=== PATIENT | female | born 1955 | race Caucasian/White ===

== ENCOUNTER 2020-02-18 16:38 | Emergency (ER) | payer SELFPAY | END 2020-02-18 17:04 | disposition home or self-care (01) | LOC: ERS 16:38 | DX: J44.9 Chronic obstructive pulmonary disease, unspecified (principal); F41.9 Anxiety disorder, unspecified; Z87.891 Personal history of nicotine dependence; Z76.0 Encounter for issue of repeat prescription | CPT/HCPCS: 99284 ==

== ENCOUNTER 2020-03-17 19:30 | Emergency (ER) | payer SELFPAY | END 2020-03-17 20:11 | disposition home or self-care (01) | LOC: ERS 19:30 → MERGE 19:30 → ERS 20:11 | DX: Z76.0 Encounter for issue of repeat prescription (principal); J44.9 Chronic obstructive pulmonary disease, unspecified; F17.210 Nicotine dependence, cigarettes, uncomplicated | CPT/HCPCS: 99281 ==

== ENCOUNTER 2020-04-04 16:56 | Emergency (ER) | payer SELFPAY | END 2020-04-04 17:41 | disposition home or self-care (01) | LOC: ERS 16:56 | DX: Z76.0 Encounter for issue of repeat prescription (principal); J44.9 Chronic obstructive pulmonary disease, unspecified; F41.9 Anxiety disorder, unspecified; F17.210 Nicotine dependence, cigarettes, uncomplicated; Z79.51 Long term (current) use of inhaled steroids | CPT/HCPCS: 99281 ==

== ENCOUNTER 2020-07-05 13:09 | Emergency (ER) | payer SELFPAY ==
[2020-07-05] MEDS ORDERED: Magnesium 2 GM/50 ML BAG (IN WATER) ONE (13:34)
[2020-07-05] MEDS ORDERED: Albuterol Sulfate 2.5 mg/3 ml Neb ONE (13:38)
--- NOTE | 2020-07-05 14:12 | RAD ---
Chest AP view INDICATION: Dyspnea COMPARISON: June 05, 2020 FINDINGS: Lungs: Chronic lung changes appear stable. Pleural-parenchymal scarring involving lung apices is sim ilar appearing. Cardiac silhouette: The cardiomediastinal silhouette appears within normal limits. Pulmonary vasculature: Normal Pleural spaces: No pleural effusion or pneumothorax is demonstrated. Upper abdomen: No abnormality seen. Osseous structures: Mild scoliosis is similar appearing. No definite acute osseous abnormality. Additional findings: None. IMPRESSION: No acute cardiopulmonary abnormality.
[2020-07-05 14:14] LABS: #Basophils 0.1 thou/uL (0.0-0.2); #Eosinphils 0.9 thou/uL (0.0-0.7); #Lymphocytes 3.1 thou/uL (1.20-3.40); #Monocytes 0.8 thou/uL (0.11-0.59); #Neutrophils 13.2 thou/uL (1.40-6.50); %Basophils 0.8 % (0.0-1.0); %Eosinophils 4.7 % (0.0-10.0); %Lymphocytes 17.3 % (21.0-51.0); %Monocytes 4.4 % (0.0-10.0); %Neutrophils 72.9 % (42.0-75.0); Hemoglobin 15.5 g/dL (12.0-16.0); Mean Corpuscular HGB CONC 32.8 g/dL (32.0-36.0); Mean Corpuscular Hemoglobin 33.2 pg (27.0-31.0); Mean Platelet Volume 8.3 fL (7.4-10.4); Platelet Count 350 thou/uL (130-400); RBC Distribution Width 11.8 % (11.5-14.5); Red Blood Cell (RBC) Count 4.66 mill/uL (4.20-5.40); White Blood Cell (WBC) Count 18.2 thou/uL (4.8-10.8)
[2020-07-05 14:35] LABS: ALT (SGPT) 10 U/L (8-55); AST (SGOT) 15 U/L (5-34); Albumin 4.4 g/dL (3.4-4.8); Alkaline Phosphatase 67 U/L (40-110); Anion Gap 13 mmol/L (10-20); BUN (Urea Nitrogen) 12 mg/dL (9.8-20.1); Bilirubin, Total 0.3 mg/dL (0.2-1.2); Calc. Creatinine Clearance 0 mL/min (70-130); Calcium 9.2 mg/dL (7.8-10.44); Carbon Dioxide 25 mmol/L (23-31); Chloride 107 mmol/L (98-107); Estimated GFR-MDRD 73; Globulin 2.7 g/dL (2.4-3.5); Glucose 106 mg/dL (80-115); Potassium 3.7 mmol/L (3.5-5.1); Protein, Total 7.1 g/dL (6.0-8.3); Sodium 141 mmol/L (136-145)
== END 2020-07-05 17:30 | disposition home or self-care (01) ==
LOC: ERS 13:09
DX: J44.1 Chronic obstructive pulmonary disease with (acute) exacerbation (principal); F41.9 Anxiety disorder, unspecified; F17.210 Nicotine dependence, cigarettes, uncomplicated; Z79.51 Long term (current) use of inhaled steroids
CPT/HCPCS: 36415; 71045; 80053; 83880; 84484; 85025; 93005; 94644; 96374; J3475; J7611

== ENCOUNTER 2020-09-21 09:45 | Inpatient (IN) | payer SELFPAY ==
[2020-09-21] MEDS ORDERED: Succinylcholine 200 MG/10 ml SYRINGE FS ONE (09:51)
[2020-09-21] MEDS ORDERED: Midazolam HCl 2 mg/2 ml Vial ONE (09:51)
[2020-09-21] MEDS ORDERED: Propofol 1,000 MG/100 ML VIAL IV ONE (10:14)
[2020-09-21 10:31] LABS: #Basophils 0.2 thou/uL (0.0-0.2); #Eosinphils 0.7 thou/uL (0.0-0.7); #Lymphocytes 5.9 thou/uL (1.20-3.40); #Monocytes 0.9 thou/uL (0.11-0.59); #Neutrophils 6.3 thou/uL (1.40-6.50); %Basophils 1.3 % (0.0-1.0); %Eosinophils 4.8 % (0.0-10.0); %Lymphocytes 42.3 % (21.0-51.0); %Monocytes 6.5 % (0.0-10.0); %Neutrophils 45.2 % (42.0-75.0); Hemoglobin 13.3 g/dL (12.0-16.0); Mean Corpuscular HGB CONC 32.7 g/dL (32.0-36.0); Mean Corpuscular Hemoglobin 31.9 pg (27.0-31.0); Mean Corpuscular Volume 97.8 fL (78.0-98.0); Platelet Count 340 thou/uL (130-400); RBC Distribution Width 12.1 % (11.5-14.5); Red Blood Cell (RBC) Count 4.16 mill/uL (4.20-5.40)
[2020-09-21 10:37] LABS: Actual Bicarbonate (HCO3a) 18.3 mEq/L (22-28); Analyzer IN Cardio ER; Base Excess (BEa) -7.8 mEq/L (-2.0 to +3.0); CO2 Tension 39.7 mmHg (35.0-45.0); Calcium, Ionized (arterial) 1.17 mmol/L (1.12-1.30); Carboxyhemoglobin (COHb) 1.9 gm% (0.0-3.0); Hemoglobin (Hb) 13.6 g/dL (12.0-16.0); O2 Tension (PaO2), arterial 403.4 mmHg (> 80.0); Potassium - ABG Lab 3.52 mmol/L (3.70-5.30); Puncture Site LBA; pH, Arterial 7.28 (7.35-7.45)
[2020-09-21 10:38] LABS: ALV-art Gradient -96.525 mmHg (0-20)
[2020-09-21] MEDS ORDERED: Vancomycin 1 GM/200 ML BAG ONE (10:38)
[2020-09-21] MEDS ORDERED: Nitroglycerin 2% Ointment 1 INCH/1 GM Packet ONE (10:38)
[2020-09-21] MEDS ORDERED: Cefepime 2 GM VIAL ONE (10:38)
--- NOTE | 2020-09-21 10:51 | RAD ---
PORTABLE CHEST 1 VIEW: DATE: 09/21/2020. TIME: 10:20 AM. HISTORY: Respiratory failure. COMPARISON: 07/05/2020. FINDINGS/IMPRESSION: An endotracheal tube is present with tips at the level of the clavicular heads. The nasogastric tube can be traced into the stomach with tip excluded from the film. The heart size is normal. The aort a is tortuous. Chronic changes in the lung apices are again noted. No lobar consolidation, pneumoth oraces, or pleural effusions are seen. POS: MZA
[2020-09-21] MEDS ORDERED: Midazolam HCl 5 mg/ml Vial ONE (11:02)
[2020-09-21] MEDS ORDERED: Ondansetron PF 4 MG/2 ML Vial IVP PRN (11:06)
[2020-09-21] MEDS ORDERED: Guaifenesin DM 100-10/5 ML UDCUP PO PRN (11:06)
[2020-09-21] MEDS ORDERED: Bisacodyl 10 MG SUPP PR PRN (11:06)
[2020-09-21 11:16] LABS: Albumin 3.7 g/dL (3.4-4.8)
[2020-09-21 11:18] LABS: Calcium 8.6 mg/dL (7.8-10.44); Chloride 109 mmol/L (98-107); Potassium 3.9 mmol/L (3.5-5.1); Sodium 141 mmol/L (136-145)
[2020-09-21 11:19] LABS: Globulin 2.6 g/dL (2.4-3.5); Glucose 227 mg/dL (80-115); Protein, Total 6.3 g/dL (6.0-8.3)
[2020-09-21 11:20] LABS: Carbon Dioxide 14 mmol/L (23-31)
[2020-09-21 11:21] LABS: Anion Gap 22 mmol/L (10-20); Bilirubin, Total 0.3 mg/dL (0.2-1.2)
[2020-09-21 11:22] LABS: Alkaline Phosphatase 62 U/L (40-110); Calc. Creatinine Clearance 0 mL/min (70-130)
[2020-09-21 11:23] LABS: BUN (Urea Nitrogen) 9 mg/dL (9.8-20.1)
[2020-09-21 11:24] LABS: AST (SGOT) 13 U/L (5-34)
[2020-09-21 11:25] LABS: ALT (SGPT) 8 U/L (8-55); CK (CPK) 140 U/L (29-168)
[2020-09-21 11:30] LABS: SARS-CoV-2 NAA Rapid Test Not Detected (NotDetected)
[2020-09-21 11:50] LABS: PTT 35.9 sec (22.9-36.1); Prothrombin Time 13.7 sec (12.0-14.7)
[2020-09-21] MEDS ORDERED: HumaLOG 300 UNITS/3 ML VIAL SC PRN ×2 (12:49)
[2020-09-21] MEDS ORDERED: Dextrose 5% in Water 1,000 ML IV PRN (12:49)
[2020-09-21] MEDS ORDERED: Dextrose 50% Abboject 50 ML SYRINGE SLOW IVP PRN (12:49)
[2020-09-21] MEDS ORDERED: fentaNYL Citrate/PF 2,000 MCG in Sodium Chloride 0.9% 60 ML IV SCH ×2 (13:00→13:15)
[2020-09-21] MEDS: methylPREDNISolone Sod Succ 40 MG VIAL IVP SCH ×2 (13:14→17:36)
[2020-09-21] MEDS: Sodium Chloride 0.9% 1,000 ML IV SCH (13:14)
[2020-09-21] MEDS ORDERED: Morphine 2 MG/ML VIAL SLOW IVP PRN (13:15)
[2020-09-21] MEDS ORDERED: DISCONTINUE PREVIOUS NARCOTIC PAIN MEDICATIONS AND BENZODIAZEPINES FS SCH (13:15)
[2020-09-21] MEDS ORDERED: Propofol BOLUS 1,000 MG/100 ML VIAL IV PRN (13:15)
[2020-09-21] MEDS ORDERED: Fentanyl BOLUS 250 ML IVPB PRN (13:15)
--- NOTE | 2020-09-21 13:29 | HP ---
REASON FOR ADMISSION: Acute respiratory failure with hypoxia on ventilator, COPD exacerbation, ongoing tobacco abuse. HISTORY OF PRESENTING ILLNESS: Please note, majority of this history was obtained by talking to Dr. Noyola, ER physician, and ER records as the patient is not oriented and is intubated. Per ER physician, the patient called EMS and was found to be in severe shortness of breath in a tripod position. She was given epinephrine, magnesium, steroid shot, and multiple nebulizations and was brought to emergency room. She was saturating 77% on non-rebreather. She was soon intubated on arrival here. The patient also apparently has history of ongoing tobacco abuse. PAST MEDICAL AND SURGICAL HISTORY: History of COPD, ongoing tobacco usage, left wrist cyst removal, appendectomy, tubal ligation, anxiety disorder. CURRENT MEDICATIONS: Cannot obtain as the patient is not oriented. ALLERGIES: NO KNOWN DRUG ALLERGIES. PERSONAL HISTORY: The patient apparently smokes cigarettes and has been doing so for the last 30 years per ER records. Its unclear if patient uses alcohol or drugs. She apparently lives with family. FAMILY HISTORY: Cannot be obtained as the patient is currently intubated. REVIEW OF SYSTEMS: Cannot be obtained as the patient is currently intubated. PHYSICAL EXAMINATION: GENERAL: The patient is a 64-year-old female who is currently on ventilator. VITAL SIGNS: Blood pressure 150/104 on arrival, pulse 120 per minute, respiratory rate 40 per minute, and saturating 80% on non-rebreather. Currently 100% FiO2. Temperature 96.6 degrees. NECK: Supple. No elevated JVD. HEENT: Eyes; extraocular muscles intact. Pupils reacting to light. Oral cavity, mucous membranes are dry. Patient is orally intubated. No exudates seen. CARDIOVASCULAR SYSTEM: S1 and S2 heard, tachycardic. RESPIRATORY SYSTEM: Air entry 1+ bilateral wheezes plus bilateral, rhonchi plus bilateral. ABDOMEN: Soft. Bowel sounds heard. No tenderness, rigidity, or guarding. EXTREMITIES: No peripheral edema or calf tenderness. VASCULAR SYSTEM: Peripheral pulses 1+ bilateral. No ischemic ulcerations or gangrene. CENTRAL NERVOUS SYSTEM: No gross focal sign seen. The patient is currently intubated and cannot actively participate in a neurologic exam. PSYCHIATRIC: Cannot be accurately assessed as patient is currently intubated. LABORATORY DATA: White count of 14, H and H 13 and 40, platelet count 340, MCV is 97, 45% neutrophils. PT/INR, PTT within normal limits. Blood gas done shows a pH of 7.28, pCO2 39, PO2 403, bicarb is 18, serum bicarb is 14, BUN 9, creatinine 0.8. Lactic acid 4.7, serum glucose 227. BNP 188. COVID-19 PCR, the rapid test done in the ER is negative. Chest x-ray done shows signs of COPD, otherwise no obvious infiltrates seen. EKG shows sinus tach. CLINICAL IMPRESSION AND PLAN: The patient will be admitted to ICU for acute on chronic obstructive pulmonary disease exacerbation with acute respiratory failure, on ventilator. She will be on Levaquin, DuoNeb q.6 hourly, and Solu-Medrol 40 mg IV q.6 hourly. We will also gently hydrate her with normal saline at 70 mL per hour. I have consulted Dr. Bryant for Pulmonology. We will repeat her COVID test in view of multiple risk factors. The patient apparently was recently intubated and it is unclear when the patient was recently intubated in the last 4 weeks per ER physician. I have tried calling the patient's next of kin 2 numbers provided #[phone], #[phone] multiple times and I am unable to reach either one of the numbers. Her overall prognosis is guarded. We will continue to closely monitor her. Monitor her in ICU. Job ID: [id number] MTDD
[2020-09-21 13:58] LABS: Lactic Acid 3.1 mmol/L (0.5-2.2)
--- NOTE | 2020-09-21 14:33 | CON ---
DATE OF CONSULTATION: 09/21/2020 CONSULTING PHYSICIAN: Dr. [place]. The following encompasses 45 minutes of critical care time. HISTORY OF PRESENT ILLNESS: The patient is a 64-year-old female who came into the ER complaining of shortness of breath. She was intubated for respiratory failure and was placed on mechanical ventilation. PAST MEDICAL HISTORY: 1. Chronic obstructive pulmonary disease. 2. Anxiety. PAST SURGICAL HISTORY: Appendectomy, cyst removed from her wrist, tubal ligation. MEDICATIONS: Prior to admission, not known at this time. ALLERGIES: NONE. SOCIAL HISTORY: Smokes heavily and done so for at least 30 years. Does not consume alcohol. Does not use illicit drugs. FAMILY MEDICAL HISTORY: Not known. REVIEW OF SYSTEMS: Cannot be obtained because the patient is currently intubated. PHYSICAL EXAMINATION: VITAL SIGNS: Heart rate 83, blood pressure 86/66, O2 saturation 100%, temperature 95.7. GENERAL: The patient is a disheveled-appearing female who appears at least 30 years older than her stated age. HEENT: Unremarkable. NECK: No adenopathy or JVD. LUNGS: Bilateral wheezing with prolonged expiratory phase. CARDIOVASCULAR: S1 and S2. Regular. ABDOMEN: Soft and nontender. EXTREMITIES: No clubbing, cyanosis, edema. LABORATORY DATA: ABG; pH 7.28, pCO2 of 39, pO2 of 403 on assist control, rate 20, tidal volume 400, PEEP 5, FiO2 of 50%. Sodium 141, potassium 3.9, chloride 101, CO2 of 14, BUN 9, creatinine 0.8, glucose 227, lactate 4.7. BNP 188. White blood cell count 14, hematocrit 40, platelet count 340. PT 13.7, INR 1.0, PTT 35.9. COVID test was negative. Chest x-ray shows hyperinflation without evidence of mass, effusion, or infiltrate. ASSESSMENT: 1. Chronic obstructive pulmonary disease with exacerbation. 2. Acute on chronic hypoxic and hypercapnic respiratory failure. 3. Tobacco abuse. PLAN: I have increased the peak inspiratory pressure on the ventilator so that she can have a prolonged expiratory phase. We will continue the steroids. I will increase the frequency of her nebulization treatments. Agree with the Brovana. I will add additional inhaled steroids. Agree with antibiotics. We will follow. Job ID: [id number]
[2020-09-21] MEDS ORDERED: Sodium Chloride 0.9% 1,000 ML IV SCH (16:45)
[2020-09-21] MEDS: Propofol 1,000 MG/100 ML VIAL IV PRN (17:36)
[2020-09-21] MEDS: Budesonide 0.5 MG/2 ML NEB NEB SCH (19:02)
[2020-09-21] MEDS: Arformoterol 15 MCG/2 ML NEB NEB SCH (19:02)
[2020-09-21] MEDS: Famotidine/PF 20 mg/2ml Vial SLOW IVP SCH (20:09)
[2020-09-21] MEDS: Cholecalciferol 1,000 UNITS (25 MCG) TAB PER TUBE SCH (20:10)
[2020-09-21] MEDS: Lorazepam 2 MG/ML VIAL SLOW IVP PRN (20:52)
[2020-09-22] MEDS: methylPREDNISolone Sod Succ 40 MG VIAL IVP SCH ×4 (00:20→19:45)
[2020-09-22] MEDS: Sodium Chloride 0.9% 1,000 ML IV SCH ×3 (00:20→20:59)
[2020-09-22] MEDS: Propofol 1,000 MG/100 ML VIAL IV PRN (02:57)
[2020-09-22 03:49] LABS: #Lymphocytes 0.8 thou/uL (1.20-3.40); #Monocytes 0.2 thou/uL (0.11-0.59); #Neutrophils 13.4 thou/uL (1.40-6.50); %Basophils 0.1 % (0.0-1.0); %Lymphocytes 5.6 % (21.0-51.0); %Monocytes 1.4 % (0.0-10.0); Mean Corpuscular HGB CONC 32.7 g/dL (32.0-36.0); Mean Corpuscular Hemoglobin 32.4 pg (27.0-31.0); Mean Platelet Volume 8.4 fL (7.4-10.4); Platelet Count 295 thou/uL (130-400); RBC Distribution Width 12.1 % (11.5-14.5); White Blood Cell (WBC) Count 14.4 thou/uL (4.8-10.8)
[2020-09-22 04:10] LABS: Anion Gap 14 mmol/L (10-20); BUN (Urea Nitrogen) 13 mg/dL (9.8-20.1); Calc. Creatinine Clearance 62 mL/min (70-130); Carbon Dioxide 20 mmol/L (23-31); Chloride 112 mmol/L (98-107); Glucose 138 mg/dL (80-115); Potassium 4.2 mmol/L (3.5-5.1); Sodium 142 mmol/L (136-145)
[2020-09-22] MEDS: Arformoterol 15 MCG/2 ML NEB NEB SCH ×2 (07:02→19:39)
[2020-09-22] MEDS: Budesonide 0.5 MG/2 ML NEB NEB SCH ×2 (07:02→19:39)
[2020-09-22 07:36] LABS: Actual Bicarbonate (HCO3a) 19.4 mEq/L (22-28); Analyzer IN Cardio ER; Base Excess (BEa) -4.9 mEq/L (-2.0 to +3.0); CO2 Tension 33.4 mmHg (35.0-45.0); Calcium, Ionized (arterial) 1.14 mmol/L (1.12-1.30); Carboxyhemoglobin (COHb) 0.3 gm% (0.0-3.0); Hemoglobin (Hb) 11.5 g/dL (12.0-16.0); O2 Tension (PaO2), arterial 159.6 mmHg (> 80.0); Potassium - ABG Lab 4.26 mmol/L (3.70-5.30); pH, Arterial 7.38 (7.35-7.45)
[2020-09-22] MEDS ORDERED: FLU VACC QS2020-21(65YR UP)/PF 240 MCG/0.7 ML SYRINGE IM ONE (09:00)
[2020-09-22] MEDS: Famotidine/PF 20 mg/2ml Vial SLOW IVP SCH ×2 (09:13→20:59)
[2020-09-22] MEDS: Enoxaparin Sodium 30 MG/0.3 ML SYRINGE SC SCH (09:13)
--- NOTE | 2020-09-22 09:26 | RAD ---
Portable frontal chest radiograph: 09/22/2020 COMPARISON: 09/21/2020 HISTORY: Pneumonia FINDINGS: Stable endotracheal tube and nasogastric tube. Stable lower thoracic spine dextroscoliosis. No pneumothorax or lobar consolidation. No large volume pleural effusion. Mild linear density in the right upper lobe region in bilateral perihilar regions, stable. IMPRESSION: Stable appearance of the chest as above.
[2020-09-22] MEDS: Ascorbic Acid 500 mg Chewable Tablet PO SCH (09:28)
[2020-09-22 11:44] LABS: Puncture Site LBA
[2020-09-22] MEDS: Levofloxacin 750 mg/D5W 500 MG in Premix Bag 1 BAG IVPB SCH (12:30)
--- NOTE | 2020-09-22 14:39 | PRG ---
DATE OF SERVICE: 09/22/2020 SUBJECTIVE: Markell remains mechanically ventilated. . She is sedated for ventilation. OBJECTIVE: VITAL SIGNS: Heart rate is in 70s oximetry is 100%. Intake and output positive 1348. LUNGS: Distant, clear. HEART: Regular rhythm. ABDOMEN: Soft and nontender. EXTREMITIES: Without edema. LABORATORY DATA: White count 14.4, hemoglobin 11, and platelets 295. Sodium 142, potassium 4.2, chloride 112, bicarb 20, BUN 13, and creatinine 0.7. Chest x-ray shows haziness in the right upper lobe. IMPRESSION: Respiratory failure secondary to chronic obstructive pulmonary disease exacerbation. PLAN: Continue supportive care. She is currently not weanable. CRITICAL CARE TIME: 30 minutes. Job ID: [id number]
[2020-09-22] MEDS: Lorazepam 2 MG/ML VIAL SLOW IVP PRN (14:57)
--- NOTE | 2020-09-22 17:03 | PDOC.HOSPP ---
- Subjective Encounter Date: 09/22/20 Encounter Time: 10:30 Subjective: Patient currently intubated. - Objective Vital Signs & Weight: Vital Signs (12 hours) Pulse Resp BP Pulse Ox 09/22/20 14:24 86 105/67 09/22/20 14:23 77 21 H 100 09/22/20 14:00 30 H 09/22/20 12:00 16 09/22/20 10:38 74 88/56 L 09/22/20 10:37 74 16 100 09/22/20 10:00 16 09/22/20 08:00 16 09/22/20 07:40 100 09/22/20 07:03 98 89/55 L 09/22/20 07:02 87 19 100 09/22/20 07:01 87 19 100 09/22/20 06:00 20 Weight Admit Weight 116 lb Weight 116 lb 13.52 oz Most Recent Monitor Data Heart Rate from ECG 96 NIBP 94/59 NIBP BP-Mean 70 Respiration from ECG 16 SpO2 97 I&O: 09/21/20 09/22/20 09/23/20 06:59 06:59 06:59 Intake Total 2223.1 Output Total 875 310 Balance 1348.1 -310 Result Diagrams: 09/22/20 03:16 09/22/20 03:16 Additional Labs: Accuchecks 09/22/20 09/22/20 09/21/20 05:20 00:24 17:38 POC Glucose 139 H 148 H 131 H Hospitalist ROS - Review of Systems Other: Intubated - Medication Medications: Active Medications Generic Name Dose Route Start Last Admin Trade Name Shaneq PRN Reason Stop Dose Admin Albuterol/Ipratropium 3 ml 09/21/20 14:30 09/22/20 14:23 Ipratropium/Albuterol Sulfate 3 Ml Neb NEB 3 ml [id number] [place] Administration Arformoterol Tartrate 15 mcg 09/21/20 18:30 09/22/20 07:02 Arformoterol 15 Mcg/2 Ml Neb NEB 15 mcg BID-RT [place] Administration Ascorbic Acid 1,000 mg 09/22/20 09:00 09/22/20 09:28 Ascorbic Acid 500 Mg Chewable Tablet PO 1,000 mg DAILY [place] Administration Budesonide 0.5 mg 09/21/20 18:30 09/22/20 07:02 Budesonide 0.5 Mg/2 Ml Neb NEB 0.5 mg BID-RT [place] Administration Cholecalciferol 1,000 units 09/21/20 21:00 09/21/20 20:10 Cholecalciferol 1,000 Units (25 Mcg) Tab PER TUBE 1,000 units HS [place] Administration Enoxaparin Sodium 30 mg 09/22/20 09:00 09/22/20 09:13 Enoxaparin Sodium 30 Mg/0.3 Ml Syringe SC 30 mg 0900 [place] Administration Famotidine 20 mg 09/21/20 21:00 09/22/20 09:13 Famotidine/Pf 20 Mg/2ml Vial SLOW IVP 20 mg Q12HR [place] Administration Levofloxacin 500 mg/ Device 100 mls @ 100 mls/hr 09/22/20 12:00 09/22/20 12:30 IVPB 100 mls 1200 [place] Administration Sodium Chloride 1,000 mls @ 70 mls/hr 09/21/20 11:15 09/22/20 00:20 Normal Saline 0.9% IV 1,000 mls .[id number] [place] Administration Dexmedetomidine HCl 400 mcg/ 100 mls @ 0 mls/hr 09/22/20 08:30 09/22/20 08:42 Sodium Chloride IVPB 100 mls INF [place] Administration Protocol Titrate Lorazepam 2 mg 09/21/20 13:15 09/22/20 14:57 Lorazepam 2 Mg/Ml Vial SLOW IVP 10/21/20 13:15 2 mg Q1H PRN Administration Breakthrough agitation Methylprednisolone Sodium Succinate 40 mg 09/21/20 12:00 09/22/20 12:30 Methylprednisolone Sod Succ 40 Mg Vial IVP 40 mg Q6HR [place] Administration Propofol 1,000 mg 09/21/20 13:15 09/22/20 02:57 Propofol 1,000 Mg/100 Ml Vial IV 10/21/20 13:15 1,000 mg INF PRN Administration TO ACHIEVE GOAL RASS Protocol - Exam Heart: negative: RRR, no murmur, no gallops, no rubs, normal peripheral pulses, irregular, diminshed peripheral pulses, murmur present, II/IV, III/IV Respiratory: negative: CTAB, no wheezes, no rales, no ronchi, normal chest expa nsion, no tachypnea, normal percussion, rales, rhonchi, tachypneic, wheezes Gastrointestinal: negative: soft, non-tender, non-distended, normal bowel sounds, no palpable masses, no hepatomegaly, no splenomegaly, no bruit, no guarding, no rigidity, tender to palpation, distended, diminished bowl sounds, voluntary guarding Extremities: 1+ LE edema Hosp A/P (1) Acute respiratory failure with hypoxia Code(s): J96.01 - ACUTE RESPIRATORY FAILURE WITH HYPOXIA Status: Acute (2) COPD exacerbation Code(s): J44.1 - CHRONIC OBSTRUCTIVE PULMONARY DISEASE W (ACUTE) EXACERBATION Status: Acute (3) Smoker Code(s): F17.200 - NICOTINE DEPENDENCE, UNSPECIFIED, UNCOMPLICATED Status: Acute (4) Sepsis Code(s): A41.9 - SEPSIS, UNSPECIFIED ORGANISM Status: Acute - Plan We will continue current antibiotics. Continue steroids. Pulmonology consulted. Patient currently is on 40% FiO2 and 5 of PEEP. Vital signs stable. She was unable to tolerate propofol and kept dropping her blood pressures at this time her sedation was changed to Precedex and fentanyl.
[2020-09-22] MEDS: Cholecalciferol 1,000 UNITS (25 MCG) TAB PER TUBE SCH (20:59)
[2020-09-23] MEDS: Lorazepam 2 MG/ML VIAL SLOW IVP PRN ×6 (00:06→21:20)
[2020-09-23] MEDS: methylPREDNISolone Sod Succ 40 MG VIAL IVP SCH ×4 (00:07→17:47)
[2020-09-23] MEDS: Budesonide 0.5 MG/2 ML NEB NEB SCH ×2 (05:10→18:46)
[2020-09-23] MEDS: Arformoterol 15 MCG/2 ML NEB NEB SCH ×2 (05:17→18:46)
[2020-09-23 07:27] LABS: Actual Bicarbonate (HCO3a) 22.1 mEq/L (22-28); Base Excess (BEa) -2.5 mEq/L (-2.0 to +3.0); CO2 Tension 37.4 mmHg (35.0-45.0); Calcium, Ionized (arterial) 1.21 mmol/L (1.12-1.30); Carboxyhemoglobin (COHb) 0.3 gm% (0.0-3.0); Hemoglobin (Hb) 11.8 g/dL (12.0-16.0); O2 Tension (PaO2), arterial 94.7 mmHg (> 80.0); Potassium - ABG Lab 3.67 mmol/L (3.70-5.30); pH, Arterial 7.39 (7.35-7.45)
[2020-09-23 07:28] LABS: Puncture Site RRA
[2020-09-23] MEDS: Sodium Chloride 0.9% 1,000 ML IV SCH ×2 (07:47→12:02)
[2020-09-23] MEDS ORDERED: Sodium Chloride 0.9% 10 ML ONE (08:06)
--- NOTE | 2020-09-23 08:59 | RAD ---
PORTABLE CHEST 1 VIEW: Date: 09/23/2020 Time: 0439 hours HISTORY: Pneumonia. Respiratory failure. FINDINGS/IMPRESSION: Endotracheal and nasogastric tubes remain in place. The heart size is normal. The lungs are expanded without lobar consolidation, pneumothoraces, or pleural effusions. Lower thoracic spine dextroscolios is is stable. Mild densities in the upper lobe regions are again seen. POS: MZA
[2020-09-23] MEDS: Enoxaparin Sodium 30 MG/0.3 ML SYRINGE SC SCH (09:47)
[2020-09-23] MEDS: Ascorbic Acid 500 mg Chewable Tablet PO SCH (09:47)
[2020-09-23] MEDS: Famotidine/PF 20 mg/2ml Vial SLOW IVP SCH ×2 (09:47→21:12)
[2020-09-23] MEDS: Levofloxacin 750 mg/D5W 500 MG in Premix Bag 1 BAG IVPB SCH (12:02)
--- NOTE | 2020-09-23 14:00 | PRG ---
DATE OF SERVICE: 09/23/2020 SUBJECTIVE: The patient has been more cooperative on Precedex. Her hemodynamics are stable. OBJECTIVE: VITAL SIGNS: Blood pressure 109/67, heart rate is 81, respiratory rates in the teens. Intake and outputs, positive 1242. LUNGS: Clear. HEART: Regular rhythm. ABDOMEN: Soft. EXTREMITIES: Without edema. LABORATORY DATA: Chest x-ray shows no new infiltrates. She has mild increase in interstitial markings in the right apex. IMPRESSION: Respiratory failure, secondary to chronic obstructive pulmonary disease, clinically improved. We will do a spontaneous breathing trial in the morning. I suspect she will be a candidate for extubation in the morning. Her blood gas today looked good with a pH 7.39, CO2 of 37, PO2 of 94. Critical care time 30 min. Job ID: [id number] MTDD
--- NOTE | 2020-09-23 16:14 | PDOC.HOSPP ---
- Subjective Encounter Date: 09/23/20 Encounter Time: 11:15 Subjective: Patient intubated - Objective Vital Signs & Weight: Vital Signs (12 hours) Temp Pulse Resp BP Pulse Ox 09/23/20 14:31 79 122/73 09/23/20 14:30 79 13 98 09/23/20 14:00 16 09/23/20 12:00 97.8 F 18 09/23/20 11:47 81 109/67 09/23/20 10:00 16 09/23/20 08:00 98.6 F 17 97 09/23/20 06:34 96 112/73 09/23/20 06:00 97.8 F 18 09/23/20 05:12 77 127/78 09/23/20 05:11 80 18 100 Weight Admit Weight 116 lb Weight 112 lb 14.027 oz Most Recent Monitor Data Heart Rate from ECG 98 NIBP 120/73 NIBP BP-Mean 88 Respiration from ECG 20 SpO2 99 I&O: 09/22/20 09/23/20 09/24/20 06:59 06:59 06:59 Intake Total 2223.1 2332.7 Output Total 875 1100 390 Balance 1348.1 1232.7 -390 Result Diagrams: 09/22/20 03:16 09/22/20 03:16 Additional Labs: Accuchecks 09/23/20 09/23/20 09/23/20 12:26 06:31 00:12 POC Glucose 144 H 167 H 173 H Hospitalist ROS - Review of Systems Other: Intubated - Medication Medications: Active Medications Generic Name Dose Route Start Last Admin Trade Name Shaneq PRN Reason Stop Dose Admin Albuterol/Ipratropium 3 ml 09/21/20 14:30 09/23/20 14:30 Ipratropium/Albuterol Sulfate 3 Ml Neb NEB 3 ml [id number] [place] Administration Arformoterol Tartrate 15 mcg 09/21/20 18:30 09/23/20 05:17 Arformoterol 15 Mcg/2 Ml Neb NEB 15 mcg BID-RT [place] Administration Ascorbic Acid 1,000 mg 09/22/20 09:00 09/23/20 09:47 Ascorbic Acid 500 Mg Chewable Tablet PO 1,000 mg DAILY [place] Administration Budesonide 0.5 mg 09/21/20 18:30 09/23/20 05:10 Budesonide 0.5 Mg/2 Ml Neb NEB 0.5 mg BID-RT [place] Administration Cholecalciferol 1,000 units 09/21/20 21:00 09/22/20 20:59 Cholecalciferol 1,000 Units (25 Mcg) Tab PER TUBE 1,000 units HS [place] Administration Enoxaparin Sodium 30 mg 09/22/20 09:00 09/23/20 09:47 Enoxaparin Sodium 30 Mg/0.3 Ml Syringe SC 30 mg 0900 [place] Administration Famotidine 20 mg 09/21/20 21:00 09/23/20 09:47 Famotidine/Pf 20 Mg/2ml Vial SLOW IVP 20 mg Q12HR [place] Administration Levofloxacin 500 mg/ Device 100 mls @ 100 mls/hr 09/22/20 12:00 09/23/20 12:02 IVPB 100 mls 1200 [place] Administration Sodium Chloride 1,000 mls @ 70 mls/hr 09/21/20 11:15 09/23/20 12:02 Normal Saline 0.9% IV 1,000 mls .[id number] [place] Administration Dexmedetomidine HCl 400 mcg/ 100 mls @ 0 mls/hr 09/22/20 08:30 09/23/20 15:53 Sodium Chloride IVPB 100 mls INF [place] Administration Protocol Titrate Insulin Human Lispro 0 units 09/21/20 12:49 09/23/20 06:35 Humalog 300 Units/3 Ml Vial SC 3 unit .AGGRESSIVE SLIDING PRN Administration Aggressive [employer] Scale Lorazepam 2 mg 09/21/20 13:15 09/23/20 15:00 Lorazepam 2 Mg/Ml Vial SLOW IVP 10/21/20 13:15 2 mg Q1H PRN Administration Breakthrough agitation Methylprednisolone Sodium Succinate 40 mg 09/21/20 12:00 09/23/20 12:03 Methylprednisolone Sod Succ 40 Mg Vial IVP 40 mg Q6HR [place] Administration Propofol 1,000 mg 09/21/20 13:15 09/22/20 02:57 Propofol 1,000 Mg/100 Ml Vial IV 10/21/20 13:15 1,000 mg INF PRN Administration TO ACHIEVE GOAL RASS Protocol - Exam Neck: negative: supple, symmetric, no JVD, no thyromegaly, no lymphadenopathy, no carotid bruit, JVD Heart: negative: RRR, no murmur, no gallops, no rubs, normal peripheral pulses, irregular, diminshed peripheral pulses, murmur present, II/IV, III/IV Respiratory: negative: CTAB, no wheezes, no rales, no ronchi, normal chest expansion, no tachypnea, normal percussion, rales, rhonchi, tachypneic, wheezes Hosp A/P (1) Acute respiratory failure with hypoxia Code(s): J96.01 - ACUTE RESPIRATORY FAILURE WITH HYPOXIA Status: Acute (2) COPD exacerbation Code(s): J44.1 - CHRONIC OBSTRUCTIVE PULMONARY DISEASE W (ACUTE) EXACERBATION Status: Acute (3) Smoker Code(s): F17.200 - NICOTINE DEPENDENCE, UNSPECIFIED, UNCOMPLICATED Status: Acute (4) Sepsis Code(s): A41.9 - SEPSIS, UNSPECIFIED ORGANISM Status: Acute - Plan We will continue current antibiotics. Continue steroids. Pulmonology consulted. Patient currently is on 40% FiO2 and 5 of PEEP. Vital signs stable. She was unable to tolerate propofol and kept dropping her blood pressures at this time her sedation was changed to Precedex and fentanyl. 09/23 patient more awake however remains intubated. We will continue steroids and antibiotics. Patient on DVT prophylaxis.
[2020-09-23] MEDS ORDERED: Non-Formulary Item 1 EACH (Tiotropium Bromide [Spiriva] 18 MCG Cap.W.Dev) INH SCH (21:00)
[2020-09-23] MEDS: Cholecalciferol 1,000 UNITS (25 MCG) TAB PER TUBE SCH (21:12)
[2020-09-24] MEDS: methylPREDNISolone Sod Succ 40 MG VIAL IVP SCH ×4 (01:19→22:00)
[2020-09-24] MEDS: Lorazepam 2 MG/ML VIAL SLOW IVP PRN (02:02)
[2020-09-24 03:31] LABS: #Eosinphils 0.1 thou/uL (0.0-0.7); #Lymphocytes 0.6 thou/uL (1.20-3.40); #Monocytes 0.4 thou/uL (0.11-0.59); #Neutrophils 12.1 thou/uL (1.40-6.50); %Lymphocytes 4.5 % (21.0-51.0); %Monocytes 3.2 % (0.0-10.0); %Neutrophils 91.2 % (42.0-75.0); Hemoglobin 9.2 g/dL (12.0-16.0); Mean Corpuscular HGB CONC 32.5 g/dL (32.0-36.0); Mean Corpuscular Hemoglobin 34.4 pg (27.0-31.0); Mean Platelet Volume 8.7 fL (7.4-10.4); Platelet Count 207 thou/uL (130-400); RBC Distribution Width 12.4 % (11.5-14.5); Red Blood Cell (RBC) Count 2.67 mill/uL (4.20-5.40); White Blood Cell (WBC) Count 13.3 thou/uL (4.8-10.8)
[2020-09-24] MEDS: Sodium Chloride 0.9% 1,000 ML IV SCH (03:57)
[2020-09-24 06:09] LABS: ALT (SGPT) 20 U/L (8-55); AST (SGOT) 23 U/L (5-34); Albumin 3.2 g/dL (3.4-4.8); Alkaline Phosphatase 49 U/L (40-110); Anion Gap 15 mmol/L (10-20); BUN (Urea Nitrogen) 20 mg/dL (9.8-20.1); Bilirubin, Total 0.2 mg/dL (0.2-1.2); Calc. Creatinine Clearance 65 mL/min (70-130); Calcium 8.1 mg/dL (7.8-10.44); Carbon Dioxide 16 mmol/L (23-31); Chloride 114 mmol/L (98-107); Globulin 2.6 g/dL (2.4-3.5); Glucose 158 mg/dL (80-115); Magnesium 2.3 mg/dL (1.6-2.6); Potassium 4.5 mmol/L (3.5-5.1); Protein, Total 5.8 g/dL (6.0-8.3); Sodium 140 mmol/L (136-145)
[2020-09-24 06:17] LABS: Phosphorus 1.9 mg/dL (2.3-4.7)
[2020-09-24] MEDS: Budesonide 0.5 MG/2 ML NEB NEB SCH ×2 (06:56→18:16)
[2020-09-24] MEDS: Arformoterol 15 MCG/2 ML NEB NEB SCH ×2 (06:56→18:16)
[2020-09-24 07:09] LABS: Actual Bicarbonate (HCO3a) 21.6 mEq/L (22-28); Base Excess (BEa) -2.3 mEq/L (-2.0 to +3.0); CO2 Tension 34.3 mmHg (35.0-45.0); Calcium, Ionized (arterial) 1.19 mmol/L (1.12-1.30); Carboxyhemoglobin (COHb) 0.3 gm% (0.0-3.0); Hemoglobin (Hb) 12.2 g/dL (12.0-16.0); O2 Tension (PaO2), arterial 92.3 mmHg (> 80.0); Potassium - ABG Lab 4.17 mmol/L (3.70-5.30); pH, Arterial 7.42 (7.35-7.45)
[2020-09-24 07:11] LABS: ALV-art Gradient 78.725 mmHg (0-20); Puncture Site RRA
--- NOTE | 2020-09-24 07:41 | PRG ---
DATE OF SERVICE: 09/24/2020 35 minutes of critical care time. SUBJECTIVE: The patient remains intubated on mechanical ventilation. She was placed on spontaneous breathing. This morning, she is doing well. OBJECTIVE: VITAL SIGNS: Temperature 98.2, pulse 87, blood pressure 142/80, and O2 saturation 96%. She is currently sedated on Precedex. Total intake of 2579, output 1340. HEENT: Unremarkable. NECK: No adenopathy or JVD. CHEST: With a faint wheeze in the left upper lobe. Right side clear. CARDIAC: S1, S2. Regular. ABDOMEN: Soft. EXTREMITIES: No edema. DIAGNOSTIC DATA: Chest x-ray shows hyperinflation, no infiltrates. LABORATORY DATA: Sodium 140, potassium 4.5, chloride 114, CO2 of 16, BUN 20, creatinine 0.6, glucose 158, phosphorus 1.9. White blood cell count 13.3, hematocrit 28.3, and platelet count 207. The pH is 7.42, pCO2 of 34, pO2 of 92 on CPAP 5, pressure support 10. ASSESSMENT: 1. Chronic obstructive pulmonary disease with exacerbation. 2. Acute respiratory failure, requiring mechanical ventilation. 3. Tobacco abuse. PLAN: The patient will be extubated. I will initiate physical therapy. We will stop her IV fluids and continue steroids, but taper dose. Continue nebulization treatments and antibiotics. Job ID: [id number]
[2020-09-24] MEDS ORDERED: Sodium Phosphate 40 MMOL in Sodium Chloride 0.9% 250 ML 250 ML IVPB SCH (07:45)
--- NOTE | 2020-09-24 08:43 | RAD ---
PORTABLE CHEST: Date: 09/24/2020 HISTORY: Pneumonia. CCU follow-up. COMPARISON: 09/23/2020. FINDINGS/IMPRESSION: ET tube and NG tube are in place. Lungs appear aerated and clear of confluent infiltrate or consolida tion. No interval change seen. POS: OFF
[2020-09-24] MEDS: Enoxaparin Sodium 30 MG/0.3 ML SYRINGE SC SCH (09:54)
[2020-09-24] MEDS: Ascorbic Acid 500 mg Chewable Tablet PO SCH (09:54)
[2020-09-24] MEDS: Famotidine/PF 20 mg/2ml Vial SLOW IVP SCH ×2 (09:55→22:00)
[2020-09-24] MEDS: Levofloxacin 750 mg/D5W 500 MG in Premix Bag 1 BAG IVPB SCH (12:16)
[2020-09-24] MEDS: ALPRAZolam 0.25 MG TAB PO PRN ×2 (12:16→15:53)
[2020-09-24] MEDS: Acetaminophen 325 MG TAB PO PRN (15:19)
--- NOTE | 2020-09-24 17:34 | PDOC.HOSPP ---
- Subjective Encounter Date: 09/24/20 Encounter Time: 17:50 Subjective: Patient up in bed extubated today doing well. - Objective Vital Signs & Weight: Vital Signs (12 hours) Temp Pulse Resp BP Pulse Ox 09/24/20 14:02 113 H 25 H 94 L 09/24/20 13:00 98.4 F 09/24/20 12:00 100 09/24/20 11:35 94 L 09/24/20 11:32 137 H 30 H 94 L 09/24/20 08:20 99 09/24/20 08:00 15 97 09/24/20 07:00 98.4 F 09/24/20 06:57 83 141/82 H 09/24/20 06:00 15 Weight Admit Weight 116 lb Weight 110 lb 14.28 oz Most Recent Monitor Data Heart Rate from ECG 140 NIBP 172/97 NIBP BP-Mean 122 Respiration from ECG 42 SpO2 94 I&O: 09/23/20 09/24/20 09/25/20 06:59 06:59 06:59 Intake Total 2332.7 2579.2 Output Total 1100 1340 1110 Balance 1232.7 1239.2 -1110 Result Diagrams: 09/24/20 03:21 09/24/20 05:47 Additional Labs: Accuchecks 09/23/20 09/22/20 18:29 17:21 POC Glucose 120 H 152 H Hospitalist ROS - Review of Systems Cardiovascular: denies: chest pain, palpitations, orthopnea, paroxysmal noc. dyspnea, edema, light headedness, other Gastrointestinal: denies: nausea, vomiting, abdominal pain, diarrhea, constipation, melena, hematochezia, other Genitourinary: denies: dysuria, frequency, incontinence, hematuria, retention, other - Medication Medications: Active Medications Generic Name Dose Route Start Last Admin Trade Name Freq PRN Reason Stop Dose Admin Acetaminophen 650 mg 09/21/20 11:06 09/24/20 15:19 Acetaminophen 325 Mg Tab PO 650 mg Q4H PRN Administration Headache/Fever/Mild Pain (1-3) Albuterol/Ipratropium 3 ml 09/21/20 14:30 09/24/20 14:02 Ipratropium/Albuterol Sulfate 3 Ml Neb NEB 3 ml [id number] INDIA Administration Alprazolam 0.25 mg 09/24/20 12:11 09/24/20 15:53 Alprazolam 0.25 Mg Tab PO 0.25 mg TIDPRN PRN Administration Anxiety Arformoterol Tartrate 15 mcg 09/21/20 18:30 09/24/20 06:56 Arformoterol 15 Mcg/2 Ml Neb NEB 15 mcg BID-RT IND[place] Administration Ascorbic Acid 1,000 mg 09/22/20 09:00 09/24/20 09:54 Ascorbic Acid 500 Mg Chewable Tablet PO 1,000 mg DAILY IND[place] Administration Budesonide 0.5 mg 09/21/20 18:30 09/24/20 06:56 Budesonide 0.5 Mg/2 Ml Neb NEB 0.5 mg BID-RT [place] Administration Cholecalciferol 1,000 units 09/21/20 21:00 09/23/20 21:12 Cholecalciferol 1,000 Units (25 Mcg) Tab PER TUBE 1,000 units HS IND[place] Administration Enoxaparin Sodium 30 mg 09/22/20 09:00 09/24/20 09:54 Enoxaparin Sodium 30 Mg/0.3 Ml Syringe SC 30 mg 0900 IND[place] Administration Famotidine 20 mg 09/21/20 21:00 09/24/20 09:55 Famotidine/Pf 20 Mg/2ml Vial SLOW IVP 20 mg Q12HR [place] Administration Levofloxacin 500 mg/ Device 100 mls @ 100 mls/hr 09/22/20 12:00 09/24/20 12:16 IVPB 100 mls 1200 [place] Administration Insulin Human Lispro 0 units 09/21/20 12:49 09/23/20 06:35 Humalog 300 Units/3 Ml Vial SC 3 unit .AGGRESSIVE SLIDING PRN Administration Aggressive Correctional Scale Methylprednisolone Sodium Succinate 20 mg 09/24/20 09:00 09/24/20 09:55 Methylprednisolone Sod Succ 40 Mg Vial IVP 20 mg BID [place] Administration - Exam Neck: negative: supple, symmetric, no JVD, no thyromegaly, no lymphadenopathy, no carotid bruit, JVD Heart: negative: RRR, no murmur, no gallops, no rubs, normal peripheral pulses, irregular, diminshed peripheral pulses, murmur present, II/IV, III/IV Respiratory: negative: CTAB, no wheezes, no rales, no ronchi, normal chest expansion, no tachypnea, normal percussion, rales, rhonchi, tachypneic, wheezes Gastrointestinal: negative: soft, non-tender, non-distended, normal bowel sounds, no palpable masses, no hepatomegaly, no splenomegaly, no bruit, no guarding, no rigidity, tender to palpation, distended, diminished bowl sounds, voluntary guarding Hosp A/P (1) Acute respiratory failure with hypoxia Code(s): J96.01 - ACUTE RESPIRATORY FAILURE WITH HYPOXIA Status: Acute (2) COPD exacerbation Code(s): J44.1 - CHRONIC OBSTRUCTIVE PULMONARY DISEASE W (ACUTE) EXACERBATION Status: Acute (3) Smoker Code(s): F17.200 - NICOTINE DEPENDENCE, UNSPECIFIED, UNCOMPLICATED Status: Acute (4) Sepsis Code(s): A41.9 - SEPSIS, UNSPECIFIED ORGANISM Status: Acute - Plan We will continue current antibiotics. Continue steroids. Pulmonology consulted. Patient currently is on 40% FiO2 and 5 of PEEP. Vital signs stable. She was unable to tolerate propofol and kept dropping her blood pressures at this time her sedation was changed to Precedex and fentanyl. 09/23 patient more awake however remains intubated. We will continue steroids and antibiotics. Patient on DVT prophylaxis. 09/24 sepsis resolved. We will continue steroids duo nebs. Patient extubated today doing well. Possible discharge in the next 24 hours.
[2020-09-24] MEDS ORDERED: Lisinopril 20 MG TAB PO SCH (17:45)
[2020-09-24] MEDS: Cholecalciferol 1,000 UNITS (25 MCG) TAB PER TUBE SCH (22:00)
[2020-09-25] MEDS ORDERED: Nicotine 14 MG PATCH TOP SCH ×2 (01:00→09:00)
[2020-09-25] MEDS: Acetaminophen 325 MG TAB PO PRN (03:26)
[2020-09-25] MEDS: ALPRAZolam 0.25 MG TAB PO PRN (03:27)
[2020-09-25 08:25] VITALS: BP 143/88; TEMP 98.8
[2020-09-25] MEDS: methylPREDNISolone Sod Succ 40 MG VIAL IVP SCH (08:36)
[2020-09-25] MEDS: Arformoterol 15 MCG/2 ML NEB NEB SCH (08:36)
[2020-09-25] MEDS: Enoxaparin Sodium 30 MG/0.3 ML SYRINGE SC SCH (08:36)
[2020-09-25] MEDS: Ascorbic Acid 500 mg Chewable Tablet PO SCH (08:36)
[2020-09-25] MEDS: Famotidine/PF 20 mg/2ml Vial SLOW IVP SCH (08:36)
[2020-09-25] MEDS: Budesonide 0.5 MG/2 ML NEB NEB SCH (08:37)
--- NOTE | 2020-09-25 10:40 | PRG ---
DATE OF SERVICE: 09/25/2020 SUBJECTIVE: The patient is doing well. She was extubated yesterday, and she is now on the floor. OBJECTIVE: VITAL SIGNS: On exam, temperature 98.8, pulse 100, respirations 20, O2 saturation 96% on room air, and blood pressure 143/88. HEENT: Unremarkable. NECK: No adenopathy or JVD. CHEST: Clear. CARDIAC: S1 and S2. Regular. ABDOMEN: Soft. EXTREMITIES: No edema. ASSESSMENT: 1. Chronic obstructive pulmonary disease with exacerbation. 2. Tobacco abuse. PLAN: She is stable to go home from my standpoint. I would recommend tapering her steroids over a couple of weeks, keeping her on DuoNebs as needed and putting her on a medication such as Symbicort or Advair. She will not be following up with me. Job ID: [id number]
[2020-09-25 11:57] VITALS: BMI 18.4
--- NOTE | 2020-09-25 15:25 | PDOC.DS.DS ---
Provider - Provider Date of Admission: 09/21/20 11:06 Date of Discharge: 09/25/20 Admitting Provider: Orion Birmingham MD Consultations: Pulmonary Primary Care Physician: Lizzie Gilbert NP Course - Hospital Course Hospital Course: Patient is a 5-year-old female who initially presented to the hospital with shortness of breath and subsequently intubated in the ER. She was treated for COPD exacerbation. She was also treated with antibiotics. Patient was extubated she continued to improve in the next day she was discharged home. Patient has a history of smoking she was advised against smoking cessation. Per the nursing staff she refused all her medications this morning. To follow-up with pulmonology as outpatient. Pulmonology has cleared her to be discharged. Resuscitation Status: 09/21/20 11:03 Resuscitation Status Routine Resuscitation Status: FULL: Full Resuscitation - Labs Lab Results: 09/24/20 03:21 09/24/20 05:47 Abnormal Lab Results - Last 48 hrs 09/24/20 03:21: WBC 13.3 H, RBC 2.67 L, Hgb 9.2 L, Hct 28.3 L, MCV 106.0 H, MCH 34.4 H, Neutrophils % 91.2 H, Lymphocytes % 4.5 L, Neutrophils # 12.1 H, Lymphocytes # 0.6 L 09/24/20 05:47: Chloride 114 H, Carbon Dioxide 16 L, Phosphorus 1.9 L, Serum Total Protein 5.8 L, Albumin 3.2 L 09/24/20 06:57: Bicarbonate Actual 21.6 L, ABG pCO2 34.3 L, ABG pO2 92.3 H, ABG O2 Content 16.7 L, ABG Base Excess -2.3 L, A-a O2 Gradient 78.725 H, Chloride 110 H Microbiology - Entire Visit 09/21/20 17:01 Bronchial Washing - Aspirate Respiratory Culture - Final 09/21/20 10:15 Venous blood - Left Hand Blood Culture - Preliminary NO GROWTH AT 48 HOURS 09/21/20 10:15 Venous blood - Right Hand Blood Culture - Preliminary NO GROWTH AT 48 HOURS 09/21/20 10:10 Urine jackson catheter Urine Culture - Final NO GROWTH AT 48 HOURS - Physical Exam Vitals: Vital Signs (12 hours) Temp Pulse Resp BP Pulse Ox 09/25/20 11:27 102 H 20 96 09/25/20 08:38 96 09/25/20 08:37 100 20 96 09/25/20 08:36 100 20 96 09/25/20 08:34 100 20 96 09/25/20 08:00 98.8 F 90 20 143/88 H 97 09/25/20 03:53 98.4 F 97 16 137/73 96 Weight Admit Weight 110 lb 3.698 oz Weight 110 lb 14.28 oz Most Recent Monitor Data Heart Rate from ECG 107 NIBP 150/88 NIBP BP-Mean 108 Respiration from ECG 22 SpO2 94 Physical Exam: The patient was seen and examined on the day of discharge. Problem - Problem (1) Acute respiratory failure with hypoxia Code(s): J96.01 - ACUTE RESPIRATORY FAILURE WITH HYPOXIA Status: Acute (2) COPD exacerbation Code(s): J44.1 - CHRONIC OBSTRUCTIVE PULMONARY DISEASE W (ACUTE) EXACERBATION Status: Acute (3) Smoker Code(s): F17.200 - NICOTINE DEPENDENCE, UNSPECIFIED, UNCOMPLICATED Status: Acute (4) Sepsis Code(s): A41.9 - SEPSIS, UNSPECIFIED ORGANISM Status: Acute Plan - Discharge Medications Prescriptions: Levofloxacin [Levaquin] 500 mg PO DAILY #6 tablet Famotidine [Pepcid] 20 mg PO BID #14 tab predniSONE 40 mg PO QAM-WM #4 tab Home Medications: Medication Instructions Recorded Confirmed Type Ipratropium/Albuterol Sulfate 2 puff INH PRN PRN 09/21/20 09/21/20 History [DuoNeb] Tiotropium [place] [Spiriva] 1 puff INH BID 09/21/20 09/21/20 History Famotidine [Pepcid] 20 mg PO BID #14 tab 09/25/20 Rx Levofloxacin [Levaquin] 500 mg PO DAILY #6 tablet 09/25/20 Rx predniSONE 40 mg PO QAM-WM #4 tab 09/25/20 Rx Allergies: No Known Allergies Allergy (Verified 09/21/20 14:53) - Discharge Instructions Activity:: Activity as Tolerated Nourishment:: Heart Healthy Diet - Follow up Plan Referrals: 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
--- NOTE | 2020-09-27 07:12 | PQF ---
CLINICAL DOCUMENTATION CLARIFICATION FORM: Dear : Dahiana Benitez Date / Time: 09/27/20 0712 Please exercise your independent, professional judgment in responding to the clarification form. Clinical indicators are provided on the bottom of this form for your review Based on the clinical indicators on admit, can you determine if Sepsis was present at the time of admission? Diagnosis: Sepsis Present on Admission (POA): [ x ] Yes [ ] No [ ] Unable to determine Physician Signature: Date/Time: For continuity of documentation, please document condition throughout progress notes and discharge summary. Thank You. To be completed by CDI/Coding staff for physician review: Present Clinical Indicators - Signs / Symptoms / Labs Results and Location in Medical Record [X] WBC 14.0, Plt count 340, Neutrophils 45.2, Lactic acid 4.7 Laboratory 09/21 [X] Blood culture : No growth in 5days Microbiology 09/21 [X] BP 129/93, Pulse 101, Resp 16, temp 96.8 Vital signs 09/21 [X] Acute respiratory failure H&P p1 09/21 Dr Birmingham [X] Sepsis HPN p5 09/22 Dr Benitez Present Risk Factors Results and Location in Medical Record [X] 65 year-old Female H&P p1 09/21 Dr Birmingham [X] COPD exacerbation H&P p1 09/21 Dr Birmingham [X] Smoker H&P p1 09/21 Dr Birmingham Present Treatments Results and Location in Medical Record [X] IV Cefepime 2 gm JAN 03 [X] IV Levaquin 750 mg JAN 03 [X] IV Solu-Medrol 40 mg JAN 03 [X] IV Vancomycin 1 gm JAN 03 [X] IVF NS 1L JAN 03 [X] On mechanical ventilator Respiratory panel 09/21 [X] Pulmonary consult Consult Dr Bryant 09/21 [X] Sepsis protocol ED notes 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
--- NOTE | 2020-09-29 09:36 | EKG ---
Test Reason : Blood Pressure : / mmHG Vent. Rate : 119 BPM Atrial Rate : 119 BPM P-R Int : 140 ms QRS Dur : 088 ms QT Int : 342 ms P-R-T Axes : 084 -30 087 degrees QTc Int : 481 ms Sinus tachycardia Right atrial enlargement Left axis deviation Pulmonary disease pattern Septal infarct , age undetermined Abnormal ECG Confirmed by CR MACE DO ([id number]), picture enlarger CINDY MÁRQUEZ ([id number]) on 09/29/2020 9:35:49 AM Referred By: Confirmed By:CR MACE DO
== END 2020-09-25 13:07 | disposition home or self-care (01) | DRG 208 ==
LOC: ERS 09:45 → CCU 11:06 → ONC 09-24 20:56
PROVIDERS: ADMIT Internal Medicine; ATTEND Internal Medicine
PROC: 5A1945Z Respiratory Ventilation, 24-96 Consecutive Hours (ICD-10-PCS; principal; 2020-09-21)
PROC: 0BH17EZ Insertion of Endotracheal Airway into Trachea, Via Natural or Artificial Opening (ICD-10-PCS; 2020-09-21)
PROC: 8E0ZXY6 Isolation (ICD-10-PCS; 2020-09-21)
DX: J44.1 Chronic obstructive pulmonary disease with (acute) exacerbation (principal); J96.21 Acute and chronic respiratory failure with hypoxia; J96.22 Acute and chronic respiratory failure with hypercapnia; A41.9 Sepsis, unspecified organism; Z20.828 Contact with and (suspected) exposure to other viral communicable diseases; F41.9 Anxiety disorder, unspecified; F17.210 Nicotine dependence, cigarettes, uncomplicated; Z28.21 Immunization not carried out because of patient refusal; Z78.1 Physical restraint status; Z90.49 Acquired absence of other specified parts of digestive tract; Z98.51 Tubal ligation status; Z79.899 Other long term (current) drug therapy
CPT/HCPCS: 31500; 36415; 36416; 36600; 51702; 71045; 80048; 80053; 82550; 82805; 83605; 83735; 83880; 84100; 84484; 85025; 85610; 85730; 87040; 87070; 87086; 87205; 93005; 94002; 94003; 94640; 96365; 96366; 96368; 96374; 96375; 96376; J0692; J1650; J1956; J2060; J2250; J2704; J2920; J3010; J3370; J3490; J7050; J7620; J7626; S0028; U0002

== ENCOUNTER 2020-10-31 06:15 | Emergency (ER) | payer SELFPAY ==
[2020-10-31] MEDS ORDERED: Magnesium 2 GM/50 ML BAG (IN WATER) ONE (06:41)
[2020-10-31] MEDS ORDERED: methylPREDNISolone Sod Succ/PF 125 MG/2 ML VIAL ONE (06:41)
[2020-10-31 06:50] LABS: #Basophils 0.2 thou/uL (0.0-0.2); #Eosinphils 1.4 thou/uL (0.0-0.7); #Lymphocytes 3.6 thou/uL (1.20-3.40); #Monocytes 0.9 thou/uL (0.11-0.59); #Neutrophils 10.4 thou/uL (1.40-6.50); %Basophils 1.1 % (0.0-1.0); %Eosinophils 8.5 % (0.0-10.0); %Monocytes 5.5 % (0.0-10.0); Hemoglobin 14.8 g/dL (12.0-16.0); Mean Corpuscular HGB CONC 31.4 g/dL (32.0-36.0); Mean Corpuscular Volume 98.7 fL (78.0-98.0); Mean Platelet Volume 8.5 fL (7.4-10.4); Platelet Count 294 thou/uL (130-400); RBC Distribution Width 12.1 % (11.5-14.5); Red Blood Cell (RBC) Count 4.77 mill/uL (4.20-5.40); White Blood Cell (WBC) Count 16.5 thou/uL (4.8-10.8)
[2020-10-31 07:13] LABS: ALT (SGPT) 12 U/L (8-55); AST (SGOT) 26 U/L (5-34); Albumin 4.3 g/dL (3.4-4.8); Alkaline Phosphatase 74 U/L (40-110); Anion Gap 15 mmol/L (10-20); BUN (Urea Nitrogen) 9 mg/dL (9.8-20.1); Bilirubin, Total 0.3 mg/dL (0.2-1.2); Calc. Creatinine Clearance 0 mL/min (70-130); Calcium 9.2 mg/dL (7.8-10.44); Carbon Dioxide 26 mmol/L (23-31); Chloride 109 mmol/L (98-107); Globulin 3.6 g/dL (2.4-3.5); Glucose 106 mg/dL (80-115); Potassium 3.5 mmol/L (3.5-5.1); Protein, Total 7.9 g/dL (6.0-8.3); Sodium 146 mmol/L (136-145)
--- NOTE | 2020-10-31 07:44 | RAD ---
Chest one view HISTORY: Dyspnea. Follow-up. COMPARISON: 09/24/2020. FINDINGS: Cardiac silhouette and pulmonary vasculature are unremarkable. Mediastinum is midline with aortic calcification, allowing for S-shaped curvature of the thoracic spine. Lungs remain well-inflated. No lobar consolidation or evidence of pneumothorax. IMPRESSION : No acute abnormalities demonstrated.
[2020-10-31] MEDS ORDERED: Albuterol Sulfate 2.5 mg/0.5 ml Neb ONE ×2 (08:12→08:17)
== END 2020-10-31 10:29 | disposition home or self-care (01) ==
LOC: ERS 06:15
DX: J44.1 Chronic obstructive pulmonary disease with (acute) exacerbation (principal); F17.210 Nicotine dependence, cigarettes, uncomplicated
CPT/HCPCS: 71045; 80053; 83880; 84484; 85025; 93005; 96365; 96375; J2930; J3475; J7611; J7620

== ENCOUNTER 2020-11-13 14:24 | Observation (INO) | payer SELFPAY ==
[2020-11-13] MEDS ORDERED: Lorazepam 1 MG TAB ONE (15:14)
[2020-11-13] MEDS ORDERED: methylPREDNISolone Sod Succ/PF 125 MG/2 ML VIAL ONE (15:15)
[2020-11-13] MEDS ORDERED: Magnesium 2 GM/50 ML BAG (IN WATER) ONE (15:15)
[2020-11-13 15:25] LABS: #Basophils 0.1 thou/uL (0.0-0.2); #Lymphocytes 3.5 thou/uL (1.20-3.40); #Monocytes 0.9 thou/uL (0.11-0.59); #Neutrophils 8.5 thou/uL (1.40-6.50); %Basophils 0.8 % (0.0-1.0); %Eosinophils 6.9 % (0.0-10.0); %Monocytes 6.7 % (0.0-10.0); %Neutrophils 60.7 % (42.0-75.0); Hemoglobin 14.9 g/dL (12.0-16.0); Mean Corpuscular HGB CONC 32.4 g/dL (32.0-36.0); Mean Corpuscular Hemoglobin 31.7 pg (27.0-31.0); Mean Platelet Volume 8.4 fL (7.4-10.4); Platelet Count 357 thou/uL (130-400); RBC Distribution Width 12.2 % (11.5-14.5)
[2020-11-13] MEDS ORDERED: Albuterol 200 PUFF (6.7GM INHALER) ONE (15:25)
--- NOTE | 2020-11-13 15:26 | RAD ---
EXAM: CHEST ONE VIEW PORTABLE: 11/13/20 HISTORY: Dyspnea, shortness of breath, moderate respiratory distress. COMPARISON: 10/31/20. FINDINGS: Monitor leads overlie the chest. Heart size is normal. No confluent pneumonia, overt edema, or pleura l effusion. Minimal right apical pleural thickening. No confluent pneumonia, overt edema, or pleural effusion. IMPRESSION: Minimal pleural thickening, more so on the right apex region. No significant acute intrathoracic dise ase. POS: RRE
[2020-11-13 15:45] LABS: ALT (SGPT) 12 U/L (8-55); AST (SGOT) 17 U/L (5-34); Albumin 4.5 g/dL (3.4-4.8); Alkaline Phosphatase 74 U/L (40-110); Anion Gap 15 mmol/L (10-20); BUN (Urea Nitrogen) 12 mg/dL (9.8-20.1); Bilirubin, Total 0.4 mg/dL (0.2-1.2); Calc. Creatinine Clearance 0 mL/min (70-130); Calcium 9.6 mg/dL (7.8-10.44); Carbon Dioxide 24 mmol/L (23-31); Chloride 108 mmol/L (98-107); Globulin 3.2 g/dL (2.4-3.5); Glucose 119 mg/dL (80-115); Protein, Total 7.7 g/dL (6.0-8.3); Sodium 143 mmol/L (136-145)
[2020-11-13] MEDS ORDERED: Lorazepam 0.5 MG TAB PO PRN (21:40)
--- NOTE | 2020-11-13 21:43 | PDOC.HHP ---
Hospitalist HPI - History of Present Illness Shortness of breath History of Present Illness: This is a 65-year-old female patient with a history of COPD, who presents with worsening shortness of breath. At baseline patient uses up to 3 L of oxygen at home as needed. She notes with worsening shortness of breath cough and wheezing. Earlier today she took a breathing treatment and her medications however no improvement was noted. Decided to come to the ED for further evaluation. Of note she was last discharged on 09/25/2020 after having been managed for COPD exacerbation. She denied any associated fever chills headache diarrhea constipation. At presentation blood pressure was 156/97, pulse 124, respiratory rate 34, temperature 98.2 and saturating 85% on room air. Labs showed mild leukocytosis of 14.0, no bands. CMP was essentially within normal limits. Chest x-ray showed minimal pleural thickening more on the right apex region with no significant acute intrathoracic process. She was started on duo nebs, 1 L normal saline, magnesium sulfate and lorazepam for anxiety. Hospitalist team consulted for admission. Hospitalist ROS - Review of Systems Constitutional: denies: fever, chills, sweats, weakness Eyes: denies: pain, vision change Respiratory: reports: cough, shortness of breath, SOB with excertion Cardiovascular: denies: chest pain, palpitations, orthopnea, paroxysmal noc. dyspnea Gastrointestinal: denies: nausea, vomiting, abdominal pain, diarrhea Genitourinary: denies: dysuria Neurological: denies: weakness, numbness, change in speech All other systems reviewed; all pertinent +/- noted in HPI/Subj - Medication Medications: Medications: Currently refer to ambulatory list. Allergies: No known drug allergies Hospitalist History - Past Medical History Pulmonary: reports: COPD - Past Surgical History Other Surgical History: Appendectomy, tubal ligation - Family History Family History: reports: no pertinent history - Social History Smoking Status: Current every day smoker Alcohol: reports: None Living Situation: With Family - Exam General Appearance: awake alert General - other findings: In respiratory distress, tearful ENT: normocephalic atraumatic Neck: supple, symmetric Heart: RRR, no murmur, no gallops Respiratory - other findings: Generalized wheezing. Gastrointestinal: soft, non-tender, non-distended, normal bowel sounds Extremities: no cyanosis, no clubbing, no edema Neurological: cranial nerve grossly intact, no weakness, no focal deficits Psychiatric: normal behavior, A&O x 3, flat affect Hospitalist Results - Labs Result Diagrams: 11/13/20 14:53 11/13/20 14:53 Lab results: WBC 14.0 thou/uL (4.8-10.8) H 11/13/20 14:53 Hgb 14.9 g/dL (12.0-16.0) 11/13/20 14:53 Hct 46.1 % (36.0-47.0) 11/13/20 14:53 MCV 98.0 fL (78.0-98.0) 11/13/20 14:53 Plt Count 357 thou/uL (130-400) 11/13/20 14:53 Neutrophils % 60.7 % (42.0-75.0) 11/13/20 14:53 Sodium 143 mmol/L (136-145) 11/13/20 14:53 Potassium 4.0 mmol/L (3.5-5.1) 11/13/20 14:53 Chloride 108 mmol/L (98-107) H 11/13/20 14:53 Carbon Dioxide 24 mmol/L (23-31) 11/13/20 14:53 BUN 12 mg/dL (9.8-20.1) 11/13/20 14:53 Creatinine 0.77 mg/dL (0.6-1.1) 11/13/20 14:53 Glucose 119 mg/dL (80-115) H 11/13/20 14:53 Calcium 9.6 mg/dL (7.8-10.44) 11/13/20 14:53 Total Bilirubin 0.4 mg/dL (0.2-1.2) 11/13/20 14:53 AST 17 U/L (5-34) 11/13/20 14:53 ALT 12 U/L (8-55) 11/13/20 14:53 Alkaline Phosphatase 74 U/L (40-110) 11/13/20 14:53 Troponin I Less than 0.010 ng/mL (< 0.028) 11/13/20 14:53 Serum Total Protein 7.7 g/dL (6.0-8.3) 11/13/20 14:53 Albumin 4.5 g/dL (3.4-4.8) 11/13/20 14:53 Hospitalist H&P A/P - Plan Plan: This is a 65-year-old female patient history of COPD who presents today with worsening shortness of breath cough suggestive of COPD exacerbation. COPD exacerbation Apparently still an ongoing smoker Given steroidswe will continue Start antibiotics DuoNebs as needed/scheduled Oxygen therapy as needed. Anxiety. Patient generally anxious and tearful As needed Ativan Consider starting antidepressant VT prophylaxisLovenox CODE STATUSfull code
[2020-11-13 22:01] VITALS: BMI 19.3
[2020-11-13] MEDS ORDERED: cefTRIAXone\\ROCEPHIN 1 GM VIAL ONE (22:23)
[2020-11-13 22:39] VITALS: BP 123/83; TEMP 98.6
[2020-11-13] MEDS ORDERED: cefTRIAXone\\ROCEPHIN 1 GM in Sodium Chloride 0.9% 100 ML IVPB SCH (23:00)
[2020-11-13] MEDS ORDERED: Lorazepam 0.5 MG TAB ONE (23:50)
[2020-11-14] MEDS ORDERED: FLU VACC QS2020-21(65YR UP)/PF 240 MCG/0.7 ML SYRINGE IM ONE (09:00)
[2020-11-14] MEDS ORDERED: Enoxaparin Sodium 40 MG/0.4 ML SYRINGE SC SCH (09:00)
[2020-11-14] MEDS ORDERED: methylPREDNISolone Sod Succ 40 MG VIAL IVP SCH (09:00)
--- NOTE | 2020-11-14 19:32 | PDOC.DS.DS ---
Provider - Provider Date of Admission: 11/13/20 21:24 Date of Discharge: 11/14/19 Admitting Provider: Jared Foley MD Primary Care Physician: NO PCP PROVIDER Course - Hospital Course Hospital Course: Patient presented with shortness of breath am and was being managed as COPD exacerbation. Patient later decided the she was not comfortable so she left AMA Resuscitation Status: 11/13/20 21:31 Resuscitation Status Routine Resuscitation Status: FULL: Full Resuscitation - Labs Lab Results: 11/13/20 14:53 11/13/20 14:53 Abnormal Lab Results - Last 48 hrs 11/13/20 14:53: Chloride 108 H 11/13/20 14:53: WBC 14.0 H, MCH 31.7 H, Neutrophils # 8.5 H, Lymphocytes # 3.5 H, Monocytes # 0.9 H, Eosinophils # 1.0 H 11/13/20 20:50: D-Dimer 0.61 H - Physical Exam Vitals: Weight Weight 99 lb 3.328 oz Physical Exam: The patient was seen and examined on the day of discharge. Plan - Discharge Medications Prescriptions: Cefdinir [Omnicef] 300 mg PO BID #10 cap predniSONE [Prednisone] 40 mg PO DAILY #16 tablet Lactobacillus Combo No.10 [Probiotic] 1 capsule PO DAILY #4 capsule Home Medications: Medication Instructions Recorded Confirmed Type Ipratropium/Albuterol Sulfate 2 puff INH PRN PRN 09/21/20 09/21/20 History [DuoNeb] Tiotropium [place] [Spiriva] 1 puff INH BID 09/21/20 09/21/20 History Famotidine [Pepcid] 20 mg PO BID #14 tab 09/25/20 Rx Levofloxacin [Levaquin] 500 mg PO DAILY #6 tablet 09/25/20 Rx predniSONE 40 mg PO QAM-WM #4 tab 09/25/20 Rx Cefdinir [Omnicef] 300 mg PO BID #10 cap 11/14/20 Rx Lactobacillus Combo No.10 1 capsule PO DAILY #4 capsule 11/14/20 Rx [Probiotic] predniSONE [Prednisone] 40 mg PO DAILY #16 tablet 11/14/20 Rx Allergies: No Known Allergies Allergy (Verified 09/21/20 14:53) - Follow up Plan Referrals: PROVIDER,NO PCP [Primary Care Provider] - Disposition: LEFT AGAINST MEDICAL ADVICE Quality - Care Measures CORE MEASURES:: N/A
[2020-11-15 08:44] LABS: SARS-CoV-2 PCR by NAA Not Detected (NotDetected)
--- NOTE | 2020-12-01 22:16 | EKG ---
Test Reason : Blood Pressure : / mmHG Vent. Rate : 122 BPM Atrial Rate : 122 BPM P-R Int : 144 ms QRS Dur : 066 ms QT Int : 320 ms P-R-T Axes : 084 027 073 degrees QTc Int : 456 ms Sinus tachycardia Right atrial enlargement Septal infarct , age undetermined Abnormal ECG Confirmed by JIMBO RUBIN DO ([id number]), commissioning editor CINDY MÁRQUEZ ([id number]) on 12/01/2020 10:16:21 PM Referred By: Confirmed By:JIMBO RUBIN DO
== END 2020-11-14 02:00 | disposition left against medical advice (07) ==
LOC: ERS 14:24 → ERHOLD 21:24 → SJJU 11-14 02:25 → ERHOLD 11-14 03:00
PROVIDERS: ADMIT Student in an Organized Health Care Education/Training Program; ATTEND Internal Medicine
DX: J44.1 Chronic obstructive pulmonary disease with (acute) exacerbation (principal); F41.9 Anxiety disorder, unspecified; F17.200 Nicotine dependence, unspecified, uncomplicated; Z53.29 Procedure and treatment not carried out because of patient's decision for other reasons; Z20.822 Contact with and (suspected) exposure to COVID-19
CPT/HCPCS: 36415; 71045; 80053; 84484; 85025; 85379; 87635; 93005; 94640; 96365; 96367; 96375; G0378; J0696; J2930; J3475; J3490; J7620; U0003; U0005

== ENCOUNTER 2020-12-03 17:24 | Inpatient (IN) | payer SELFPAY ==
[2020-12-03] MEDS ORDERED: Lorazepam 2 MG/ML VIAL ONE (17:29)
[2020-12-03] MEDS ORDERED: Magnesium 2 GM/50 ML BAG (IN WATER) ONE (17:32)
[2020-12-03] MEDS ORDERED: cefTRIAXone\\ROCEPHIN 1 GM VIAL ONE (17:32)
[2020-12-03] MEDS ORDERED: methylPREDNISolone Sod Succ/PF 125 MG/2 ML VIAL ONE (17:32)
[2020-12-03] MEDS ORDERED: Nitroglycerin 2% Ointment 1 INCH/1 GM Packet ONE (17:40)
[2020-12-03 17:53] LABS: #Basophils 0.1 thou/uL (0.0-0.2); #Eosinphils 0.5 thou/uL (0.0-0.7); #Neutrophils 8.8 thou/uL (1.40-6.50); %Basophils 0.5 % (0.0-1.0); %Eosinophils 3.3 % (0.0-10.0); %Lymphocytes 32.4 % (21.0-51.0); %Monocytes 6.6 % (0.0-10.0); %Neutrophils 57.1 % (42.0-75.0); Hemoglobin 13.8 g/dL (12.0-16.0); Mean Corpuscular HGB CONC 30.9 g/dL (32.0-36.0); Mean Corpuscular Hemoglobin 30.1 pg (27.0-31.0); Mean Corpuscular Volume 97.3 fL (78.0-98.0); Mean Platelet Volume 8.2 fL (7.4-10.4); Platelet Count 353 thou/uL (130-400); RBC Distribution Width 12.4 % (11.5-14.5); Red Blood Cell (RBC) Count 4.58 mill/uL (4.20-5.40); White Blood Cell (WBC) Count 15.4 thou/uL (4.8-10.8)
[2020-12-03 18:01] LABS: Actual Bicarbonate (HCO3a) 20.8 mEq/L (22-28); Analyzer IN Cardio ER; Base Excess (BEa) -6.8 mEq/L (-2.0 to +3.0); CO2 Tension 50.2 mmHg (35.0-45.0); Calcium, Ionized (arterial) 1.22 mmol/L (1.12-1.30); Carboxyhemoglobin (COHb) 1.1 gm% (0.0-3.0); O2 Tension (PaO2), arterial 89.8 mmHg (> 80.0); Potassium - ABG Lab 3.35 mmol/L (3.70-5.30)
[2020-12-03 18:04] LABS: pH, Arterial 7.24 (7.35-7.45)
[2020-12-03 18:05] LABS: Puncture Site RRA
[2020-12-03 18:35] LABS: ALT (SGPT) 8 U/L (8-55); AST (SGOT) 17 U/L (5-34); Albumin 4.4 g/dL (3.4-4.8); Alkaline Phosphatase 67 U/L (40-110); Anion Gap 20 mmol/L (10-20); BUN (Urea Nitrogen) 11 mg/dL (9.8-20.1); Bilirubin, Total 0.3 mg/dL (0.2-1.2); Calc. Creatinine Clearance 0 mL/min (70-130); Calcium 10.1 mg/dL (7.8-10.44); Carbon Dioxide 22 mmol/L (23-31); Chloride 107 mmol/L (98-107); Globulin 3.3 g/dL (2.4-3.5); Glucose 151 mg/dL (80-115); Lipase 9 U/L (8-78); Magnesium 2.2 mg/dL (1.6-2.6); Potassium 4.6 mmol/L (3.5-5.1); Protein, Total 7.7 g/dL (5.8-8.1); Sodium 144 mmol/L (136-145)
[2020-12-03] MEDS ORDERED: Azithromycin 500 MG VIAL ONE (19:19)
[2020-12-03 19:37] LABS: SARS-CoV-2 NAA Rapid Test Not Detected (NotDetected)
[2020-12-03 19:42] LABS: Bilirubin Negative (Negative); Blood, Urine Negative (Negative); Clarity Clear (Clear); Glucose, Urine (Dipstick) Normal (Negative); Ketone, Urine Negative (Negative); Leukocyte Negative Leu/uL (Negative); Nitrite Negative (Negative); Protein, Urine (Dipstick) 10 mg/dL (Neg-Trace); Specific Gravity, Urine 1.009 (1.002-1.036); Urobilinogen Normal mg/dL (Less than 2)
[2020-12-03] MEDS ORDERED: GUAIFENESIN SF SOLN 200 MG/10 ML UDCUP PO PRN (20:28)
[2020-12-03] MEDS ORDERED: hydrALAZINE 20 MG/ML VIAL SLOW IVP PRN (20:28)
[2020-12-03] MEDS ORDERED: Acetaminophen 325 MG TAB PO PRN (20:28)
[2020-12-03] MEDS ORDERED: Bisacodyl 5 MG TAB PO PRN (20:29)
[2020-12-03] MEDS ORDERED: Ondansetron PF 4 MG/2 ML Vial IVP PRN (20:29)
[2020-12-03] MEDS ORDERED: Albuterol Sulfate 2.5 mg/3 ml Neb NEB PRN (20:29)
[2020-12-03] MEDS ORDERED: Zolpidem Tartrate 5 MG TAB PO PRN (20:29)
[2020-12-03] MEDS ORDERED: Sodium Chloride 0.9% 1,000 ML IV SCH (20:30)
[2020-12-03] MEDS ORDERED: ALPRAZolam 1 MG TAB PO PRN (20:32)
[2020-12-03 22:05] LABS: Lactic Acid 1.3 mmol/L (0.5-2.2)
[2020-12-03 22:59] VITALS: BMI 19.7
[2020-12-03] MEDS: Famotidine 20 MG TAB PO SCH (23:11)
[2020-12-04] MEDS: Acetylcysteine 20% 200 MG/ML 30 ML VIAL INH SCH ×4 (00:24→18:23)
[2020-12-04] MEDS: methylPREDNISolone Sod Succ/PF 125 MG/2 ML VIAL IVP SCH ×2 (02:53→05:17)
[2020-12-04] MEDS: guaiFENesin ER 600 MG TAB PO SCH ×3 (02:54→21:45)
[2020-12-04 05:47] LABS: #Lymphocytes 0.5 thou/uL (1.20-3.40); #Monocytes 0.1 thou/uL (0.11-0.59); #Neutrophils 4.6 thou/uL (1.40-6.50); %Basophils 0.1 % (0.0-1.0); %Eosinophils 0.1 % (0.0-10.0); %Lymphocytes 10.2 % (21.0-51.0); %Monocytes 0.9 % (0.0-10.0); %Neutrophils 88.7 % (42.0-75.0); Hemoglobin 11.9 g/dL (12.0-16.0); Mean Corpuscular HGB CONC 32.5 g/dL (32.0-36.0); Mean Corpuscular Hemoglobin 31.7 pg (27.0-31.0); Mean Corpuscular Volume 97.3 fL (78.0-98.0); Mean Platelet Volume 7.8 fL (7.4-10.4); Platelet Count 243 thou/uL (130-400); RBC Distribution Width 12.3 % (11.5-14.5); Red Blood Cell (RBC) Count 3.76 mill/uL (4.20-5.40); White Blood Cell (WBC) Count 5.1 thou/uL (4.8-10.8)
[2020-12-04 05:52] LABS: Anion Gap 15 mmol/L (10-20); BUN (Urea Nitrogen) 11 mg/dL (9.8-20.1); Calc. Creatinine Clearance 59 mL/min (70-130); Calcium 8.2 mg/dL (7.8-10.44); Carbon Dioxide 19 mmol/L (23-31); Chloride 113 mmol/L (98-107); Glucose 137 mg/dL (80-115); Potassium 3.7 mmol/L (3.5-5.1); Sodium 143 mmol/L (136-145)
[2020-12-04] MEDS: Enoxaparin Sodium 40 MG/0.4 ML SYRINGE SC SCH (09:33)
[2020-12-04] MEDS: Famotidine 20 MG TAB PO SCH ×2 (09:33→21:45)
[2020-12-04] MEDS: Zinc Sulfate 220 MG CAP PO SCH (09:33)
[2020-12-04] MEDS: methylPREDNISolone Sod Succ 40 MG VIAL IVP SCH ×2 (13:25→17:56)
[2020-12-04] MEDS: Mometasone 200 MCG/Formoterol 5 MCG 120 PUFF INHALER INH SCH (18:24)
[2020-12-05] MEDS: Acetylcysteine 20% 200 MG/ML 30 ML VIAL INH SCH ×2 (02:11→07:13)
[2020-12-05 04:55] LABS: #Lymphocytes 0.8 thou/uL (1.20-3.40); #Monocytes 0.5 thou/uL (0.11-0.59); #Neutrophils 12.6 thou/uL (1.40-6.50); %Lymphocytes 5.7 % (21.0-51.0); %Monocytes 3.7 % (0.0-10.0); %Neutrophils 90.5 % (42.0-75.0); Hemoglobin 10.6 g/dL (12.0-16.0); Mean Corpuscular HGB CONC 32.4 g/dL (32.0-36.0); Mean Corpuscular Hemoglobin 31.2 pg (27.0-31.0); Mean Corpuscular Volume 96.2 fL (78.0-98.0); Mean Platelet Volume 8.1 fL (7.4-10.4); Platelet Count 253 thou/uL (130-400); RBC Distribution Width 12.4 % (11.5-14.5); White Blood Cell (WBC) Count 13.9 thou/uL (4.8-10.8)
[2020-12-05] MEDS: methylPREDNISolone Sod Succ 40 MG VIAL IVP SCH ×2 (05:19→05:34)
[2020-12-05 05:24] LABS: ALT (SGPT) 10 U/L (8-55); AST (SGOT) 15 U/L (5-34); Albumin 3.4 g/dL (3.4-4.8); Alkaline Phosphatase 49 U/L (40-110); Anion Gap 13 mmol/L (10-20); BUN (Urea Nitrogen) 16 mg/dL (9.8-20.1); Bilirubin, Total 0.2 mg/dL (0.2-1.2); Calc. Creatinine Clearance 57 mL/min (70-130); Calcium 8.5 mg/dL (7.8-10.44); Carbon Dioxide 20 mmol/L (23-31); Chloride 113 mmol/L (98-107); Globulin 2.2 g/dL (2.4-3.5); Glucose 140 mg/dL (80-115); Potassium 4.2 mmol/L (3.5-5.1); Protein, Total 5.6 g/dL (5.8-8.1); Sodium 142 mmol/L (136-145)
[2020-12-05] MEDS: Mometasone 200 MCG/Formoterol 5 MCG 120 PUFF INHALER INH SCH (07:13)
[2020-12-05 08:53] VITALS: BP 130/77; TEMP 98.3
[2020-12-05] MEDS: guaiFENesin ER 600 MG TAB PO SCH (09:38)
[2020-12-05] MEDS: Famotidine 20 MG TAB PO SCH (09:38)
[2020-12-05] MEDS: Enoxaparin Sodium 40 MG/0.4 ML SYRINGE SC SCH (09:38)
[2020-12-05] MEDS: Zinc Sulfate 220 MG CAP PO SCH (09:39)
[2020-12-05] MEDS ORDERED: predniSONE 20 MG TAB PO SCH (10:00)
== END 2020-12-05 11:10 | disposition left against medical advice (07) | DRG 191 ==
LOC: ERS 17:24 → 2SW 20:23
PROVIDERS: ADMIT Internal Medicine; ATTEND Student in an Organized Health Care Education/Training Program
PROC: 5A09357 Assistance with Respiratory Ventilation, Less than 24 Consecutive Hours, Continuous Positive Airway Pressure (ICD-10-PCS; principal; 2020-12-03)
DX: J44.1 Chronic obstructive pulmonary disease with (acute) exacerbation (principal); J96.11 Chronic respiratory failure with hypoxia; I10 Essential (primary) hypertension; F41.9 Anxiety disorder, unspecified; Z20.822 Contact with and (suspected) exposure to COVID-19; J40 Bronchitis, not specified as acute or chronic; Z53.29 Procedure and treatment not carried out because of patient's decision for other reasons; Z90.49 Acquired absence of other specified parts of digestive tract; Z98.51 Tubal ligation status; Z87.891 Personal history of nicotine dependence; Z79.51 Long term (current) use of inhaled steroids; Z79.2 Long term (current) use of antibiotics; Z91.14 Patient's other noncompliance with medication regimen
CPT/HCPCS: 0240U; 36415; 36600; 51701; 71045; 80048; 80053; 81003; 82805; 83605; 83690; 83735; 84443; 84484; 85025; 85379; 87040; 87086; 90471; 90732; 93005; 94640; 96365; 96367; 96375; G0009; J0132; J0456; J0696; J1956; J2060; J2920; J2930; J3475; J7620

== ENCOUNTER 2020-12-13 00:38 | Observation (INO) | payer SELFPAY ==
[2020-12-13 01:11] LABS: #Basophils 0.1 thou/uL (0.0-0.2); #Eosinphils 1.4 thou/uL (0.0-0.7); #Lymphocytes 4.9 thou/uL (1.20-3.40); #Monocytes 1.6 thou/uL (0.11-0.59); %Basophils 1.1 % (0.0-1.0); %Eosinophils 11.7 % (0.0-10.0); %Lymphocytes 40.8 % (21.0-51.0); %Neutrophils 33.4 % (42.0-75.0); Hemoglobin 14.7 g/dL (12.0-16.0); Mean Corpuscular HGB CONC 31.6 g/dL (32.0-36.0); Mean Corpuscular Hemoglobin 30.5 pg (27.0-31.0); Mean Corpuscular Volume 96.3 fL (78.0-98.0); Mean Platelet Volume 9.3 fL (7.4-10.4); Platelet Count 322 thou/uL (130-400); RBC Distribution Width 12.7 % (11.5-14.5); Red Blood Cell (RBC) Count 4.83 mill/uL (4.20-5.40); White Blood Cell (WBC) Count 11.9 thou/uL (4.8-10.8)
[2020-12-13] MEDS ORDERED: methylPREDNISolone Sod Succ/PF 125 MG/2 ML VIAL ONE (01:18)
[2020-12-13 01:32] LABS: ALT (SGPT) 13 U/L (8-55); AST (SGOT) 17 U/L (5-34); Albumin 4.4 g/dL (3.4-4.8); Alkaline Phosphatase 64 U/L (40-110); Anion Gap 13 mmol/L (10-20); BUN (Urea Nitrogen) 12 mg/dL (9.8-20.1); Bilirubin, Total 0.3 mg/dL (0.2-1.2); Calc. Creatinine Clearance 0 mL/min (70-130); Calcium 9.9 mg/dL (7.8-10.44); Carbon Dioxide 28 mmol/L (23-31); Chloride 106 mmol/L (98-107); Globulin 2.9 g/dL (2.4-3.5); Glucose 92 mg/dL (80-115); Potassium 4.1 mmol/L (3.5-5.1); Protein, Total 7.3 g/dL (5.8-8.1); Sodium 143 mmol/L (136-145)
[2020-12-13 01:59] LABS: CKMB 13.1 ng/mL (0-6.6)
[2020-12-13] MEDS ORDERED: Aspirin Chewable 81 MG TAB ONE (02:00)
[2020-12-13] MEDS ORDERED: Albuterol Sulfate 2.5 mg/3 ml Neb ONE ×2 (02:39)
[2020-12-13] MEDS ORDERED: Albuterol Sulfate 2.5 mg/0.5 ml Neb ONE (02:40)
--- NOTE | 2020-12-13 04:05 | PDOC.HHP ---
Hospitalist HPI Dyspnea History of Present Illness: This is a 65-year-old female patient with a history of COPD who presents with worsening shortness of breath. Of note patient was discharged about 2 weeks ago after she was managed for COPD exacerbation with hypoxia and hypercapnia. On her previous discharge summary it was noted that she discharged home AGAINST MEDICAL ADVICE. She notes having woken up this morning with cough and shortness of breath she took 2 DuoNeb's which had no effect thus came to the ED for further evaluation. At presentation BP 102/66 pulse 104, respirate 20 temperature 98.8 saturating 90% on 4 L. Her labs showed WBC of 11.9 and elevated troponin at 0.03. Chemistry was otherwise generally normal. Covid test was negative. Chest x-ray showed hyperinflated lungs without any infiltration. She received albuterol inhalation Solu-Medrol 125 mg and duo nebs. She noticed she felt so much better. Hospitalist team was consulted for admission. Allergies/Adverse Reactions: Allergy/AdvReac Type Severity Reaction Status Date / Time No Known Allergies Allergy Verified 12/03/20 22:46 Home Medications: Medication Instructions Recorded Confirmed Type Tiotropium [place] [Spiriva] 1 puff INH BID 09/21/20 12/03/20 History Ipratropium/Albuterol Sulfate 3 ml INH Q4H 12/03/20 12/03/20 History [DuoNeb] Famotidine [Pepcid] 20 mg PO BID #60 tab 12/05/20 Rx Mometasone/Formoterol 200/5 2 puff INH BID-RT #30 inh 12/05/20 Rx [Dulera 200 Mcg/5 Mcg Inhaler] Zinc Sulfate 220 mg PO DAILY #60 cap 12/05/20 Rx predniSONE 20 mg PO ONE #5 tab 12/05/20 Rx Past History: PMHx: PSHx: FHx: Social: Hospitalist HPI ROS Constitutional: reports: malaise. denies: fever, chills, sweats, weakness Respiratory: reports: cough, shortness of breath, SOB with excertion. denies: hemoptysis Cardiovascular: denies: chest pain, palpitations, orthopnea, paroxysmal noc. dyspnea Gastrointestinal: denies: nausea, vomiting, abdominal pain, diarrhea, constipation Musculoskeletal: denies: neck pain, shoulder pain Neurological: denies: weakness, numbness, incoordination, change in speech All other systems reviewed; all pertinent +/- noted in HPI/Subj Hospitalist Exam General Appearance: awake alert General - other findings: In no acute distress. Eye: PERRL, anicteric sclera ENT: normocephalic atraumatic Heart: RRR, no murmur, no gallops, no rubs Respiratory - other findings: Reduced air entry bilaterally, occasional wheezing Gastrointestinal: soft, non-tender, non-distended, normal bowel sounds Extremities: no cyanosis, no clubbing, no edema Neurological: cranial nerve grossly intact, no focal deficits Psychiatric: normal affect, normal behavior, A&O x 3 Hospitalist Results Result Diagrams: 12/13/20 00:59 12/13/20 00:59 Lab results: Laboratory Last Values WBC 11.9 thou/uL (4.8-10.8) H 12/13/20 00:59 RBC 4.83 mill/uL (4.20-5.40) 12/13/20 00:59 Hgb 14.7 g/dL (12.0-16.0) 12/13/20 00:59 Hct 46.5 % (36.0-47.0) 12/13/20 00:59 MCV 96.3 fL (78.0-98.0) 12/13/20 00:59 MCH 30.5 pg (27.0-31.0) 18 00:59 MCHC 31.6 g/dL (32.0-36.0) L 12/13/20 00:59 RDW 12.7 % (11.5-14.5) 12/13/20 00:59 Plt Count 322 thou/uL (130-400) 12/13/20 00:59 MPV 9.3 fL (7.4-10.4) 12/13/20 00:59 Neutrophils % 33.4 % (42.0-75.0) L 12/13/20 00:59 Lymphocytes % 40.8 % (21.0-51.0) 12/13/20 00:59 Monocytes % 13.0 % (0.0-10.0) H 12/13/20 00:59 Eosinophils % 11.7 % (0.0-10.0) H 12/13/20 00:59 Basophils % 1.1 % (0.0-1.0) H 12/13/20 00:59 Neutrophils # 4.0 thou/uL (1.40-6.50) 12/13/20 00:59 Lymphocytes # 4.9 thou/uL (1.20-3.40) H 12/13/20 00:59 Monocytes # 1.6 thou/uL (0.11-0.59) H 12/13/20 00:59 Eosinophils # 1.4 thou/uL (0.0-0.7) H 12/13/20 00:59 Basophils # 0.1 thou/uL (0.0-0.2) 12/13/20 00:59 Sodium 143 mmol/L (136-145) 12/13/20 00:59 Potassium 4.1 mmol/L (3.5-5.1) 12/13/20 00:59 Chloride 106 mmol/L (98-107) 12/13/20 00:59 Carbon Dioxide 28 mmol/L (23-31) 12/13/20 00:59 Anion Gap 13 mmol/L (10-20) 12/13/20 00:59 BUN 12 mg/dL (9.8-20.1) 12/13/20 00:59 Creatinine 0.84 mg/dL (0.6-1.1) 12/13/20 00:59 Estimated GFR (MDRD) 68 12/13/20 00:59 Glucose 92 mg/dL (80-115) 12/13/20 00:59 Calcium 9.9 mg/dL (7.8-10.44) 12/13/20 00:59 Total Bilirubin 0.3 mg/dL (0.2-1.2) 12/13/20 00:59 AST 17 U/L (5-34) 12/13/20 00:59 ALT 13 U/L (8-55) 12/13/20 00:59 Alkaline Phosphatase 64 U/L (40-110) 12/13/20 00:59 CK-MB (CK-2) 13.1 ng/mL (0-6.6) H* 12/13/20 00:59 Troponin I 0.036 ng/mL (< 0.028) H 12/13/20 00:59 Serum Total Protein 7.3 g/dL (5.8-8.1) 12/13/20 00:59 Albumin 4.4 g/dL (3.4-4.8) 12/13/20 00:59 Globulin 2.9 g/dL (2.4-3.5) 12/13/20 00:59 Albumin/Globulin Ratio 1.5 g/dL (1.2-2.2) 12/13/20 00:59 Hospitalist H&P A/P Plan: 65-year-old female patient with a history of COPD and recurrent admissions presents again for her shortness of breath consistent with COPD exacerbation. COPD exacerbation Likely due to ongoing smoking Duo nebs/Solu-Medrol Monitor closely Pulmonology consult if indicated. Elevated troponin Troponin 0 0.036 Likely due to hypoxia from COPD exacerbation We will trend VT prophylaxis Lovenox
[2020-12-13 04:58] LABS: SARS-CoV-2 NAA Rapid Test Not Detected (NotDetected)
[2020-12-13 05:15] LABS: Troponin I 0.024 ng/mL (< 0.028)
[2020-12-13] MEDS ORDERED: Azithromycin 500 MG VIAL ONE (05:37)
[2020-12-13] MEDS: Azithromycin 500 MG in Sodium Chloride 0.9% 250 ML 250 ML IVPB SCH (05:42)
--- NOTE | 2020-12-13 07:40 | RAD ---
PORTABLE CHEST: DATE: 12/13/2020. PROVIDED CLINICAL HISTORY: None. FINDINGS: Comparison 12/03/2020. Cardiac and mediastinal silhouette is within normal limits. No focal consolida tion, pleural fluid, or pneumothorax apparent. IMPRESSION: No evidence for an acute cardiopulmonary process. POS: NIKKO
[2020-12-13 07:49] LABS: Troponin I 0.023 ng/mL (< 0.028)
[2020-12-13] MEDS ORDERED: Enoxaparin Sodium 40 MG/0.4 ML SYRINGE ONE (08:57)
[2020-12-13] MEDS ORDERED: methylPREDNISolone Sod Succ 40 MG VIAL ONE (08:57)
[2020-12-13] MEDS: methylPREDNISolone Sod Succ 40 MG VIAL IVP SCH (09:04)
[2020-12-13 09:55] LABS: Troponin I 0.024 ng/mL (< 0.028)
[2020-12-13] MEDS: Enoxaparin Sodium 40 MG/0.4 ML SYRINGE SC SCH (10:53)
[2020-12-13 12:05] LABS: Troponin I 0.018 ng/mL (< 0.028)
[2020-12-13 15:34] LABS: Troponin I 0.017 ng/mL (< 0.028)
--- NOTE | 2020-12-13 17:54 | PDOC.BPN ---
- Brief Progress Note Encounter Date: 12/13/20 Patient seen by me in the ER. She was having chest pain upon ambulation. Negative sets of troponins. EKG was without ischemic changes. There is a 2D echo pending. She is officially admitted with COPD exacerbation and is doing well with nebulizer therapy and standard care. I will continue to monitor. For detailed history please refer to H&P done today.
[2020-12-13 20:20] VITALS: BMI 18.8
[2020-12-14] MEDS: Azithromycin 500 MG in Sodium Chloride 0.9% 250 ML 250 ML IVPB SCH (06:55)
[2020-12-14] MEDS: Enoxaparin Sodium 40 MG/0.4 ML SYRINGE SC SCH (07:46)
[2020-12-14] MEDS: methylPREDNISolone Sod Succ 40 MG VIAL IVP SCH ×2 (07:46→10:38)
--- NOTE | 2020-12-14 18:18 | PDOC.HOSPP ---
- Subjective Encounter Date: 12/14/20 Subjective: Patient was slightly upset today because she was not getting her nebulizer treatment every 4 hours. Threatened to leave AMA eventually agreed to stay. - Objective Vital Signs & Weight: Vital Signs (12 hours) Temp Pulse Resp BP Pulse Ox 12/14/20 15:07 98.2 F 97 16 128/83 96 12/14/20 14:21 86 18 95 12/14/20 11:01 99 F 94 18 134/67 99 12/14/20 07:28 98.3 F 98 20 157/70 H 98 Weight Admit Weight 99 lb 14.4 oz Weight 99 lb 14.4 oz I&O: 12/13/20 12/14/20 12/15/20 06:59 06:59 06:59 Intake Total 240 650 Balance 240 650 Result Diagrams: 12/13/20 00:59 12/13/20 00:59 Hospitalist ROS - Medication Medications: Active Medications Generic Name Dose Route Start Last Admin Trade Name Freq PRN Reason Stop Dose Admin Albuterol/Ipratropium 3 ml 12/13/20 03:56 12/14/20 10:46 Ipratropium/Albuterol Sulfate 3 Ml Neb NEB 3 ml [id number] PRN Administration SOB &/or Wheezing Albuterol/Ipratropium 3 ml 12/13/20 07:00 12/14/20 14:21 Ipratropium/Albuterol Sulfate 3 Ml Neb NEB 3 ml [id number] IND[place] Administration Enoxaparin Sodium 40 mg 12/13/20 09:00 12/14/20 07:46 Enoxaparin Sodium 40 Mg/0.4 Ml Syringe SC Not Given 0900 INDIA Azithromycin 500 mg/ Sodium 250 mls @ 250 mls/hr 12/13/20 04:00 12/14/20 06:55 Chloride IVPB 250 mls Q24HR [place] Administration Methylprednisolone Sodium Succinate 40 mg 12/13/20 09:00 12/14/20 10:38 Methylprednisolone Sod Succ 40 Mg Vial IVP 40 mg DAILY IND[place] Administration Hospitalist Exam Vitals: Vital Signs (12 hours) Temp Pulse Resp BP Pulse Ox 12/14/20 15:07 98.2 F 97 16 128/83 96 12/14/20 14:21 86 18 95 12/14/20 11:01 99 F 94 18 134/67 99 12/14/20 07:28 98.3 F 98 20 157/70 H 98 Weight Admit Weight 99 lb 14.4 oz Weight 99 lb 14.4 oz General - other findings: Upset, cachectic Eye: anicteric sclera ENT: normocephalic atraumatic Heart: RRR, no murmur, no gallops, no rubs Respiratory: no wheezes, no ronchi Extremities: no clubbing, no edema Neurological: cranial nerve grossly intact Musculoskeletal: normal tone, normal strength Hosp A/P (1) Acute respiratory failure with hypoxia Code(s): J96.01 - ACUTE RESPIRATORY FAILURE WITH HYPOXIA Status: Acute (2) COPD exacerbation Code(s): J44.1 - CHRONIC OBSTRUCTIVE PULMONARY DISEASE W (ACUTE) EXACERBATION Status: Acute (3) Sepsis Code(s): A41.9 - SEPSIS, UNSPECIFIED ORGANISM Status: Acute (4) Smoker Code(s): F17.200 - NICOTINE DEPENDENCE, UNSPECIFIED, UNCOMPLICATED Status: Acute - Plan Assessment Patient is a 65-year-old female with a known past medical history of chronic respiratory failure, COPD on 2 L of oxygen via nasal cannula at home. She presented to the hospital with shortness of breath and was admitted with a working diagnosis of COPD exacerbation. She has done well on systemic corticosteroids, antibiotics and nebulizer therapy. Her hospital course was complicated by episodes of chest pain on ambulation. EKG was negative for is chemic signs. ACS was ruled out. There is a 2D echo that was done, results are still pending. Currently doing well. On baseline oxygen requirement. Acute on chronic respiratory failure COPD exacerbation Chest pain Plan: Continue current regimen with nebulizer, systemic corticosteroids and anti biotics Follow-up 2D echo Anticipate patient to be discharged tomorrow Continue DVT prophylaxis
[2020-12-15] MEDS: Azithromycin 500 MG in Sodium Chloride 0.9% 250 ML 250 ML IVPB SCH (04:35)
--- NOTE | 2020-12-15 09:05 | EKG ---
Test Reason : Blood Pressure : / mmHG Vent. Rate : 106 BPM Atrial Rate : 106 BPM P-R Int : 136 ms QRS Dur : 066 ms QT Int : 348 ms P-R-T Axes : 088 019 068 degrees QTc Int : 462 ms Sinus tachycardia Right atrial enlargement Anteroseptal infarct , age undetermined Abnormal ECG Confirmed by BRANDON GANN, DR. Espinoza ([id number]) on 12/15/2020 9:04:55 AM Referred By: BENITO Confirmed By:DR. Olga TAYLOR MD
[2020-12-15] MEDS: Enoxaparin Sodium 40 MG/0.4 ML SYRINGE SC SCH (09:27)
[2020-12-15] MEDS: methylPREDNISolone Sod Succ 40 MG VIAL IVP SCH (09:27)
[2020-12-15 09:48] VITALS: BP 189/89; TEMP 98.6
--- NOTE | 2020-12-15 10:01 | PDOC.DS.DS ---
Provider Date of Admission: 12/13/20 03:14 Date of Discharge: 12/15/20 Admitting Provider: Jared Foley MD Primary Care Physician: Lizzie Gilbert NP Course Hospital Course: 65-year-old woman with a history of COPD presented to the emergency department with a complaint of shortness of breath and wheezing. Patient was recently hospitalized 2 weeks ago where she was treated for COPD exacerbation with hypercapnia. Patient presents again to the emergency department with a complaint of progressive shortness of breath which did not respond to her nebulizers at home. Patient was noted to be wheezing in the ED. Chest x-ray showed hyperinflated lungs without any infiltrate. Patient was not septic. She was started on IV Solu-Medrol given DuoNeb and admitted for further management. Patient admitted to the medical floor and treated for COPD exacerbation with IV Solu-Medrol, scheduled DuoNeb and IV Zithromax. Patient clinically improved with treatment. Today patient patient's states he feels much better, not wheezing. She feels she has improved to baseline. She is tolerating her baseline 2 L of oxygen by nasal cannula. She has been ambulatory with no issues. Her troponin was mildly elevated but trended flat and no suspicion for ACS. She is deemed clinically stable for discharge. Patient is prescribed a short course of oral prednisone to continue treatment for COPD exacerbation. She will continue to use her DuoNeb as scheduled at home. Lab Results: 12/13/20 00:59 12/13/20 00:59 Vitals: Vital Signs (12 hours) Temp Pulse Resp BP BP Pulse Ox 12/15/20 08:18 82 22 H 92 L 12/15/20 08:00 98.6 F 100 24 H 189/89 H 100 12/15/20 04:00 98.2 F 82 22 H 93/53 L 95 12/15/20 02:37 93 L 12/15/20 00:10 93 L 12/15/20 00:00 79 20 Weight Admit Weight 99 lb 14.4 oz Weight 99 lb 1.6 oz Physical Exam: The patient was seen and examined on the day of discharge. General Appearance: NAD, awake alert Eye: PERRL, anicteric sclera Neck: no JVD Respiratory: CTAB, no wheezes, no rales, no ronchi Cardiovascular: RRR, no murmur Gastrointestinal: soft, non-tender, non-distended, normal bowel sounds Extremities: no cyanosis, no edema Skin: normal turgor, no rashes Neurological: no weakness, no focal deficits Musculoskeletal: normal strength PSYCH: normal affect, normal behavior, A&O x 3 Problem (1) Acute respiratory failure with hypoxia Code(s): J96.01 - ACUTE RESPIRATORY FAILURE WITH HYPOXIA Status: Acute (2) COPD exacerbation Code(s): J44.1 - CHRONIC OBSTRUCTIVE PULMONARY DISEASE W (ACUTE) EXACERBATION Status: Acute Time Spent in discharge related activities (mins): 35 Plan Prescriptions: predniSONE [Prednisone] 40 mg PO DAILY #20 tablet Azithromycin [Zithromax] 500 mg PO DAILY #3 tablet Home Medications: Medication Instructions Recorded Confirmed Type Tiotropium Butler [Spiriva] 1 puff INH DAILY 09/21/20 12/13/20 History Ipratropium/Albuterol Sulfate 3 ml INH Q4H 12/03/20 12/13/20 History [DuoNeb] Azithromycin [Zithromax] 500 mg PO DAILY #3 tablet 12/15/20 Rx predniSONE [Prednisone] 40 mg PO DAILY #20 tablet 12/15/20 Rx Allergies: No Known Allergies Allergy (Verified 12/13/20 20:00) Activity:: Activity as Tolerated Nourishment:: Heart Healthy Diet Referrals: Lizzie Gilbert NP [Primary Care Provider] - 10 Days (Please follow up with your primary care provider in 10 days.) Disposition: HOME Quality CORE MEASURES:: N/A
--- NOTE | 2020-12-15 15:18 | EKG ---
Test Reason : SOB Blood Pressure : / mmHG Vent. Rate : 125 BPM Atrial Rate : 125 BPM P-R Int : 124 ms QRS Dur : 078 ms QT Int : 314 ms P-R-T Axes : 092 019 050 degrees QTc Int : 453 ms Sinus tachycardia Right atrial enlargement Septal infarct , age undetermined Abnormal ECG Confirmed by MADI DAVIS M.D. ([id number]), staff editor CINDY MÁRQUEZ ([id number]) on 12/15/2020 3:17:36 PM Referred By: Confirmed By:MADI DAVIS M.D.
== END 2020-12-15 11:08 | disposition home or self-care (01) ==
LOC: ERS 00:38 → ERHOLD 03:14 → INTOOBSV 03:14 → 2NO 18:44
PROVIDERS: ADMIT Student in an Organized Health Care Education/Training Program; ATTEND Internal Medicine
DX: J44.1 Chronic obstructive pulmonary disease with (acute) exacerbation (principal); J96.21 Acute and chronic respiratory failure with hypoxia; R77.8 Other specified abnormalities of plasma proteins; R07.9 Chest pain, unspecified; F41.9 Anxiety disorder, unspecified; F17.210 Nicotine dependence, cigarettes, uncomplicated; Z79.899 Other long term (current) drug therapy; Z99.81 Dependence on supplemental oxygen; Z20.822 Contact with and (suspected) exposure to COVID-19
CPT/HCPCS: 36415; 71045; 80053; 82553; 84484; 85025; 93005; 93010; 93306; 96374; J0456; J1650; J2920; J2930; J7050; J7611; J7620; U0002

== ENCOUNTER 2020-12-17 03:34 | Emergency (ER) | payer SELFPAY ==
[2020-12-17] MEDS ORDERED: Lorazepam 2 MG/ML VIAL ONE (03:57)
[2020-12-17] MEDS ORDERED: Magnesium 2 GM/50 ML BAG (IN WATER) ONE (03:58)
[2020-12-17] MEDS ORDERED: methylPREDNISolone Sod Succ/PF 125 MG/2 ML VIAL ONE (03:58)
[2020-12-17 04:09] LABS: #Basophils 0.2 thou/uL (0.0-0.2); #Eosinphils 0.6 thou/uL (0.0-0.7); #Lymphocytes 4.7 thou/uL (1.20-3.40); #Monocytes 0.9 thou/uL (0.11-0.59); #Neutrophils 7.6 thou/uL (1.40-6.50); %Basophils 1.3 % (0.0-1.0); %Eosinophils 4.1 % (0.0-10.0); %Lymphocytes 33.8 % (21.0-51.0); %Monocytes 6.6 % (0.0-10.0); %Neutrophils 54.2 % (42.0-75.0); Mean Corpuscular HGB CONC 32.4 g/dL (32.0-36.0); Mean Corpuscular Hemoglobin 30.8 pg (27.0-31.0); Mean Corpuscular Volume 95.1 fL (78.0-98.0); Mean Platelet Volume 8.3 fL (7.4-10.4); Platelet Count 372 thou/uL (130-400); RBC Distribution Width 12.9 % (11.5-14.5); Red Blood Cell (RBC) Count 4.55 mill/uL (4.20-5.40)
[2020-12-17 04:32] LABS: ALT (SGPT) 11 U/L (8-55); AST (SGOT) 16 U/L (5-34); Albumin 4.2 g/dL (3.4-4.8); Alkaline Phosphatase 66 U/L (40-110); Anion Gap 15 mmol/L (10-20); BUN (Urea Nitrogen) 12 mg/dL (9.8-20.1); Bilirubin, Total 0.3 mg/dL (0.2-1.2); Calc. Creatinine Clearance 0 mL/min (70-130); Calcium 9.1 mg/dL (7.8-10.44); Carbon Dioxide 22 mmol/L (23-31); Chloride 109 mmol/L (98-107); Globulin 2.9 g/dL (2.4-3.5); Glucose 108 mg/dL (80-115); Potassium 4.1 mmol/L (3.5-5.1); Protein, Total 7.1 g/dL (5.8-8.1); Sodium 142 mmol/L (136-145)
[2020-12-17] MEDS ORDERED: Albuterol Sulfate 2.5 mg/3 ml Neb ONE (05:00)
--- NOTE | 2020-12-17 08:15 | RAD ---
CHEST 1 VIEW: COMPARISON: 12/13/2020. HISTORY: Dyspnea. FINDINGS: Atherosclerosis of the aorta. Normal cardiac silhouette. The pulmonary vessels and hilum are normal . Costophrenic angles are clear. Hyperinflation, without consolidation or mass. No pneumothorax or acute osseous abnormalities. IMPRESSION: 1. Atherosclerosis. 2. No acute cardiopulmonary process. Lungs are hyperinflated. Chronic obstructive pulmonary diseas e. POS: PPP
== END 2020-12-17 05:07 | disposition home or self-care (01) ==
LOC: ERS 03:34
DX: J44.1 Chronic obstructive pulmonary disease with (acute) exacerbation (principal); F17.210 Nicotine dependence, cigarettes, uncomplicated
CPT/HCPCS: 71045; 80053; 83880; 84484; 85025; 93005; 94640; 96365; 96375; J2060; J2930; J3475; J7611; J7620

== ENCOUNTER 2020-12-26 20:59 | Emergency (ER) | payer SELFPAY ==
--- NOTE | 2020-12-26 21:25 | RAD ---
XR Chest 1 View Portable HISTORY: Shortness of breath, chest pain, COPD exacerbation COMPARISON: 12/17/2020 FINDINGS: The heart size is normal. The lungs are well expanded with changes of COPD and no focal are as of consolidation, pneumothorax or pleural effusions. IMPRESSION: No radiographic evidence of acute cardiopulmonary process.
[2020-12-26] MEDS ORDERED: Lorazepam 1 MG TAB ONE (21:26)
[2020-12-26] MEDS ORDERED: Dexamethasone 10 MG/ML VIAL ONE (21:26)
[2020-12-26 21:51] LABS: #Basophils 0.1 thou/uL (0.0-0.2); #Lymphocytes 3.2 thou/uL (1.20-3.40); #Monocytes 1.3 thou/uL (0.11-0.59); #Neutrophils 10.2 thou/uL (1.40-6.50); %Basophils 0.4 % (0.0-1.0); %Eosinophils 6.2 % (0.0-10.0); %Lymphocytes 20.4 % (21.0-51.0); Hemoglobin 12.6 g/dL (12.0-16.0); Mean Corpuscular Hemoglobin 30.9 pg (27.0-31.0); Mean Corpuscular Volume 96.6 fL (78.0-98.0); Mean Platelet Volume 7.9 fL (7.4-10.4); Platelet Count 291 thou/uL (130-400); RBC Distribution Width 13.3 % (11.5-14.5); Red Blood Cell (RBC) Count 4.07 mill/uL (4.20-5.40); White Blood Cell (WBC) Count 15.7 thou/uL (4.8-10.8)
[2020-12-26 22:08] LABS: ALT (SGPT) 9 U/L (8-55); AST (SGOT) 13 U/L (5-34); Alkaline Phosphatase 67 U/L (40-110); Anion Gap 14 mmol/L (10-20); BUN (Urea Nitrogen) 10 mg/dL (9.8-20.1); Bilirubin, Total 0.4 mg/dL (0.2-1.2); Calc. Creatinine Clearance 0 mL/min (70-130); Calcium 9.1 mg/dL (7.8-10.44); Carbon Dioxide 24 mmol/L (23-31); Chloride 110 mmol/L (98-107); Globulin 2.7 g/dL (2.4-3.5); Glucose 102 mg/dL (80-115); Potassium 3.7 mmol/L (3.5-5.1); Protein, Total 6.7 g/dL (5.8-8.1); Sodium 144 mmol/L (136-145)
--- NOTE | 2020-12-29 10:31 | EKG ---
Test Reason : Blood Pressure : / mmHG Vent. Rate : 109 BPM Atrial Rate : 109 BPM P-R Int : 142 ms QRS Dur : 078 ms QT Int : 320 ms P-R-T Axes : 084 -06 067 degrees QTc Int : 430 ms Sinus tachycardia Biatrial enlargement Anteroseptal infarct , age undetermined Abnormal ECG Confirmed by AQUILES GANN, JOBY Alfred ([id number]), editor index CINDY MÁRQUEZ ([id number]) on 12/29/2020 10:30:59 AM Referred By: Confirmed By:JOBY KWAN MD
== END 2020-12-26 22:34 | disposition home or self-care (01) ==
LOC: ERS 20:59
DX: J44.1 Chronic obstructive pulmonary disease with (acute) exacerbation (principal); F41.9 Anxiety disorder, unspecified; F17.210 Nicotine dependence, cigarettes, uncomplicated; Z79.51 Long term (current) use of inhaled steroids
CPT/HCPCS: 36415; 71045; 80053; 83880; 84484; 85025; 93005; 94640; J1100; J7620

== ENCOUNTER 2021-01-03 10:06 | Emergency (ER) | payer SELFPAY ==
[2021-01-03] MEDS ORDERED: Albuterol Sulfate 2.5 mg/0.5 ml Neb ONE ×2 (10:40)
[2021-01-03] MEDS ORDERED: methylPREDNISolone Sod Succ/PF 125 MG/2 ML VIAL ONE (10:44)
[2021-01-03] MEDS ORDERED: Lorazepam 2 MG/ML VIAL ONE ×2 (10:57→14:17)
[2021-01-03 11:08] LABS: #Basophils 0.1 thou/uL (0.0-0.2); #Lymphocytes 2.5 thou/uL (1.20-3.40); #Monocytes 0.7 thou/uL (0.11-0.59); #Neutrophils 5.6 thou/uL (1.40-6.50); %Basophils 0.8 % (0.0-1.0); %Eosinophils 9.8 % (0.0-10.0); %Lymphocytes 25.4 % (21.0-51.0); %Monocytes 7.4 % (0.0-10.0); %Neutrophils 56.6 % (42.0-75.0); Hemoglobin 14.1 g/dL (12.0-16.0); Mean Corpuscular HGB CONC 32.9 g/dL (32.0-36.0); Mean Corpuscular Hemoglobin 31.5 pg (27.0-31.0); Mean Corpuscular Volume 95.8 fL (78.0-98.0); Mean Platelet Volume 7.7 fL (7.4-10.4); Platelet Count 338 thou/uL (130-400); RBC Distribution Width 13.1 % (11.5-14.5); Red Blood Cell (RBC) Count 4.47 mill/uL (4.20-5.40); White Blood Cell (WBC) Count 9.8 thou/uL (4.8-10.8)
[2021-01-03 11:28] LABS: ALT (SGPT) 11 U/L (8-55); AST (SGOT) 17 U/L (5-34); Albumin 4.2 g/dL (3.4-4.8); Alkaline Phosphatase 68 U/L (40-110); Anion Gap 13 mmol/L (10-20); BUN (Urea Nitrogen) 16 mg/dL (9.8-20.1); Bilirubin, Total 0.4 mg/dL (0.2-1.2); Calc. Creatinine Clearance 0 mL/min (70-130); Calcium 9.8 mg/dL (7.8-10.44); Carbon Dioxide 28 mmol/L (23-31); Chloride 105 mmol/L (98-107); Globulin 3.1 g/dL (2.4-3.5); Glucose 101 mg/dL (80-115); Potassium 4.9 mmol/L (3.5-5.1); Protein, Total 7.3 g/dL (5.8-8.1); Sodium 141 mmol/L (136-145)
== END 2021-01-03 15:55 | disposition home or self-care (01) ==
LOC: ERS 10:06
DX: J44.1 Chronic obstructive pulmonary disease with (acute) exacerbation (principal); R00.0 Tachycardia, unspecified; F17.210 Nicotine dependence, cigarettes, uncomplicated; Z79.899 Other long term (current) drug therapy
CPT/HCPCS: 71045; 71275; 80053; 84484; 85025; 85379; 93005; 94644; 96374; 96375; 96376; J2060; J2930; J7611; J7620

== ENCOUNTER 2021-01-06 07:17 | Inpatient (IN) | payer SELFPAY ==
[2021-01-06] MEDS ORDERED: Azithromycin 500 MG VIAL ONE (07:46)
[2021-01-06] MEDS ORDERED: methylPREDNISolone Sod Succ/PF 125 MG/2 ML VIAL ONE (07:46)
[2021-01-06] MEDS ORDERED: Magnesium 2 GM/50 ML BAG (IN WATER) ONE (07:46)
[2021-01-06] MEDS ORDERED: Albuterol 200 PUFF (6.7GM INHALER) ONE (07:56)
[2021-01-06 08:16] LABS: #Eosinphils 0.1 thou/uL (0.0-0.7); #Lymphocytes 4.5 thou/uL (1.20-3.40); #Monocytes 1.7 thou/uL (0.11-0.59); #Neutrophils 11.6 thou/uL (1.40-6.50); %Basophils 0.2 % (0.0-1.0); %Eosinophils 0.7 % (0.0-10.0); %Lymphocytes 24.8 % (21.0-51.0); %Monocytes 9.7 % (0.0-10.0); %Neutrophils 64.6 % (42.0-75.0); Hemoglobin 13.1 g/dL (12.0-16.0); Mean Corpuscular HGB CONC 31.8 g/dL (32.0-36.0); Mean Corpuscular Hemoglobin 30.5 pg (27.0-31.0); Mean Corpuscular Volume 96.1 fL (78.0-98.0); Mean Platelet Volume 8.3 fL (7.4-10.4); Platelet Count 382 thou/uL (130-400); RBC Distribution Width 13.5 % (11.5-14.5); Red Blood Cell (RBC) Count 4.28 mill/uL (4.20-5.40)
[2021-01-06 08:35] LABS: ALT (SGPT) 14 U/L (8-55); AST (SGOT) 13 U/L (5-34); Alkaline Phosphatase 67 U/L (40-110); Anion Gap 14 mmol/L (10-20); BUN (Urea Nitrogen) 27 mg/dL (9.8-20.1); Bilirubin, Total 0.2 mg/dL (0.2-1.2); Calc. Creatinine Clearance 0 mL/min (70-130); Calcium 9.3 mg/dL (7.8-10.44); Carbon Dioxide 23 mmol/L (23-31); Chloride 109 mmol/L (98-107); Globulin 2.8 g/dL (2.4-3.5); Glucose 101 mg/dL (80-115); Magnesium 2.2 mg/dL (1.6-2.6); Potassium 3.9 mmol/L (3.5-5.1); Protein, Total 6.8 g/dL (5.8-8.1); Sodium 142 mmol/L (136-145)
[2021-01-06 08:43] LABS: Actual Bicarbonate (HCO3a) 18.9 mEq/L (22-28); Analyzer IN Cardio ER; Base Excess (BEa) -7.2 mEq/L (-2.0 to +3.0); CO2 Tension 40.3 mmHg (35.0-45.0); Calcium, Ionized (arterial) 1.18 mmol/L (1.12-1.30); Carboxyhemoglobin (COHb) 0.7 gm% (0.0-3.0); Hemoglobin (Hb) 12.7 g/dL (12.0-16.0); O2 Tension (PaO2), arterial 145.8 mmHg (> 80.0); Potassium - ABG Lab 3.65 mmol/L (3.70-5.30); pH, Arterial 7.29 (7.35-7.45)
[2021-01-06 08:47] LABS: Puncture Site LRA
[2021-01-06 08:48] LABS: ALV-art Gradient 17.725 mmHg (0-20)
[2021-01-06 08:55] LABS: CKMB 5.5 ng/mL (0-6.6)
[2021-01-06 09:00] LABS: SARS-CoV-2 NAA Rapid Test Not Detected (NotDetected)
[2021-01-06] MEDS ORDERED: Aspirin Chewable 81 MG TAB ONE (09:11)
[2021-01-06] MEDS ORDERED: Acetaminophen 325 MG TAB PO PRN (09:42)
[2021-01-06] MEDS ORDERED: Ondansetron PF 4 MG/2 ML Vial IVP PRN (09:42)
[2021-01-06] MEDS ORDERED: HYDROcodone/Acetaminophen 5/325 mg Tablet PO PRN (09:42)
[2021-01-06] MEDS ORDERED: Senokot S 8.6-50 MG TAB PO PRN (09:42)
[2021-01-06] MEDS ORDERED: Lorazepam 2 MG/ML VIAL SLOW IVP PRN (09:44)
[2021-01-06] MEDS ORDERED: Albuterol Sulfate 2.5 mg/3 ml Neb NEB PRN (10:25)
[2021-01-06 10:43] VITALS: BMI 21.2
[2021-01-06] MEDS: methylPREDNISolone Sod Succ/PF 125 MG/2 ML VIAL IVP SCH ×3 (12:26→23:37)
[2021-01-06 12:31] LABS: Troponin I 0.038 ng/mL (< 0.028)
[2021-01-06 14:37] LABS: Troponin I 0.032 ng/mL (< 0.028)
[2021-01-06] MEDS: Lorazepam 2 MG/ML VIAL SLOW IVP PRN ×2 (14:52→20:33)
[2021-01-06] MEDS: guaiFENesin ER 600 MG TAB PO SCH (20:12)
[2021-01-06] MEDS: Famotidine/PF 20 mg/2ml Vial SLOW IVP SCH (20:12)
[2021-01-06] MEDS: Cefepime 1 GM in Sodium Chloride 0.9% 100 ML IVPB SCH (20:17)
[2021-01-07 03:52] LABS: #Eosinphils 0.1 thou/uL (0.0-0.7); #Lymphocytes 0.9 thou/uL (1.20-3.40); #Monocytes 0.2 thou/uL (0.11-0.59); %Basophils 0.3 % (0.0-1.0); %Eosinophils 0.6 % (0.0-10.0); %Monocytes 1.2 % (0.0-10.0); %Neutrophils 90.9 % (42.0-75.0); Hemoglobin 12.3 g/dL (12.0-16.0); Mean Corpuscular HGB CONC 32.5 g/dL (32.0-36.0); Mean Corpuscular Hemoglobin 31.3 pg (27.0-31.0); Mean Corpuscular Volume 96.2 fL (78.0-98.0); Mean Platelet Volume 8.1 fL (7.4-10.4); Platelet Count 352 thou/uL (130-400); RBC Distribution Width 13.4 % (11.5-14.5); Red Blood Cell (RBC) Count 3.93 mill/uL (4.20-5.40); White Blood Cell (WBC) Count 12.1 thou/uL (4.8-10.8)
[2021-01-07 04:11] LABS: Anion Gap 14 mmol/L (10-20); BUN (Urea Nitrogen) 23 mg/dL (9.8-20.1); Calc. Creatinine Clearance 60 mL/min (70-130); Calcium 8.3 mg/dL (7.8-10.44); Carbon Dioxide 20 mmol/L (23-31); Chloride 109 mmol/L (98-107); Glucose 133 mg/dL (80-115); Sodium 139 mmol/L (136-145)
[2021-01-07] MEDS: methylPREDNISolone Sod Succ/PF 125 MG/2 ML VIAL IVP SCH ×2 (05:43→12:12)
[2021-01-07] MEDS: guaiFENesin ER 600 MG TAB PO SCH (08:50)
[2021-01-07] MEDS: Cefepime 1 GM in Sodium Chloride 0.9% 100 ML IVPB SCH (08:51)
[2021-01-07] MEDS: Famotidine/PF 20 mg/2ml Vial SLOW IVP SCH (08:51)
[2021-01-07] MEDS: Enoxaparin Sodium 40 MG/0.4 ML SYRINGE SC SCH ×2 (08:51→08:56)
[2021-01-07 10:07] VITALS: BP 142/85
[2021-01-07 11:21] VITALS: TEMP 98.2
[2021-01-07] MEDS: Lorazepam 2 MG/ML VIAL SLOW IVP PRN (14:34)
== END 2021-01-07 15:00 | disposition home or self-care (01) | DRG 189 ==
LOC: ERS 07:17 → IMCU/EMU 09:09
PROVIDERS: ADMIT Family Medicine; ATTEND Family Medicine
PROC: 5A09357 Assistance with Respiratory Ventilation, Less than 24 Consecutive Hours, Continuous Positive Airway Pressure (ICD-10-PCS; principal; 2021-01-06)
DX: J96.01 Acute respiratory failure with hypoxia (principal); J44.1 Chronic obstructive pulmonary disease with (acute) exacerbation; I24.8 Other forms of acute ischemic heart disease; F17.210 Nicotine dependence, cigarettes, uncomplicated; F41.9 Anxiety disorder, unspecified; Z79.52 Long term (current) use of systemic steroids; Z98.51 Tubal ligation status; Z90.49 Acquired absence of other specified parts of digestive tract
CPT/HCPCS: 0240U; 36415; 36600; 71045; 80048; 80053; 82553; 82805; 83605; 83735; 83880; 84484; 85025; 87040; 87070; 87205; 93005; 94640; 94660; J0456; J0692; J1650; J2060; J2930; J3475; J3490; J7611; J7620; S0028

== ENCOUNTER 2021-01-17 07:01 | Emergency (ER) | payer SELFPAY ==
[2021-01-17] MEDS ORDERED: methylPREDNISolone Sod Succ/PF 125 MG/2 ML VIAL ONE (07:42)
[2021-01-17 07:47] LABS: #Basophils 0.1 thou/uL (0.0-0.2); #Eosinphils 0.3 thou/uL (0.0-0.7); #Lymphocytes 1.6 thou/uL (1.20-3.40); #Monocytes 1.2 thou/uL (0.11-0.59); #Neutrophils 11.4 thou/uL (1.40-6.50); %Basophils 0.5 % (0.0-1.0); %Monocytes 8.2 % (0.0-10.0); %Neutrophils 78.3 % (42.0-75.0); Hemoglobin 12.7 g/dL (12.0-16.0); Mean Corpuscular HGB CONC 32.5 g/dL (32.0-36.0); Mean Corpuscular Hemoglobin 31.1 pg (27.0-31.0); Mean Corpuscular Volume 95.8 fL (78.0-98.0); Mean Platelet Volume 7.5 fL (7.4-10.4); Platelet Count 269 thou/uL (130-400); RBC Distribution Width 13.8 % (11.5-14.5); Red Blood Cell (RBC) Count 4.08 mill/uL (4.20-5.40); White Blood Cell (WBC) Count 14.6 thou/uL (4.8-10.8)
[2021-01-17] MEDS ORDERED: Albuterol 200 PUFF (6.7GM INHALER) ONE (07:48)
[2021-01-17 08:08] LABS: ALT (SGPT) 16 U/L (8-55); AST (SGOT) 13 U/L (5-34); Alkaline Phosphatase 61 U/L (40-110); Anion Gap 12 mmol/L (10-20); BUN (Urea Nitrogen) 15 mg/dL (9.8-20.1); Bilirubin, Total 0.3 mg/dL (0.2-1.2); Calc. Creatinine Clearance 0 mL/min (70-130); Calcium 9.6 mg/dL (7.8-10.44); Carbon Dioxide 27 mmol/L (23-31); Chloride 104 mmol/L (98-107); Globulin 2.8 g/dL (2.4-3.5); Glucose 112 mg/dL (80-115); Potassium 4.1 mmol/L (3.5-5.1); Protein, Total 6.8 g/dL (5.8-8.1); Sodium 139 mmol/L (136-145)
[2021-01-17] MEDS ORDERED: Magnesium 2 GM/50 ML BAG (IN WATER) ONE (09:01)
== END 2021-01-17 10:08 | disposition home or self-care (01) ==
LOC: ERS 07:01
DX: J44.1 Chronic obstructive pulmonary disease with (acute) exacerbation (principal); D72.829 Elevated white blood cell count, unspecified; F17.210 Nicotine dependence, cigarettes, uncomplicated
CPT/HCPCS: 36415; 71045; 80053; 84484; 85025; 93005; 94760; 96365; 96375; J2930; J3475

== ENCOUNTER 2021-02-19 11:18 | Emergency (ER) | payer SELFPAY ==
[2021-02-19] MEDS ORDERED: Azithromycin 250 MG TAB ONE (13:34)
[2021-02-19] MEDS ORDERED: methylPREDNISolone Sod Succ/PF 125 MG/2 ML VIAL ONE (13:34)
[2021-02-19] MEDS ORDERED: Magnesium 2 GM/50 ML BAG (IN WATER) ONE (13:34)
[2021-02-19] MEDS ORDERED: Albuterol Sulfate 2.5 mg/3 ml Neb ONE (14:08)
[2021-02-19] MEDS ORDERED: Albuterol Sulfate 2.5 mg/0.5 ml Neb ONE ×2 (14:08)
[2021-02-19 14:41] LABS: Carbon Dioxide 23 mmol/L (23-31); Chloride 109 mmol/L (98-107); Sodium 142 mmol/L (136-145); Troponin I 0.014 ng/mL (< 0.028)
[2021-02-19 14:42] LABS: ALT (SGPT) 10 U/L (8-55); AST (SGOT) 17 U/L (5-34); Alkaline Phosphatase 62 U/L (40-110); Anion Gap 13 mmol/L (10-20); BUN (Urea Nitrogen) 6 mg/dL (9.8-20.1); Bilirubin, Total 0.3 mg/dL (0.2-1.2); Calc. Creatinine Clearance 0 mL/min (70-130); Calcium 9.4 mg/dL (7.8-10.44); Globulin 2.8 g/dL (2.4-3.5); Glucose 92 mg/dL (80-115); Protein, Total 6.8 g/dL (5.8-8.1)
[2021-02-19 15:21] LABS: #Basophils 0.1 thou/uL (0.0-0.2); #Eosinphils 0.5 thou/uL (0.0-0.7); #Lymphocytes 2.6 thou/uL (1.20-3.40); #Monocytes 0.7 thou/uL (0.11-0.59); #Neutrophils 6.4 thou/uL (1.40-6.50); %Basophils 0.9 % (0.0-1.0); %Eosinophils 4.6 % (0.0-10.0); %Lymphocytes 25.5 % (21.0-51.0); %Neutrophils 61.9 % (42.0-75.0); Hemoglobin 12.8 g/dL (12.0-16.0); Mean Corpuscular Hemoglobin 31.3 pg (27.0-31.0); Mean Corpuscular Volume 94.9 fL (78.0-98.0); Mean Platelet Volume 7.6 fL (7.4-10.4); Platelet Count 378 thou/uL (130-400); RBC Distribution Width 13.6 % (11.5-14.5); Red Blood Cell (RBC) Count 4.08 mill/uL (4.20-5.40); White Blood Cell (WBC) Count 10.3 thou/uL (4.8-10.8)
== END 2021-02-19 16:31 | disposition home or self-care (01) ==
LOC: ERS 11:18
DX: J44.1 Chronic obstructive pulmonary disease with (acute) exacerbation (principal); F17.210 Nicotine dependence, cigarettes, uncomplicated
CPT/HCPCS: 71045; 80053; 84484; 85025; J2930; J3475; J7611; J7620

== ENCOUNTER 2021-04-13 12:08 | Emergency (ER) | payer SELFPAY ==
[2021-04-13 12:58] LABS: #Basophils 0.1 thou/uL (0.0-0.2); #Lymphocytes 2.4 thou/uL (1.20-3.40); #Monocytes 0.8 thou/uL (0.11-0.59); #Neutrophils 6.4 thou/uL (1.40-6.50); %Eosinophils 8.9 % (0.0-10.0); %Lymphocytes 22.4 % (21.0-51.0); %Monocytes 7.4 % (0.0-10.0); %Neutrophils 60.2 % (42.0-75.0); Hemoglobin 13.5 g/dL (12.0-16.0); Mean Corpuscular HGB CONC 33.1 g/dL (32.0-36.0); Mean Corpuscular Volume 96.7 fL (78.0-98.0); Mean Platelet Volume 8.1 fL (7.4-10.4); Platelet Count 282 thou/uL (130-400); RBC Distribution Width 13.4 % (11.5-14.5); Red Blood Cell (RBC) Count 4.23 mill/uL (4.20-5.40); White Blood Cell (WBC) Count 10.6 thou/uL (4.8-10.8)
[2021-04-13] MEDS ORDERED: predniSONE 20 MG TAB ONE (13:16)
[2021-04-13 13:18] LABS: ALT (SGPT) 11 U/L (8-55); AST (SGOT) 13 U/L (5-34); Albumin 4.1 g/dL (3.4-4.8); Alkaline Phosphatase 53 U/L (40-110); Anion Gap 14 mmol/L (10-20); BUN (Urea Nitrogen) 12 mg/dL (9.8-20.1); Bilirubin, Total 0.3 mg/dL (0.2-1.2); Calc. Creatinine Clearance 0 mL/min (70-130); Calcium 9.7 mg/dL (7.8-10.44); Carbon Dioxide 25 mmol/L (23-31); Chloride 108 mmol/L (98-107); Globulin 2.6 g/dL (2.4-3.5); Glucose 87 mg/dL (80-115); Magnesium 2.1 mg/dL (1.6-2.6); Potassium 4.1 mmol/L (3.5-5.1); Protein, Total 6.7 g/dL (5.8-8.1); Sodium 143 mmol/L (136-145)
[2021-04-13] MEDS ORDERED: Lorazepam 1 MG TAB ONE (14:18)
[2021-04-13] MEDS ORDERED: Aspirin Chewable 81 MG TAB ONE (14:57)
== END 2021-04-13 16:17 | disposition home or self-care (01) ==
LOC: ERS 12:08
DX: J44.1 Chronic obstructive pulmonary disease with (acute) exacerbation (principal); R00.0 Tachycardia, unspecified; Z87.891 Personal history of nicotine dependence; Z79.899 Other long term (current) drug therapy
CPT/HCPCS: 36415; 71045; 80053; 83735; 83880; 84484; 85025; 93005; 93010; J7512; J7620

== ENCOUNTER 2021-04-26 09:25 | Emergency (ER) | payer SELFPAY ==
[2021-04-26] MEDS ORDERED: methylPREDNISolone Sod Succ/PF 125 MG/2 ML VIAL ONE (09:45)
[2021-04-26] MEDS ORDERED: Lorazepam 1 MG TAB ONE (09:45)
[2021-04-26] MEDS ORDERED: Magnesium 2 GM/50 ML BAG (IN WATER) ONE (09:45)
[2021-04-26] MEDS ORDERED: Lorazepam 2 MG/ML VIAL ONE (09:47)
[2021-04-26 09:53] LABS: #Basophils 0.1 thou/uL (0.0-0.2); #Eosinphils 1.1 thou/uL (0.0-0.7); #Lymphocytes 3.5 thou/uL (1.20-3.40); #Monocytes 1.1 thou/uL (0.11-0.59); %Basophils 0.5 % (0.0-1.0); %Eosinophils 6.8 % (0.0-10.0); %Lymphocytes 22.1 % (21.0-51.0); %Monocytes 7.1 % (0.0-10.0); %Neutrophils 63.5 % (42.0-75.0); Hemoglobin 13.4 g/dL (12.0-16.0); Mean Corpuscular HGB CONC 33.2 g/dL (32.0-36.0); Mean Corpuscular Hemoglobin 31.7 pg (27.0-31.0); Mean Corpuscular Volume 95.4 fL (78.0-98.0); Mean Platelet Volume 8.3 fL (7.4-10.4); Platelet Count 320 thou/uL (130-400); RBC Distribution Width 13.4 % (11.5-14.5); Red Blood Cell (RBC) Count 4.23 mill/uL (4.20-5.40); White Blood Cell (WBC) Count 15.8 thou/uL (4.8-10.8)
[2021-04-26 10:13] LABS: ALT (SGPT) 10 U/L (8-55); AST (SGOT) 14 U/L (5-34); Albumin 4.1 g/dL (3.4-4.8); Alkaline Phosphatase 52 U/L (40-110); Anion Gap 17 mmol/L (10-20); BUN (Urea Nitrogen) 13 mg/dL (9.8-20.1); Bilirubin, Total 0.2 mg/dL (0.2-1.2); Calc. Creatinine Clearance 0 mL/min (70-130); Carbon Dioxide 22 mmol/L (23-31); Chloride 107 mmol/L (98-107); Globulin 2.7 g/dL (2.4-3.5); Glucose 103 mg/dL (80-115); Potassium 4.2 mmol/L (3.5-5.1); Protein, Total 6.8 g/dL (5.8-8.1); Sodium 142 mmol/L (136-145)
[2021-04-26] MEDS ORDERED: Albuterol Sulfate 2.5 mg/0.5 ml Neb ONE ×2 (10:13)
[2021-04-26] MEDS ORDERED: Azithromycin 500 MG VIAL ONE (10:44)
== END 2021-04-26 13:14 | disposition home or self-care (01) ==
LOC: ERS 09:25
DX: J44.1 Chronic obstructive pulmonary disease with (acute) exacerbation (principal); Z87.891 Personal history of nicotine dependence
CPT/HCPCS: 36415; 71045; 80053; 83605; 84484; 85025; 87040; 87149; 93005; 94640; 96365; 96367; 96375; J0456; J2060; J2930; J3475; J7611; J7620

== ENCOUNTER 2021-06-08 20:25 | Emergency (ER) | payer SELFPAY ==
[2021-06-08] MEDS ORDERED: methylPREDNISolone Sod Succ/PF 125 MG/2 ML VIAL ONE (21:39)
[2021-06-08 21:56] LABS: #Basophils 0.1 thou/uL (0.0-0.2); #Eosinphils 0.9 thou/uL (0.0-0.7); #Lymphocytes 1.9 thou/uL (1.20-3.40); #Monocytes 0.8 thou/uL (0.11-0.59); #Neutrophils 13.8 thou/uL (1.40-6.50); %Basophils 0.5 % (0.0-1.0); %Eosinophils 5.1 % (0.0-10.0); %Lymphocytes 10.6 % (21.0-51.0); %Monocytes 4.8 % (0.0-10.0); Hemoglobin 13.2 g/dL (12.0-16.0); Mean Corpuscular HGB CONC 32.7 g/dL (32.0-36.0); Mean Corpuscular Volume 94.9 fL (78.0-98.0); Mean Platelet Volume 8.1 fL (7.4-10.4); Platelet Count 355 thou/uL (130-400); RBC Distribution Width 13.7 % (11.5-14.5); Red Blood Cell (RBC) Count 4.24 mill/uL (4.20-5.40); White Blood Cell (WBC) Count 17.4 thou/uL (4.8-10.8)
[2021-06-08 22:20] LABS: ALT (SGPT) 13 U/L (8-55); AST (SGOT) 16 U/L (5-34); Albumin 4.2 g/dL (3.4-4.8); Alkaline Phosphatase 60 U/L (40-110); Anion Gap 13 mmol/L (10-20); BUN (Urea Nitrogen) 15 mg/dL (9.8-20.1); Bilirubin, Total 0.2 mg/dL (0.2-1.2); Calc. Creatinine Clearance 0 mL/min (70-130); Calcium 9.8 mg/dL (7.8-10.44); Carbon Dioxide 24 mmol/L (23-31); Chloride 108 mmol/L (98-107); Globulin 2.8 g/dL (2.4-3.5); Glucose 99 mg/dL (80-115); Potassium 3.5 mmol/L (3.5-5.1); Sodium 141 mmol/L (136-145)
== END 2021-06-08 23:30 | disposition home or self-care (01) ==
LOC: ERS 20:25
DX: J44.1 Chronic obstructive pulmonary disease with (acute) exacerbation (principal); Z87.891 Personal history of nicotine dependence; Z79.899 Other long term (current) drug therapy
CPT/HCPCS: 36415; 71045; 80053; 85025; 93005; 94640; 96374; J2930; J7620

== ENCOUNTER 2021-07-07 12:02 | Emergency (ER) | payer SELFPAY ==
[2021-07-07] MEDS ORDERED: Ipratropium Bromide 2.5 ml Neb ONE (12:24)
[2021-07-07] MEDS ORDERED: Albuterol Sulfate 2.5 mg/3 ml Neb ONE (12:24)
[2021-07-07] MEDS ORDERED: methylPREDNISolone Sod Succ/PF 125 MG/2 ML VIAL ONE (12:39)
[2021-07-07] MEDS ORDERED: Magnesium 2 GM/50 ML BAG (IN WATER) ONE (12:39)
[2021-07-07 12:53] LABS: Actual Bicarbonate (HCO3a) 20.4 mEq/L (22-28); Analyzer IN Cardio ER; Base Excess (BEa) -2.9 mEq/L (-2.0 to +3.0); CO2 Tension 31.2 mmHg (35.0-45.0); Calcium, Ionized (arterial) 1.21 mmol/L (1.12-1.30); Carboxyhemoglobin (COHb) 1.2 gm% (0.0-3.0); Hemoglobin (Hb) 13.1 g/dL (12.0-16.0); O2 Tension (PaO2), arterial 137.3 mmHg (> 80.0); Potassium - ABG Lab 3.83 mmol/L (3.70-5.30); pH, Arterial 7.43 (7.35-7.45)
[2021-07-07 12:54] LABS: #Basophils 0.1 thou/uL (0.0-0.2); #Eosinphils 1.3 thou/uL (0.0-0.7); #Lymphocytes 2.8 thou/uL (1.20-3.40); #Neutrophils 7.2 thou/uL (1.40-6.50); %Basophils 1.1 % (0.0-1.0); %Eosinophils 10.5 % (0.0-10.0); %Lymphocytes 22.3 % (21.0-51.0); %Monocytes 8.3 % (0.0-10.0); %Neutrophils 57.8 % (42.0-75.0); Hemoglobin 13.5 g/dL (12.0-16.0); Mean Corpuscular HGB CONC 32.7 g/dL (32.0-36.0); Mean Corpuscular Hemoglobin 31.3 pg (27.0-31.0); Mean Corpuscular Volume 95.6 fL (78.0-98.0); Mean Platelet Volume 8.2 fL (7.4-10.4); Platelet Count 388 thou/uL (130-400); RBC Distribution Width 13.5 % (11.5-14.5); Red Blood Cell (RBC) Count 4.32 mill/uL (4.20-5.40); White Blood Cell (WBC) Count 12.5 thou/uL (4.8-10.8)
[2021-07-07 12:56] LABS: Puncture Site RBA
[2021-07-07] MEDS ORDERED: Lorazepam 2 MG/ML VIAL ONE (12:56)
[2021-07-07 13:22] LABS: ALT (SGPT) 11 U/L (8-55); AST (SGOT) 13 U/L (5-34); Albumin 4.1 g/dL (3.4-4.8); Alkaline Phosphatase 59 U/L (40-110); Anion Gap 14 mmol/L (10-20); BUN (Urea Nitrogen) 8 mg/dL (9.8-20.1); Bilirubin, Total 0.5 mg/dL (0.2-1.2); Calc. Creatinine Clearance 0 mL/min (70-130); Calcium 9.7 mg/dL (7.8-10.44); Carbon Dioxide 24 mmol/L (23-31); Chloride 108 mmol/L (98-107); Globulin 2.4 g/dL (2.4-3.5); Glucose 96 mg/dL (80-115); Potassium 4.2 mmol/L (3.5-5.1); Protein, Total 6.5 g/dL (5.8-8.1); Sodium 142 mmol/L (136-145)
[2021-07-07 13:53] LABS: SARS-CoV-2 NAA Rapid Test Not Detected (NotDetected)
== END 2021-07-07 18:50 | disposition home or self-care (01) ==
LOC: ERS 12:02
DX: J44.1 Chronic obstructive pulmonary disease with (acute) exacerbation (principal); R00.0 Tachycardia, unspecified; Z20.822 Contact with and (suspected) exposure to COVID-19; Z87.891 Personal history of nicotine dependence
CPT/HCPCS: 0240U; 36415; 36600; 71045; 80053; 82805; 83880; 84484; 85025; 85379; 93005; 94644; 94660; 96365; 96366; 96375; J2060; J2930; J3475; J7611; J7620

== ENCOUNTER 2021-07-15 16:38 | Emergency (ER) | payer SELFPAY ==
[2021-07-15 17:22] LABS: #Basophils 0.1 thou/uL (0.0-0.2); #Eosinphils 0.6 thou/uL (0.0-0.7); #Lymphocytes 2.9 thou/uL (1.20-3.40); #Neutrophils 10.1 thou/uL (1.40-6.50); %Basophils 0.6 % (0.0-1.0); %Eosinophils 3.8 % (0.0-10.0); %Monocytes 6.9 % (0.0-10.0); %Neutrophils 68.6 % (42.0-75.0); Hemoglobin 12.6 g/dL (12.0-16.0); Mean Corpuscular HGB CONC 31.8 g/dL (32.0-36.0); Mean Corpuscular Hemoglobin 29.8 pg (27.0-31.0); Mean Corpuscular Volume 93.9 fL (78.0-98.0); Mean Platelet Volume 8.2 fL (7.4-10.4); Platelet Count 322 thou/uL (130-400); RBC Distribution Width 13.4 % (11.5-14.5); Red Blood Cell (RBC) Count 4.24 mill/uL (4.20-5.40); White Blood Cell (WBC) Count 14.7 thou/uL (4.8-10.8)
[2021-07-15 17:43] LABS: ALT (SGPT) 12 U/L (8-55); AST (SGOT) 14 U/L (5-34); Albumin 3.7 g/dL (3.4-4.8); Alkaline Phosphatase 66 U/L (40-110); Anion Gap 15 mmol/L (10-20); BUN (Urea Nitrogen) 9 mg/dL (9.8-20.1); Bilirubin, Total 0.3 mg/dL (0.2-1.2); Calc. Creatinine Clearance 0 mL/min (70-130); Calcium 9.2 mg/dL (7.8-10.44); Carbon Dioxide 23 mmol/L (23-31); Chloride 107 mmol/L (98-107); Globulin 2.2 g/dL (2.4-3.5); Glucose 91 mg/dL (80-115); Potassium 3.3 mmol/L (3.5-5.1); Protein, Total 5.9 g/dL (5.8-8.1); Sodium 142 mmol/L (136-145)
[2021-07-15] MEDS ORDERED: predniSONE 20 MG TAB ONE (18:45)
== END 2021-07-15 20:29 | disposition home or self-care (01) ==
LOC: ERS 16:38
DX: J44.1 Chronic obstructive pulmonary disease with (acute) exacerbation (principal); Z79.899 Other long term (current) drug therapy; Z87.891 Personal history of nicotine dependence
CPT/HCPCS: 36415; 71045; 80053; 84484; 85025; 93005; 94640; J7512; J7620

== ENCOUNTER 2021-08-02 03:23 | Emergency (ER) | payer SELFPAY ==
[2021-08-02] MEDS ORDERED: predniSONE 20 MG TAB ONE (03:49)
[2021-08-02 04:45] LABS: #Basophils 0.1 thou/uL (0.0-0.2); #Eosinphils 0.9 thou/uL (0.0-0.7); #Lymphocytes 2.5 thou/uL (1.20-3.40); #Monocytes 0.7 thou/uL (0.11-0.59); #Neutrophils 6.7 thou/uL (1.40-6.50); %Basophils 0.5 % (0.0-1.0); %Eosinophils 8.2 % (0.0-10.0); %Lymphocytes 22.9 % (21.0-51.0); %Neutrophils 62.4 % (42.0-75.0); Hemoglobin 13.6 g/dL (12.0-16.0); Mean Corpuscular HGB CONC 32.7 g/dL (32.0-36.0); Mean Corpuscular Hemoglobin 30.5 pg (27.0-31.0); Mean Corpuscular Volume 93.2 fL (78.0-98.0); Mean Platelet Volume 8.5 fL (7.4-10.4); Platelet Count 292 thou/uL (130-400); RBC Distribution Width 13.5 % (11.5-14.5); Red Blood Cell (RBC) Count 4.47 mill/uL (4.20-5.40); White Blood Cell (WBC) Count 10.8 thou/uL (4.8-10.8)
[2021-08-02 05:04] LABS: ALT (SGPT) 9 U/L (8-55); AST (SGOT) 16 U/L (5-34); Albumin 3.8 g/dL (3.4-4.8); Alkaline Phosphatase 58 U/L (40-110); Anion Gap 12 mmol/L (10-20); BUN (Urea Nitrogen) 9 mg/dL (9.8-20.1); Bilirubin, Total 0.4 mg/dL (0.2-1.2); Calc. Creatinine Clearance 0 mL/min (70-130); Calcium 9.2 mg/dL (7.8-10.44); Carbon Dioxide 18 mmol/L (23-31); Chloride 111 mmol/L (98-107); Globulin 2.7 g/dL (2.4-3.5); Glucose 105 mg/dL (80-115); Potassium 3.3 mmol/L (3.5-5.1); Protein, Total 6.5 g/dL (5.8-8.1); Sodium 138 mmol/L (136-145)
== END 2021-08-02 05:16 | disposition home or self-care (01) ==
LOC: ERS 03:23
DX: J44.1 Chronic obstructive pulmonary disease with (acute) exacerbation (principal); Z87.891 Personal history of nicotine dependence; Z79.899 Other long term (current) drug therapy
CPT/HCPCS: 71045; 80053; 85025; 93005; J7512; J7620

== ENCOUNTER 2021-08-09 14:10 | Emergency (ER) | payer SELFPAY ==
[2021-08-09 14:46] LABS: #Basophils 0.1 thou/uL (0.0-0.2); #Eosinphils 0.3 thou/uL (0.0-0.7); #Lymphocytes 4.4 thou/uL (1.20-3.40); #Monocytes 1.1 thou/uL (0.11-0.59); #Neutrophils 7.7 thou/uL (1.40-6.50); %Basophils 0.6 % (0.0-1.0); %Eosinophils 2.3 % (0.0-10.0); %Lymphocytes 32.6 % (21.0-51.0); %Monocytes 8.2 % (0.0-10.0); %Neutrophils 56.3 % (42.0-75.0); Hemoglobin 14.2 g/dL (12.0-16.0); Mean Corpuscular HGB CONC 32.8 g/dL (32.0-36.0); Mean Corpuscular Hemoglobin 30.8 pg (27.0-31.0); Mean Platelet Volume 8.5 fL (7.4-10.4); Platelet Count 344 thou/uL (130-400); RBC Distribution Width 13.4 % (11.5-14.5); Red Blood Cell (RBC) Count 4.62 mill/uL (4.20-5.40); White Blood Cell (WBC) Count 13.6 thou/uL (4.8-10.8)
[2021-08-09] MEDS ORDERED: predniSONE 20 MG TAB ONE (14:51)
[2021-08-09] MEDS ORDERED: Ipratropium Bromide 2.5 ml Neb ONE (14:51)
[2021-08-09] MEDS ORDERED: Albuterol Sulfate 1.25 MG/3 ML NEB ONE (14:51)
[2021-08-09] MEDS ORDERED: Labetalol HCl 100 MG/20 ML VIAL ONE ×2 (14:51→14:53)
[2021-08-09 15:10] LABS: ALT (SGPT) 10 U/L (8-55); AST (SGOT) 10 U/L (5-34); Alkaline Phosphatase 57 U/L (40-110); Anion Gap 14 mmol/L (10-20); BUN (Urea Nitrogen) 16 mg/dL (9.8-20.1); Bilirubin, Total 0.4 mg/dL (0.2-1.2); Calc. Creatinine Clearance 0 mL/min (70-130); Calcium 9.7 mg/dL (7.8-10.44); Carbon Dioxide 27 mmol/L (23-31); Chloride 107 mmol/L (98-107); Globulin 2.3 g/dL (2.4-3.5); Glucose 96 mg/dL (80-115); Potassium 3.8 mmol/L (3.5-5.1); Protein, Total 6.3 g/dL (5.8-8.1); Sodium 144 mmol/L (136-145)
== END 2021-08-09 16:10 | disposition home or self-care (01) ==
LOC: ERS 14:10
DX: J44.1 Chronic obstructive pulmonary disease with (acute) exacerbation (principal); Z87.891 Personal history of nicotine dependence
CPT/HCPCS: 36415; 71045; 80053; 83880; 84484; 85025; 93005; 96374; J7512

== ENCOUNTER 2021-08-23 14:24 | Emergency (ER) | payer SELFPAY ==
[2021-08-23 14:58] LABS: #Basophils 0.1 thou/uL (0.0-0.2); #Eosinphils 0.5 thou/uL (0.0-0.7); #Lymphocytes 1.9 thou/uL (1.20-3.40); #Monocytes 0.7 thou/uL (0.11-0.59); #Neutrophils 10.2 thou/uL (1.40-6.50); %Basophils 0.5 % (0.0-1.0); %Eosinophils 3.8 % (0.0-10.0); %Lymphocytes 13.8 % (21.0-51.0); %Monocytes 5.5 % (0.0-10.0); %Neutrophils 76.4 % (42.0-75.0); Hemoglobin 13.9 g/dL (12.0-16.0); Mean Corpuscular HGB CONC 33.2 g/dL (32.0-36.0); Mean Corpuscular Hemoglobin 31.3 pg (27.0-31.0); Mean Corpuscular Volume 94.3 fL (78.0-98.0); Mean Platelet Volume 7.9 fL (7.4-10.4); Platelet Count 313 thou/uL (130-400); RBC Distribution Width 13.2 % (11.5-14.5); Red Blood Cell (RBC) Count 4.43 mill/uL (4.20-5.40); White Blood Cell (WBC) Count 13.3 thou/uL (4.8-10.8)
[2021-08-23 15:18] LABS: ALT (SGPT) 14 U/L (8-55); AST (SGOT) 15 U/L (5-34); Albumin 4.2 g/dL (3.4-4.8); Alkaline Phosphatase 76 U/L (40-110); Anion Gap 16 mmol/L (10-20); BUN (Urea Nitrogen) 12 mg/dL (9.8-20.1); Bilirubin, Total 0.4 mg/dL (0.2-1.2); Calc. Creatinine Clearance 0 mL/min (70-130); Calcium 9.5 mg/dL (7.8-10.44); Carbon Dioxide 21 mmol/L (23-31); Chloride 108 mmol/L (98-107); Globulin 2.6 g/dL (2.4-3.5); Glucose 110 mg/dL (80-115); Protein, Total 6.8 g/dL (5.8-8.1); Sodium 141 mmol/L (136-145)
[2021-08-23] MEDS ORDERED: Albuterol Sulfate 1.25 MG/3 ML NEB ONE (15:24)
[2021-08-23] MEDS ORDERED: Magnesium 2 GM/50 ML BAG (IN WATER) ONE (15:28)
[2021-08-23] MEDS ORDERED: methylPREDNISolone Sod Succ/PF 125 MG/2 ML VIAL ONE (15:28)
== END 2021-08-23 16:58 | disposition home or self-care (01) ==
LOC: ERS 14:24
DX: J44.1 Chronic obstructive pulmonary disease with (acute) exacerbation (principal); Z87.891 Personal history of nicotine dependence; Z79.899 Other long term (current) drug therapy
CPT/HCPCS: 36415; 71045; 80053; 83880; 84484; 85025; 93005; 96374; J2930; J3475

== ENCOUNTER 2021-09-04 09:08 | Emergency (ER) | payer SELFPAY ==
[2021-09-04] MEDS ORDERED: methylPREDNISolone Sod Succ/PF 125 MG/2 ML VIAL ONE ×2 (09:29→09:38)
[2021-09-04] MEDS ORDERED: Magnesium 2 GM/50 ML BAG (IN WATER) ONE (09:29)
[2021-09-04 09:45] LABS: Actual Bicarbonate (HCO3v) 24 mEq/L (22-28); Analyzer IN Cardio ER; Base Excess -0.7 mEq/L (-2.0 to +3.0); Calcium, Ionized (venous) 1.11 mmol/L (1.16-1.32); Chloride (VBG) 110 mmol/L (98-106); Hemoglobin (Hb) 14.3 g/dL (11.7-16.1); Potassium (VBG) 3.63 mmol/L (3.70-5.30); Sodium 141.6 mmol/L (133-146); pH (venous) 7.42 (7.32-7.43)
[2021-09-04 09:58] LABS: #Basophils 0.1 thou/uL (0.0-0.2); #Eosinphils 0.8 thou/uL (0.0-0.7); #Lymphocytes 2.8 thou/uL (1.20-3.40); #Monocytes 0.9 thou/uL (0.11-0.59); %Basophils 0.9 % (0.0-1.0); %Eosinophils 6.7 % (0.0-10.0); %Monocytes 7.8 % (0.0-10.0); %Neutrophils 60.5 % (42.0-75.0); Hemoglobin 13.7 g/dL (12.0-16.0); Mean Corpuscular Hemoglobin 30.9 pg (27.0-31.0); Mean Corpuscular Volume 93.9 fL (78.0-98.0); Mean Platelet Volume 7.7 fL (7.4-10.4); Platelet Count 348 thou/uL (130-400); RBC Distribution Width 13.2 % (11.5-14.5); Red Blood Cell (RBC) Count 4.42 mill/uL (4.20-5.40); White Blood Cell (WBC) Count 11.5 thou/uL (4.8-10.8)
[2021-09-04 10:16] LABS: ALT (SGPT) 10 U/L (8-55); AST (SGOT) 11 U/L (5-34); Albumin 3.9 g/dL (3.4-4.8); Alkaline Phosphatase 58 U/L (40-110); Anion Gap 13 mmol/L (10-20); BUN (Urea Nitrogen) 9 mg/dL (9.8-20.1); Bilirubin, Total 0.4 mg/dL (0.2-1.2); Calc. Creatinine Clearance 0 mL/min (70-130); Calcium 9.2 mg/dL (7.8-10.44); Carbon Dioxide 24 mmol/L (23-31); Chloride 111 mmol/L (98-107); Globulin 2.1 g/dL (2.4-3.5); Glucose 90 mg/dL (80-115); Potassium 3.9 mmol/L (3.5-5.1); Sodium 144 mmol/L (136-145)
[2021-09-04] MEDS ORDERED: cefTRIAXone\\ROCEPHIN 1 GM VIAL ONE (10:23)
[2021-09-04] MEDS ORDERED: Azithromycin 500 MG VIAL ONE (11:29)
== END 2021-09-04 12:53 | disposition home or self-care (01) ==
LOC: ERS 09:08
DX: J44.1 Chronic obstructive pulmonary disease with (acute) exacerbation (principal); Z87.891 Personal history of nicotine dependence
CPT/HCPCS: 71045; 80053; 82805; 83880; 84484; 85025; 93005; 96365; 96375; J0456; J0696; J2930; J3475; J7620

== ENCOUNTER 2021-09-23 04:39 | Emergency (ER) | payer SELFPAY ==
[2021-09-23 05:10] LABS: #Basophils 0.1 thou/uL (0.0-0.2); #Eosinphils 1.2 thou/uL (0.0-0.7); #Lymphocytes 3.2 thou/uL (1.20-3.40); #Monocytes 1.2 thou/uL (0.11-0.59); #Neutrophils 7.1 thou/uL (1.40-6.50); %Basophils 1.1 % (0.0-1.0); %Eosinophils 9.4 % (0.0-10.0); %Lymphocytes 25.2 % (21.0-51.0); %Monocytes 9.2 % (0.0-10.0); %Neutrophils 55.2 % (42.0-75.0); Hemoglobin 13.8 g/dL (12.0-16.0); Mean Corpuscular HGB CONC 32.1 g/dL (32.0-36.0); Mean Corpuscular Hemoglobin 30.4 pg (27.0-31.0); Mean Corpuscular Volume 94.8 fL (78.0-98.0); Mean Platelet Volume 7.6 fL (7.4-10.4); Platelet Count 360 thou/uL (130-400); RBC Distribution Width 13.3 % (11.5-14.5); Red Blood Cell (RBC) Count 4.53 mill/uL (4.20-5.40); White Blood Cell (WBC) Count 12.8 thou/uL (4.8-10.8)
[2021-09-23 05:22] LABS: ALT (SGPT) 11 U/L (8-55); AST (SGOT) 14 U/L (5-34); Alkaline Phosphatase 67 U/L (40-110); Anion Gap 16 mmol/L (10-20); BUN (Urea Nitrogen) 12 mg/dL (9.8-20.1); Bilirubin, Total 0.5 mg/dL (0.2-1.2); Calc. Creatinine Clearance 0 mL/min (70-130); Calcium 9.3 mg/dL (7.8-10.44); Carbon Dioxide 20 mmol/L (23-31); Chloride 111 mmol/L (98-107); Globulin 2.5 g/dL (2.4-3.5); Glucose 98 mg/dL (80-115); Potassium 4.3 mmol/L (3.5-5.1); Protein, Total 6.5 g/dL (5.8-8.1); Sodium 143 mmol/L (136-145)
== END 2021-09-23 06:45 | disposition home or self-care (01) ==
LOC: ERS 04:39
DX: J44.1 Chronic obstructive pulmonary disease with (acute) exacerbation (principal); F17.210 Nicotine dependence, cigarettes, uncomplicated
CPT/HCPCS: 36415; 71045; 80053; 83880; 84484; 85025; 93005

== ENCOUNTER 2021-10-11 11:29 | Emergency (ER) | payer SELFPAY ==
[2021-10-11] MEDS ORDERED: Acetaminophen 500 MG TAB ONE (12:08)
[2021-10-11 12:10] LABS: #Basophils 0.1 thou/uL (0.0-0.2); #Eosinphils 0.4 thou/uL (0.0-0.7); #Lymphocytes 2.2 thou/uL (1.20-3.40); #Monocytes 0.8 thou/uL (0.11-0.59); #Neutrophils 8.2 thou/uL (1.40-6.50); %Basophils 0.7 % (0.0-1.0); %Eosinophils 3.6 % (0.0-10.0); %Lymphocytes 18.9 % (21.0-51.0); %Neutrophils 69.7 % (42.0-75.0); Hemoglobin 14.2 g/dL (12.0-16.0); Mean Corpuscular HGB CONC 33.4 g/dL (32.0-36.0); Mean Corpuscular Hemoglobin 31.2 pg (27.0-31.0); Mean Corpuscular Volume 93.5 fL (78.0-98.0); Mean Platelet Volume 7.9 fL (7.4-10.4); Platelet Count 305 thou/uL (130-400); RBC Distribution Width 13.5 % (11.5-14.5); Red Blood Cell (RBC) Count 4.56 mill/uL (4.20-5.40); White Blood Cell (WBC) Count 11.8 thou/uL (4.8-10.8)
[2021-10-11 12:25] LABS: ALT (SGPT) 16 U/L (8-55); AST (SGOT) 24 U/L (5-34); Albumin 4.2 g/dL (3.4-4.8); Alkaline Phosphatase 59 U/L (40-110); Anion Gap 17 mmol/L (10-20); BUN (Urea Nitrogen) 10 mg/dL (9.8-20.1); Bilirubin, Total 0.6 mg/dL (0.2-1.2); Calc. Creatinine Clearance 0 mL/min (70-130); Calcium 9.8 mg/dL (7.8-10.44); Carbon Dioxide 20 mmol/L (23-31); Chloride 109 mmol/L (98-107); Globulin 2.4 g/dL (2.4-3.5); Glucose 108 mg/dL (80-115); Lipase 8 U/L (8-78); Potassium 4.2 mmol/L (3.5-5.1); Protein, Total 6.6 g/dL (5.8-8.1); Sodium 142 mmol/L (136-145)
[2021-10-11 12:41] LABS: Bacteria/HPF 2+ HPF (None Seen); Bilirubin Negative (Negative); Blood, Urine 1+ (Negative); Clarity Clear (Clear); Glucose, Urine (Dipstick) Normal (Negative); Ketone, Urine 10 mg/dL (Negative); Leukocyte Negative Leu/uL (Negative); Nitrite Negative (Negative); Protein, Urine (Dipstick) 100 mg/dL (Neg-Trace); Specific Gravity, Urine 1.026 (1.002-1.036); Squamous Epithelial None Seen HPF (0-3); Urobilinogen Normal mg/dL (Less than 2); WBC/HPF 0-3 HPF (0-3); pH, Urine 5.5 (5.0-9.0)
[2021-10-11] MEDS ORDERED: Ibuprofen 200 MG TAB ONE (13:24)
[2021-10-11] MEDS ORDERED: Cyclobenzaprine 10 MG TAB ONE (13:24)
== END 2021-10-11 13:40 | disposition home or self-care (01) ==
LOC: ERS 11:29
DX: R51.9 Headache, unspecified (principal); J44.9 Chronic obstructive pulmonary disease, unspecified; Z87.891 Personal history of nicotine dependence; Z79.899 Other long term (current) drug therapy
CPT/HCPCS: 36415; 51701; 70450; 71045; 80053; 81003; 81015; 83605; 83690; 84484; 85025; 87040; 87149; 93005

== ENCOUNTER 2021-10-17 16:42 | Emergency (ER) | payer SELFPAY ==
[2021-10-17 17:20] LABS: #Basophils 0.1 thou/uL (0.0-0.2); #Eosinphils 0.4 thou/uL (0.0-0.7); #Lymphocytes 2.6 thou/uL (1.20-3.40); #Monocytes 0.7 thou/uL (0.11-0.59); #Neutrophils 5.6 thou/uL (1.40-6.50); %Basophils 1.2 % (0.0-1.0); %Eosinophils 4.6 % (0.0-10.0); %Lymphocytes 27.7 % (21.0-51.0); %Monocytes 7.8 % (0.0-10.0); %Neutrophils 58.7 % (42.0-75.0); Hemoglobin 12.3 g/dL (12.0-16.0); Mean Corpuscular HGB CONC 32.9 g/dL (32.0-36.0); Mean Corpuscular Volume 94.2 fL (78.0-98.0); Mean Platelet Volume 7.8 fL (7.4-10.4); Platelet Count 295 thou/uL (130-400); RBC Distribution Width 13.7 % (11.5-14.5); Red Blood Cell (RBC) Count 3.98 mill/uL (4.20-5.40); White Blood Cell (WBC) Count 9.5 thou/uL (4.8-10.8)
[2021-10-17 17:43] LABS: ALT (SGPT) 17 U/L (8-55); AST (SGOT) 21 U/L (5-34); Alkaline Phosphatase 50 U/L (40-110); Anion Gap 14 mmol/L (10-20); BUN (Urea Nitrogen) 10 mg/dL (9.8-20.1); Bilirubin, Total 0.4 mg/dL (0.2-1.2); Calc. Creatinine Clearance 0 mL/min (70-130); Calcium 8.9 mg/dL (7.8-10.44); Carbon Dioxide 24 mmol/L (23-31); Chloride 107 mmol/L (98-107); Globulin 2.2 g/dL (2.4-3.5); Glucose 100 mg/dL (80-115); Protein, Total 6.2 g/dL (5.8-8.1); Sodium 142 mmol/L (136-145)
== END 2021-10-17 18:40 | disposition home or self-care (01) ==
LOC: ERS 16:42
DX: J44.1 Chronic obstructive pulmonary disease with (acute) exacerbation (principal); Z87.891 Personal history of nicotine dependence; Z79.899 Other long term (current) drug therapy
CPT/HCPCS: 71045; 80053; 84484; 85025; 93005; 94760

== ENCOUNTER 2021-12-01 17:21 | Emergency (ER) | payer OTHER, SELFPAY ==
[2021-12-01 18:43] LABS: Hemoglobin 12.9 g/dL (12.0-16.0); Mean Corpuscular HGB CONC 32.8 g/dL (32.0-36.0); Mean Corpuscular Hemoglobin 30.9 pg (27.0-31.0); Mean Corpuscular Volume 93.9 fL (78.0-98.0); Mean Platelet Volume 7.8 fL (7.4-10.4); Platelet Count 305 thou/uL (130-400); RBC Distribution Width 13.7 % (11.5-14.5); Red Blood Cell (RBC) Count 4.18 mill/uL (4.20-5.40); White Blood Cell (WBC) Count 21.8 thou/uL (4.8-10.8)
[2021-12-01 18:57] LABS: ALT (SGPT) 11 U/L (8-55); AST (SGOT) 15 U/L (5-34); Albumin 3.9 g/dL (3.4-4.8); Alkaline Phosphatase 62 U/L (40-110); Anion Gap 14 mmol/L (10-20); BUN (Urea Nitrogen) 12 mg/dL (9.8-20.1); Band 2 % (5-11); Bilirubin, Total 0.3 mg/dL (0.2-1.2); Calc. Creatinine Clearance 0 mL/min (70-130); Carbon Dioxide 22 mmol/L (23-31); Chloride 110 mmol/L (98-107); Eosinophils 2 % (0-10); Globulin 2.2 g/dL (2.4-3.5); Glucose 116 mg/dL (80-115); Lymphocytes 6 % (21-51); MDiff Complete? YES; Monocytes 6 % (0-10); Neutrophil 82 % (42-75); Platelet Morphology Comment Appears Adequate; Potassium 3.1 mmol/L (3.5-5.1); Protein, Total 6.1 g/dL (5.8-8.1); RBC Morphology Normal; Sodium 143 mmol/L (136-145)
[2021-12-01] MEDS ORDERED: Potassium Chloride 20 MEQ TAB ONE (19:11)
[2021-12-01 23:19] LABS: SARS-CoV-2 PCR by NAA Not Detected (NotDetected)
== END 2021-12-01 20:14 | disposition home or self-care (01) ==
LOC: ERS 17:21
DX: S61.532A Puncture wound without foreign body of left wrist, initial encounter (principal); J44.1 Chronic obstructive pulmonary disease with (acute) exacerbation; W54.0XXA Bitten by dog, initial encounter; Z20.822 Contact with and (suspected) exposure to COVID-19; Z87.891 Personal history of nicotine dependence; Z79.899 Other long term (current) drug therapy
CPT/HCPCS: 36415; 71045; 80053; 84484; 85025; 93005; 94760; U0003; U0005

== ENCOUNTER 2021-12-11 11:45 | Emergency (ER) | payer SELFPAY ==
[2021-12-11] MEDS ORDERED: methylPREDNISolone Sod Succ/PF 125 MG/2 ML VIAL ONE (12:21)
[2021-12-11] MEDS ORDERED: Lorazepam 1 MG TAB ONE (12:21)
== END 2021-12-11 15:22 | disposition home or self-care (01) ==
LOC: ERS 11:45
DX: J44.1 Chronic obstructive pulmonary disease with (acute) exacerbation (principal); Z87.891 Personal history of nicotine dependence
CPT/HCPCS: 71045; 94640; 96374; J2930; J7620

== ENCOUNTER 2022-02-01 13:49 | Emergency (ER) | payer SELFPAY ==
[~2022-02-01 13:49] MED LIST: Iopamidol-370 76% 500 ML 1 ML ONE
[2022-02-01 14:22] LABS: #Basophils 0.1 thou/uL (0.0-0.2); #Eosinphils 0.4 thou/uL (0.0-0.7); #Lymphocytes 1.5 thou/uL (1.20-3.40); #Monocytes 0.5 thou/uL (0.11-0.59); %Basophils 0.5 % (0.0-1.0); %Eosinophils 3.2 % (0.0-10.0); %Lymphocytes 12.8 % (21.0-51.0); %Monocytes 4.5 % (0.0-10.0); %Neutrophils 79.1 % (42.0-75.0); Hemoglobin 12.9 g/dL (12.0-16.0); Mean Corpuscular HGB CONC 31.6 g/dL (32.0-36.0); Mean Corpuscular Hemoglobin 30.1 pg (27.0-31.0); Mean Corpuscular Volume 95.3 fL (78.0-98.0); Platelet Count 326 thou/uL (130-400); RBC Distribution Width 13.9 % (11.5-14.5); Red Blood Cell (RBC) Count 4.29 mill/uL (4.20-5.40); White Blood Cell (WBC) Count 11.4 thou/uL (4.8-10.8)
[2022-02-01 14:45] LABS: ALT (SGPT) 11 U/L (8-55); AST (SGOT) 14 U/L (5-34); Alkaline Phosphatase 67 U/L (40-110); Anion Gap 16 mmol/L (10-20); BUN (Urea Nitrogen) 7 mg/dL (9.8-20.1); Bilirubin, Total 0.4 mg/dL (0.2-1.2); Calc. Creatinine Clearance 0 mL/min (70-130); Calcium 9.1 mg/dL (7.8-10.44); Carbon Dioxide 20 mmol/L (23-31); Chloride 106 mmol/L (98-107); Globulin 2.6 g/dL (2.4-3.5); Glucose 108 mg/dL (80-115); Potassium 3.6 mmol/L (3.5-5.1); Protein, Total 6.6 g/dL (5.8-8.1); Sodium 138 mmol/L (136-145)
[2022-02-01] MEDS ORDERED: Dexamethasone 4 MG TAB ONE (14:51)
[2022-02-01] MEDS ORDERED: Dexamethasone 10 MG/ML VIAL ONE ×2 (14:51→14:53)
[2022-02-01 16:20] LABS: SARS-CoV-2 NAA Rapid Test Not Detected (NotDetected)
[2022-02-01 17:11] LABS: Bilirubin Negative (Negative); Blood, Urine Negative (Negative); Clarity Clear (Clear); Glucose, Urine (Dipstick) Normal (Negative); Ketone, Urine Negative (Negative); Leukocyte Negative Leu/uL (Negative); Nitrite Negative (Negative); Protein, Urine (Dipstick) Negative (Neg-Trace); Specific Gravity, Urine 1.003 (1.002-1.036); Urobilinogen Normal mg/dL (Less than 2)
[2022-02-01 17:32] LABS: Lactic Acid 0.9 mmol/L (0.5-2.2)
== END 2022-02-01 18:50 | disposition home or self-care (01) ==
LOC: ERS 13:49
DX: J44.1 Chronic obstructive pulmonary disease with (acute) exacerbation (principal); Z87.891 Personal history of nicotine dependence; Z20.822 Contact with and (suspected) exposure to COVID-19
CPT/HCPCS: 36415; 71045; 71275; 80053; 81003; 83605; 84484; 85025; 85379; 87040; 87804; 93005; 94640; J1100; J7620; J8540; Q9967; U0002

== ENCOUNTER 2022-03-15 08:39 | Emergency (ER) | payer SELFPAY ==
[2022-03-15 09:23] LABS: #Basophils 0.1 thou/uL (0.0-0.2); #Eosinphils 0.5 thou/uL (0.0-0.7); #Lymphocytes 2.1 thou/uL (1.20-3.40); #Monocytes 0.6 thou/uL (0.11-0.59); #Neutrophils 6.8 thou/uL (1.40-6.50); %Basophils 0.8 % (0.0-1.0); %Eosinophils 4.6 % (0.0-10.0); %Lymphocytes 20.8 % (21.0-51.0); %Monocytes 6.2 % (0.0-10.0); %Neutrophils 67.6 % (42.0-75.0); Hemoglobin 13.5 g/dL (12.0-16.0); Mean Corpuscular HGB CONC 31.3 g/dL (32.0-36.0); Mean Corpuscular Volume 95.9 fL (78.0-98.0); Mean Platelet Volume 8.5 fL (7.4-10.4); Platelet Count 320 thou/uL (130-400); RBC Distribution Width 13.5 % (11.5-14.5); Red Blood Cell (RBC) Count 4.52 mill/uL (4.20-5.40); White Blood Cell (WBC) Count 10.1 thou/uL (4.8-10.8)
[2022-03-15 09:51] LABS: ALT (SGPT) 9 U/L (8-55); AST (SGOT) 15 U/L (5-34); Alkaline Phosphatase 69 U/L (40-110); Anion Gap 17 mmol/L (10-20); BUN (Urea Nitrogen) 12 mg/dL (9.8-20.1); Bilirubin, Total 0.8 mg/dL (0.2-1.2); Calc. Creatinine Clearance 0 mL/min (70-130); Calcium 9.4 mg/dL (7.8-10.44); Carbon Dioxide 20 mmol/L (23-31); Chloride 108 mmol/L (98-107); Glucose 90 mg/dL (80-115); Potassium 4.7 mmol/L (3.5-5.1); Sodium 140 mmol/L (136-145)
== END 2022-03-15 10:45 | disposition home or self-care (01) ==
LOC: ERS 08:39
DX: J44.1 Chronic obstructive pulmonary disease with (acute) exacerbation (principal); Z79.51 Long term (current) use of inhaled steroids; Z87.891 Personal history of nicotine dependence
CPT/HCPCS: 36415; 71045; 80053; 83880; 84484; 85025; 94640

== ENCOUNTER 2022-04-06 08:55 | Inpatient (IN) | payer SELFPAY ==
[2022-04-06] MEDS ORDERED: methylPREDNISolone Sod Succ/PF 125 MG/2 ML VIAL ONE (09:12)
[2022-04-06] MEDS ORDERED: Magnesium 2 GM/50 ML BAG (IN WATER) ONE (09:12)
[2022-04-06] MEDS ORDERED: Albuterol Sulfate 2.5 mg/0.5 ml Neb ONE (09:16)
[2022-04-06 09:25] LABS: #Basophils 0.2 thou/uL (0.0-0.2); #Eosinphils 1.1 thou/uL (0.0-0.7); #Lymphocytes 4.4 thou/uL (1.20-3.40); #Monocytes 0.8 thou/uL (0.11-0.59); #Neutrophils 7.3 thou/uL (1.40-6.50); %Basophils 1.3 % (0.0-1.0); %Eosinophils 8.2 % (0.0-10.0); %Lymphocytes 31.7 % (21.0-51.0); %Monocytes 5.9 % (0.0-10.0); %Neutrophils 52.9 % (42.0-75.0); Hemoglobin 13.2 g/dL (12.0-16.0); Mean Corpuscular HGB CONC 31.4 g/dL (32.0-36.0); Mean Corpuscular Hemoglobin 30.8 pg (27.0-31.0); Mean Corpuscular Volume 98.1 fL (78.0-98.0); Mean Platelet Volume 8.3 fL (7.4-10.4); Platelet Count 371 thou/uL (130-400); RBC Distribution Width 13.8 % (11.5-14.5); Red Blood Cell (RBC) Count 4.28 mill/uL (4.20-5.40); White Blood Cell (WBC) Count 13.7 thou/uL (4.8-10.8)
[2022-04-06 09:32] LABS: Actual Bicarbonate (HCO3a) 23.8 mEq/L (22-28); Analyzer IN Cardio ER; Base Excess (BEa) -5.7 mEq/L (-2.0 to +3.0); Calcium, Ionized (arterial) 1.23 mmol/L (1.12-1.30); Hemoglobin (Hb) 13.5 g/dL (12.0-16.0); O2 Tension (PaO2), arterial 61.3 mmHg (> 80.0)
[2022-04-06 09:40] LABS: CO2 Tension 65.6 mmHg (35.0-45.0); Puncture Site RRA; pH, Arterial 7.18 (7.35-7.45)
[2022-04-06 09:43] LABS: ALT (SGPT) 12 U/L (8-55); AST (SGOT) 18 U/L (5-34); Albumin 3.8 g/dL (3.4-4.8); Alkaline Phosphatase 84 U/L (40-110); Anion Gap 15 mmol/L (10-20); BUN (Urea Nitrogen) 12 mg/dL (9.8-20.1); Bilirubin, Total 0.6 mg/dL (0.2-1.2); Calc. Creatinine Clearance 0 mL/min (70-130); Calcium 8.5 mg/dL (7.8-10.44); Carbon Dioxide 21 mmol/L (23-31); Chloride 109 mmol/L (98-107); Globulin 2.6 g/dL (2.4-3.5); Glucose 210 mg/dL (80-115); Potassium 3.9 mmol/L (3.5-5.1); Protein, Total 6.4 g/dL (5.8-8.1); Sodium 141 mmol/L (136-145)
[2022-04-06] MEDS ORDERED: Cefepime 2 GM VIAL ONE (09:50)
[2022-04-06] MEDS ORDERED: Cefepime 1 GM VIAL ONE (09:50)
[2022-04-06] MEDS ORDERED: Propofol 1,000 MG/100 ML VIAL IV ONE (09:54)
[2022-04-06] MEDS ORDERED: Fentanyl 100 MCG/2 ML VIAL ONE ×2 (10:06→10:30)
[2022-04-06 10:18] LABS: Bacteria/HPF None Seen HPF (None Seen); Bilirubin Negative (Negative); Blood, Urine Negative (Negative); Clarity Clear (Clear); Glucose, Urine (Dipstick) Normal (Negative); Ketone, Urine Negative (Negative); Leukocyte Negative Leu/uL (Negative); Nitrite Negative (Negative); Protein, Urine (Dipstick) 30 mg/dL (Neg-Trace); RBC/HPF 0-3 HPF (0-3); Specific Gravity, Urine 1.012 (1.002-1.036); Squamous Epithelial 0-3 HPF (0-3); Urobilinogen Normal mg/dL (Less than 2); WBC/HPF 0-3 HPF (0-3); pH, Urine 6.5 (5.0-9.0)
[2022-04-06] MEDS ORDERED: Vancomycin 1 GM/200 ML BAG ONE (10:20)
[2022-04-06] MEDS ORDERED: Bisacodyl 5 MG TAB PO PRN (10:41)
[2022-04-06] MEDS ORDERED: Acetaminophen 650 MG Suppository PR PRN (10:41)
[2022-04-06] MEDS ORDERED: Electrolyte Replacement Protocol 1 EACH IVPB SCH (10:41)
[2022-04-06] MEDS ORDERED: Ondansetron PF 4 MG/2 ML Vial IVP PRN (10:41)
[2022-04-06] MEDS ORDERED: Ventilator Sedation Protocol 1 EACH FS SCH (10:45)
[2022-04-06] MEDS ORDERED: Midazolam HCl 5 mg/ml Vial ONE (10:57)
[2022-04-06] MEDS ORDERED: Morphine 4 MG/ML VIAL SLOW IVP PRN (11:00)
[2022-04-06] MEDS ORDERED: DISCONTINUE PREVIOUS NARCOTIC PAIN MEDICATIONS AND BENZODIAZEPINES FS SCH (11:00)
[2022-04-06] MEDS ORDERED: Fentanyl BOLUS 250 ML IVPB PRN (11:00)
[2022-04-06] MEDS ORDERED: Morphine 2 MG/ML VIAL SLOW IVP PRN (11:00)
[2022-04-06] MEDS ORDERED: Propofol 1,000 MG/100 ML VIAL IV PRN (11:00)
[2022-04-06] MEDS ORDERED: Propofol BOLUS 1,000 MG/100 ML VIAL IV PRN (11:00)
[2022-04-06] MEDS ORDERED: Dextrose 50% Abboject 50 ML SYRINGE SLOW IVP PRN (11:40)
[2022-04-06] MEDS ORDERED: Dextrose 5% in Water 1,000 ML IV PRN (11:40)
[2022-04-06] MEDS ORDERED: HumaLOG 300 UNITS/3 ML VIAL SC PRN (11:40)
[2022-04-06] MEDS ORDERED: Norepinephrine 8 MG/0.9% NS 250 ML ONE (12:04)
[2022-04-06 12:09] LABS: Lactic Acid 0.9 mmol/L (0.5-2.2)
[2022-04-06] MEDS ORDERED: Norepinephrine 8 MG/0.9% NS 250 ML IVPB SCH (12:15)
[2022-04-06] MEDS ORDERED: Rocuronium Bromide 50 MG/5 ML VIAL ONE (12:41)
[2022-04-06] MEDS ORDERED: Rocuronium Bromide 10 MG/ML (10ML VIAL) IVP SCH (12:45)
[2022-04-06] MEDS: methylPREDNISolone Sod Succ 40 MG VIAL IVP SCH ×3 (13:31→23:57)
[2022-04-06 14:24] LABS: Actual Bicarbonate (HCO3a) 20.3 mEq/L (22-28); Base Excess (BEa) -6.5 mEq/L (-2.0 to +3.0); CO2 Tension 45.4 mmHg (35.0-45.0); Carboxyhemoglobin (COHb) 0.4 gm% (0.0-3.0); Hemoglobin (Hb) 12.1 g/dL (12.0-16.0); O2 Tension (PaO2), arterial 112.2 mmHg (> 80.0); Potassium - ABG Lab 4.02 mmol/L (3.70-5.30); pH, Arterial 7.27 (7.35-7.45)
[2022-04-06] MEDS: Lorazepam 2 MG/ML VIAL SLOW IVP PRN ×2 (15:26→19:14)
[2022-04-06 15:39] LABS: Puncture Site RBA
[2022-04-06] MEDS: Cefepime 2 GM in Sodium Chloride 0.9% 100 ML IVPB SCH (20:43)
[2022-04-06] MEDS: Famotidine 20 MG TAB PO SCH (20:43)
[2022-04-06] MEDS ORDERED: Vancomycin 1 GM in Premix Bag 1 BAG IVPB SCH (21:00)
[2022-04-07] MEDS: Lorazepam 2 MG/ML VIAL SLOW IVP PRN ×2 (00:11→08:51)
[2022-04-07 03:28] LABS: #Lymphocytes 0.6 thou/uL (1.20-3.40); #Monocytes 0.1 thou/uL (0.11-0.59); #Neutrophils 5.1 thou/uL (1.40-6.50); %Eosinophils 0.1 % (0.0-10.0); %Monocytes 1.7 % (0.0-10.0); %Neutrophils 88.3 % (42.0-75.0); Hemoglobin 11.1 g/dL (12.0-16.0); Mean Corpuscular HGB CONC 31.2 g/dL (32.0-36.0); Mean Corpuscular Hemoglobin 30.2 pg (27.0-31.0); Mean Corpuscular Volume 96.8 fL (78.0-98.0); Mean Platelet Volume 8.2 fL (7.4-10.4); Platelet Count 276 thou/uL (130-400); RBC Distribution Width 13.6 % (11.5-14.5); Red Blood Cell (RBC) Count 3.67 mill/uL (4.20-5.40); White Blood Cell (WBC) Count 5.8 thou/uL (4.8-10.8)
[2022-04-07 03:47] LABS: Anion Gap 14 mmol/L (10-20); BUN (Urea Nitrogen) 19 mg/dL (9.8-20.1); Calc. Creatinine Clearance 48 mL/min (70-130); Calcium 8.8 mg/dL (7.8-10.44); Carbon Dioxide 19 mmol/L (23-31); Chloride 112 mmol/L (98-107); Glucose 134 mg/dL (80-115); Potassium 4.9 mmol/L (3.5-5.1); Sodium 140 mmol/L (136-145)
[2022-04-07 03:56] LABS: Hemoglobin A1c 5.1 % (4.0-6.0)
[2022-04-07] MEDS: methylPREDNISolone Sod Succ 40 MG VIAL IVP SCH ×3 (05:05→18:43)
[2022-04-07 07:29] LABS: Actual Bicarbonate (HCO3a) 19.2 mEq/L (22-28); Base Excess (BEa) -8.5 mEq/L (-2.0 to +3.0); CO2 Tension 48.6 mmHg (35.0-45.0); Calcium, Ionized (arterial) 1.22 mmol/L (1.12-1.30); Carboxyhemoglobin (COHb) 0.1 gm% (0.0-3.0); Hemoglobin (Hb) 12.3 g/dL (12.0-16.0); O2 Tension (PaO2), arterial 94.3 mmHg (> 80.0); Potassium - ABG Lab 4.63 mmol/L (3.70-5.30)
[2022-04-07 07:31] LABS: Puncture Site RRA; pH, Arterial 7.21 (7.35-7.45)
[2022-04-07] MEDS: Lactated Ringer's 1,000 ML IV SCH (08:45)
[2022-04-07] MEDS: Cefepime 2 GM in Sodium Chloride 0.9% 100 ML IVPB SCH ×2 (08:46→21:41)
[2022-04-07] MEDS: Famotidine 20 MG TAB PO SCH ×2 (08:46→21:41)
[2022-04-07] MEDS: Enoxaparin Sodium 40 MG/0.4 ML SYRINGE SC SCH (08:46)
[2022-04-07] MEDS: fentaNYL Citrate/PF 2,000 MCG in Sodium Chloride 0.9% 60 ML IV SCH (09:42)
[2022-04-08] MEDS: Lactated Ringer's 1,000 ML IV SCH ×2 (00:40→10:33)
[2022-04-08] MEDS: methylPREDNISolone Sod Succ 40 MG VIAL IVP SCH ×5 (00:40→23:06)
[2022-04-08] MEDS: HumaLOG 300 UNITS/3 ML VIAL SC PRN ×2 (01:04→06:17)
[2022-04-08 03:41] LABS: #Lymphocytes 0.4 thou/uL (1.20-3.40); #Monocytes 0.5 thou/uL (0.11-0.59); #Neutrophils 12.3 thou/uL (1.40-6.50); %Eosinophils 0.1 % (0.0-10.0); %Lymphocytes 3.4 % (21.0-51.0); %Monocytes 3.8 % (0.0-10.0); %Neutrophils 92.8 % (42.0-75.0); Mean Corpuscular HGB CONC 31.6 g/dL (32.0-36.0); Mean Corpuscular Hemoglobin 30.9 pg (27.0-31.0); Mean Corpuscular Volume 97.9 fL (78.0-98.0); Mean Platelet Volume 8.4 fL (7.4-10.4); Platelet Count 259 thou/uL (130-400); RBC Distribution Width 13.7 % (11.5-14.5); Red Blood Cell (RBC) Count 3.57 mill/uL (4.20-5.40); White Blood Cell (WBC) Count 13.2 thou/uL (4.8-10.8)
[2022-04-08 04:00] LABS: Anion Gap 12 mmol/L (10-20); BUN (Urea Nitrogen) 30 mg/dL (9.8-20.1); Calc. Creatinine Clearance 52 mL/min (70-130); Carbon Dioxide 21 mmol/L (23-31); Chloride 111 mmol/L (98-107); Glucose 118 mg/dL (80-115); Potassium 4.7 mmol/L (3.5-5.1); Sodium 139 mmol/L (136-145)
[2022-04-08] MEDS: Lorazepam 2 MG/ML VIAL SLOW IVP PRN ×2 (04:55→21:51)
[2022-04-08] MEDS: fentaNYL Citrate/PF 2,000 MCG in Sodium Chloride 0.9% 60 ML IV SCH (07:43)
[2022-04-08 07:52] LABS: Actual Bicarbonate (HCO3a) 20.8 mEq/L (22-28); Base Excess (BEa) -5.2 mEq/L (-2.0 to +3.0); Carboxyhemoglobin (COHb) 0.1 gm% (0.0-3.0); Hemoglobin (Hb) 11.6 g/dL (12.0-16.0); O2 Tension (PaO2), arterial 99.3 mmHg (> 80.0); Potassium - ABG Lab 4.48 mmol/L (3.70-5.30); Puncture Site RRA; pH, Arterial 7.31 (7.35-7.45)
[2022-04-08] MEDS: Enoxaparin Sodium 40 MG/0.4 ML SYRINGE SC SCH (09:42)
[2022-04-08] MEDS: Famotidine 20 MG TAB PO SCH ×2 (09:42→20:58)
[2022-04-08] MEDS: Cefepime 2 GM in Sodium Chloride 0.9% 100 ML IVPB SCH ×2 (09:42→20:58)
[2022-04-08] MEDS ORDERED: Pancrelipase DR 12,000 1 CAP FS PRN (14:45)
[2022-04-08] MEDS ORDERED: Sodium Bicarbonate Tab 325 MG TAB PER TUBE PRN (14:45)
[2022-04-08] MEDS: Senokot S 8.6-50 MG TAB PER TUBE SCH (20:58)
[2022-04-09] MEDS: HumaLOG 300 UNITS/3 ML VIAL SC PRN ×2 (00:15→07:12)
[2022-04-09] MEDS: Lactated Ringer's 1,000 ML IV SCH ×2 (00:57→09:02)
[2022-04-09] MEDS ORDERED: fentaNYL Citrate-0.9 % NaCl/PF 100 ML IV SCH (01:30)
[2022-04-09 04:07] LABS: #Lymphocytes 0.4 thou/uL (1.20-3.40); #Monocytes 0.4 thou/uL (0.11-0.59); #Neutrophils 11.3 thou/uL (1.40-6.50); %Eosinophils 0.1 % (0.0-10.0); %Lymphocytes 3.3 % (21.0-51.0); %Monocytes 3.5 % (0.0-10.0); %Neutrophils 93.1 % (42.0-75.0); Hemoglobin 11.8 g/dL (12.0-16.0); Mean Corpuscular HGB CONC 32.2 g/dL (32.0-36.0); Mean Corpuscular Volume 96.4 fL (78.0-98.0); Mean Platelet Volume 8.4 fL (7.4-10.4); Platelet Count 250 thou/uL (130-400); RBC Distribution Width 13.8 % (11.5-14.5); Red Blood Cell (RBC) Count 3.81 mill/uL (4.20-5.40); White Blood Cell (WBC) Count 12.2 thou/uL (4.8-10.8)
[2022-04-09 04:33] LABS: Anion Gap 11 mmol/L (10-20); BUN (Urea Nitrogen) 25 mg/dL (9.8-20.1); Calc. Creatinine Clearance 56 mL/min (70-130); Carbon Dioxide 25 mmol/L (23-31); Chloride 106 mmol/L (98-107); Glucose 176 mg/dL (80-115); Potassium 4.7 mmol/L (3.5-5.1); Sodium 137 mmol/L (136-145)
[2022-04-09] MEDS: methylPREDNISolone Sod Succ 40 MG VIAL IVP SCH ×3 (05:57→22:11)
[2022-04-09 07:40] LABS: Base Excess (BEa) 1.4 mEq/L (-2.0 to +3.0); CO2 Tension 40.8 mmHg (35.0-45.0); Calcium, Ionized (arterial) 1.14 mmol/L (1.12-1.30); Carboxyhemoglobin (COHb) 0.6 gm% (0.0-3.0); Hemoglobin (Hb) 12.5 g/dL (12.0-16.0); O2 Tension (PaO2), arterial 88.2 mmHg (> 80.0); Potassium - ABG Lab 4.55 mmol/L (3.70-5.30); pH, Arterial 7.42 (7.35-7.45)
[2022-04-09 07:52] LABS: Puncture Site LRA
[2022-04-09] MEDS: Famotidine 20 MG TAB PO SCH ×2 (08:57→20:50)
[2022-04-09] MEDS: Enoxaparin Sodium 40 MG/0.4 ML SYRINGE SC SCH (08:57)
[2022-04-09] MEDS: Senokot S 8.6-50 MG TAB PER TUBE SCH ×2 (08:57→20:50)
[2022-04-09] MEDS: Azithromycin 250 MG in Sodium Chloride 0.9% 250 ML 250 ML IVPB SCH (10:39)
[2022-04-09] MEDS: Lorazepam 2 MG/ML VIAL SLOW IVP PRN ×2 (10:53→20:46)
[2022-04-10] MEDS: HumaLOG 300 UNITS/3 ML VIAL SC PRN ×2 (00:20→18:41)
[2022-04-10] MEDS: Lorazepam 2 MG/ML VIAL SLOW IVP PRN ×3 (02:18→17:02)
[2022-04-10 03:53] LABS: #Lymphocytes 0.3 thou/uL (1.20-3.40); #Monocytes 0.4 thou/uL (0.11-0.59); #Neutrophils 11.6 thou/uL (1.40-6.50); %Eosinophils 0.1 % (0.0-10.0); %Lymphocytes 2.5 % (21.0-51.0); %Monocytes 3.5 % (0.0-10.0); %Neutrophils 93.9 % (42.0-75.0); Hemoglobin 12.2 g/dL (12.0-16.0); Mean Corpuscular HGB CONC 32.9 g/dL (32.0-36.0); Mean Corpuscular Hemoglobin 31.7 pg (27.0-31.0); Mean Corpuscular Volume 96.4 fL (78.0-98.0); Mean Platelet Volume 8.5 fL (7.4-10.4); Platelet Count 217 thou/uL (130-400); RBC Distribution Width 13.4 % (11.5-14.5); Red Blood Cell (RBC) Count 3.84 mill/uL (4.20-5.40); White Blood Cell (WBC) Count 12.4 thou/uL (4.8-10.8)
[2022-04-10 04:15] LABS: Anion Gap 11 mmol/L (10-20); BUN (Urea Nitrogen) 21 mg/dL (9.8-20.1); Calc. Creatinine Clearance 58 mL/min (70-130); Calcium 8.8 mg/dL (7.8-10.44); Carbon Dioxide 29 mmol/L (23-31); Chloride 103 mmol/L (98-107); Glucose 136 mg/dL (80-115); Potassium 4.3 mmol/L (3.5-5.1); Sodium 139 mmol/L (136-145)
[2022-04-10 06:30] LABS: Actual Bicarbonate (HCO3a) 28.3 mEq/L (22-28); Base Excess (BEa) 3.2 mEq/L (-2.0 to +3.0); CO2 Tension 45.2 mmHg (35.0-45.0); Calcium, Ionized (arterial) 1.12 mmol/L (1.12-1.30); Carboxyhemoglobin (COHb) 0.4 gm% (0.0-3.0); Hemoglobin (Hb) 12.6 g/dL (12.0-16.0); O2 Tension (PaO2), arterial 96.7 mmHg (> 80.0); Potassium - ABG Lab 4.08 mmol/L (3.70-5.30); pH, Arterial 7.41 (7.35-7.45)
[2022-04-10] MEDS: methylPREDNISolone Sod Succ 40 MG VIAL IVP SCH ×3 (06:36→21:36)
[2022-04-10] MEDS: Lactated Ringer's 1,000 ML IV SCH ×2 (06:37→15:15)
[2022-04-10 07:25] LABS: Puncture Site LRA
[2022-04-10] MEDS: Azithromycin 250 MG in Sodium Chloride 0.9% 250 ML 250 ML IVPB SCH (07:56)
[2022-04-10] MEDS: Famotidine 20 MG TAB PO SCH ×2 (08:47→21:36)
[2022-04-10] MEDS: Senokot S 8.6-50 MG TAB PER TUBE SCH ×2 (08:47→21:36)
[2022-04-10] MEDS: Enoxaparin Sodium 40 MG/0.4 ML SYRINGE SC SCH (08:47)
[2022-04-10] MEDS: Azithromycin 250 MG, Admixture Fee 1 EACH in Sodium Chloride 0.9% 250 ML 250 ML IVPB SCH (08:47)
[2022-04-10] MEDS ORDERED: Scopolamine 1.5 mg/72 hour Patch TD SCH (10:00)
[2022-04-11] MEDS: Lorazepam 2 MG/ML VIAL SLOW IVP PRN ×2 (00:13→11:26)
[2022-04-11] MEDS: HumaLOG 300 UNITS/3 ML VIAL SC PRN ×2 (01:26→05:55)
[2022-04-11 03:58] LABS: #Lymphocytes 0.5 thou/uL (1.20-3.40); #Monocytes 0.6 thou/uL (0.11-0.59); #Neutrophils 7.7 thou/uL (1.40-6.50); %Basophils 0.1 % (0.0-1.0); %Eosinophils 0.2 % (0.0-10.0); %Lymphocytes 5.7 % (21.0-51.0); %Monocytes 6.9 % (0.0-10.0); %Neutrophils 87.1 % (42.0-75.0); Hemoglobin 13.2 g/dL (12.0-16.0); Mean Corpuscular HGB CONC 32.8 g/dL (32.0-36.0); Mean Corpuscular Hemoglobin 31.2 pg (27.0-31.0); Mean Corpuscular Volume 95.2 fL (78.0-98.0); Mean Platelet Volume 9.1 fL (7.4-10.4); Platelet Count 218 thou/uL (130-400); RBC Distribution Width 13.4 % (11.5-14.5); Red Blood Cell (RBC) Count 4.23 mill/uL (4.20-5.40); White Blood Cell (WBC) Count 8.8 thou/uL (4.8-10.8)
[2022-04-11 04:28] LABS: Anion Gap 13 mmol/L (10-20); BUN (Urea Nitrogen) 15 mg/dL (9.8-20.1); Calc. Creatinine Clearance 64 mL/min (70-130); Calcium 8.9 mg/dL (7.8-10.44); Carbon Dioxide 29 mmol/L (23-31); Chloride 100 mmol/L (98-107); Glucose 134 mg/dL (80-115); Potassium 3.6 mmol/L (3.5-5.1); Sodium 138 mmol/L (136-145)
[2022-04-11] MEDS: methylPREDNISolone Sod Succ 40 MG VIAL IVP SCH ×3 (05:55→21:12)
[2022-04-11] MEDS: Enoxaparin Sodium 40 MG/0.4 ML SYRINGE SC SCH (09:29)
[2022-04-11] MEDS: Senokot S 8.6-50 MG TAB PER TUBE SCH ×2 (09:30→19:36)
[2022-04-11] MEDS: Famotidine 20 MG TAB PO SCH ×2 (09:30→19:36)
[2022-04-11] MEDS: Lactated Ringer's 1,000 ML IV SCH (11:18)
[2022-04-11] MEDS: Azithromycin 250 MG, Admixture Fee 1 EACH in Sodium Chloride 0.9% 250 ML 250 ML IVPB SCH (12:05)
[2022-04-11] MEDS ORDERED: Furosemide 20 MG/2 ML VIAL SLOW IVP SCH (14:30)
[2022-04-11] MEDS: Acetaminophen 325 MG TAB PO PRN (19:34)
[2022-04-11] MEDS ORDERED: Lorazepam 1 MG TAB PO SCH (21:15)
[2022-04-12] MEDS: Lorazepam 1 MG TAB PO PRN ×3 (03:34→17:00)
[2022-04-12] MEDS: methylPREDNISolone Sod Succ 40 MG VIAL IVP SCH ×3 (05:28→21:22)
[2022-04-12 06:40] VITALS: BMI 18.2
[2022-04-12] MEDS: Acetaminophen 325 MG TAB PO PRN ×2 (08:51→20:33)
[2022-04-12] MEDS: Famotidine 20 MG TAB PO SCH ×2 (08:59→20:31)
[2022-04-12] MEDS: Enoxaparin Sodium 40 MG/0.4 ML SYRINGE SC SCH (09:00)
[2022-04-12] MEDS: Senokot S 8.6-50 MG TAB PER TUBE SCH ×2 (10:36→20:32)
[2022-04-12] MEDS: Azithromycin 250 MG, Admixture Fee 1 EACH in Sodium Chloride 0.9% 250 ML 250 ML IVPB SCH (11:26)
[2022-04-12] MEDS ORDERED: Chloraseptic Spray 180 ml Bottle PO PRN (15:58)
[2022-04-12] MEDS: guaiFENesin/DM ER PO SCH (20:32)
[2022-04-13] MEDS: Lorazepam 1 MG TAB PO PRN ×4 (00:47→21:11)
[2022-04-13] MEDS: Fioricet 325/50/40 mg Tablet PO PRN ×3 (01:20→23:55)
[2022-04-13] MEDS: Guaifenesin DM 100-10/5 ML UDCUP PO PRN ×4 (01:20→21:11)
[2022-04-13] MEDS: methylPREDNISolone Sod Succ 40 MG VIAL IVP SCH ×2 (05:46→13:36)
[2022-04-13] MEDS: Enoxaparin Sodium 40 MG/0.4 ML SYRINGE SC SCH (07:48)
[2022-04-13] MEDS: Famotidine 20 MG TAB PO SCH ×2 (07:48→21:14)
[2022-04-13] MEDS: guaiFENesin/DM ER PO SCH ×2 (07:49→21:15)
[2022-04-13] MEDS: Senokot S 8.6-50 MG TAB PER TUBE SCH ×2 (07:49→21:14)
[2022-04-13] MEDS ORDERED: FLUoxetine HCl 20 MG CAP PO SCH (09:00)
[2022-04-13] MEDS: Azithromycin 250 MG, Admixture Fee 1 EACH in Sodium Chloride 0.9% 250 ML 250 ML IVPB SCH (11:27)
[2022-04-13] MEDS: Acetaminophen 325 MG TAB PO PRN ×2 (13:36→21:12)
[2022-04-13 20:13] VITALS: BP 165/94; TEMP 99.6
[2022-04-14] MEDS: Lorazepam 1 MG TAB PO PRN (03:41)
[2022-04-14] MEDS: Guaifenesin DM 100-10/5 ML UDCUP PO PRN (03:44)
[2022-04-14] MEDS: Fioricet 325/50/40 mg Tablet PO PRN (03:48)
[2022-04-14] MEDS: guaiFENesin/DM ER PO SCH (06:56)
[2022-04-14] MEDS: Senokot S 8.6-50 MG TAB PER TUBE SCH (06:56)
[2022-04-14] MEDS ORDERED: predniSONE 20 MG TAB PO SCH (08:00)
== END 2022-04-14 09:18 | disposition home or self-care (01) | DRG 870 ==
LOC: ERS 08:55 → CCU 10:30 → T4-B 04-12 10:58 → UNDODISIN 04-14 07:40
PROVIDERS: ADMIT Internal Medicine; ATTEND Internal Medicine
PROC: 5A1955Z Respiratory Ventilation, Greater than 96 Consecutive Hours (ICD-10-PCS; principal; 2022-04-06)
PROC: 0BH18EZ Insertion of Endotracheal Airway into Trachea, Via Natural or Artificial Opening Endoscopic (ICD-10-PCS; 2022-04-06)
PROC: 3E03329 Introduction of Other Anti-infective into Peripheral Vein, Percutaneous Approach (ICD-10-PCS; 2022-04-06)
PROC: 0D9670Z Drainage of Stomach with Drainage Device, Via Natural or Artificial Opening (ICD-10-PCS; 2022-04-06)
PROC: 3E033XZ Introduction of Vasopressor into Peripheral Vein, Percutaneous Approach (ICD-10-PCS; 2022-04-06)
PROC: 5A09357 Assistance with Respiratory Ventilation, Less than 24 Consecutive Hours, Continuous Positive Airway Pressure (ICD-10-PCS; 2022-04-11)
DX: A41.9 Sepsis, unspecified organism (principal); R65.21 Severe sepsis with septic shock; J96.01 Acute respiratory failure with hypoxia; J96.02 Acute respiratory failure with hypercapnia; E43 Unspecified severe protein-calorie malnutrition; G93.41 Metabolic encephalopathy; J44.1 Chronic obstructive pulmonary disease with (acute) exacerbation; E87.2 Acidosis; J90 Pleural effusion, not elsewhere classified; Z68.1 Body mass index [BMI] 19.9 or less, adult; R73.9 Hyperglycemia, unspecified; Z20.822 Contact with and (suspected) exposure to COVID-19; F41.9 Anxiety disorder, unspecified; F32.A Depression, unspecified; Z87.891 Personal history of nicotine dependence; Z79.899 Other long term (current) drug therapy; Z98.51 Tubal ligation status; Z90.49 Acquired absence of other specified parts of digestive tract; Z30.2 Encounter for sterilization; Z98.890 Other specified postprocedural states
CPT/HCPCS: 36415; 36416; 36600; 71045; 80048; 80053; 81003; 81015; 82533; 82805; 83036; 83605; 83880; 84145; 84443; 84484; 85025; 87040; 87086; 87804; 89220; 93005; 94002; 94003; 94640; 94660; 96365; 96367; 96368; 96375; 96376; 99292; J0456; J0692; J1650; J1815; J1940; J1956; J2060; J2250; J2704; J2920; J2930; J3010; J3370; J3475; J3490; J7050; J7120; J7611; J7620; U0003; U0005